=== PATIENT | female | born 1960 | race Caucasian/White ===

== ENCOUNTER → 2017-12-04 07:47 | Outpatient (CLI) | payer BC, SELFPAY ==
[2017-12-04 14:15] LABS: Basophils % 0.3 % (0.1-2.0); Eosinophils # 0.2 K/mm3 (0.0-0.4); Eosinophils % 3.2 % (0.1-12.0); Hematocrit 37.4 % (37.0-47.0); Hemoglobin 12.3 g/dL (12.2-16.2); Lymphocytes % 30.1 K/mm3 (10-50); Mean Corpuscular HGB Conc 32.9 g/dL (31.8-35.4); Mean Corpuscular Hemoglobin 28.5 pg (27.0-31.2); Mean Corpuscular Volume 86.8 fl (81-99); Mean Platelet Volume 8.6 fl (7.4-10.4); Monocytes # 0.4 K/mm3 (0.1-1.0); Monocytes % 5.7 % (1.7-9.3); Neutrophils # 4.1 K/mm3 (1.8-7.8); Neutrophils % 60.7 % (37.0-80.0); Platelet Count 177 K/mm3 (142-424); Red Blood Count 4.31 M/mm3 (4.20-5.40); Red Cell Distribution Width 15.4 % (11.5-17.5); White Blood Count 6.7 K/mm3 (4.8-10.8)
[2017-12-04 14:37] LABS: Alanine Aminotransferase 27 U/L (12-78); Albumin Level 3.8 gm/dL (3.4-5.0); Alkaline Phosphatase 89 U/L (46-116); Anion Gap 11.5 mEq/L (5-15); Aspartate Amino Transferase 24 U/L (15-37); Bilirubin,Direct 0.2 mg/dL (0.0-0.2); Bilirubin,Total 0.8 mg/dL (0.2-1.0); Blood Urea Nitrogen 14 mg/dL (7-18); Carbon Dioxide 30 mmol/L (21.0-32.0); Chloride 103 mmol/L (98-107); Chol/HDL Ratio 3.5 (1-3.5); Cholesterol 112 mg/dL (140-200); Creatinine,Serum 0.76 mg/dL (0.55-1.02); Estimated Glomerular Filt Rate > 60 ml/min (>60); Free T4 (Free Thyroxine) 1.64 ng/dl (0.76-1.46); GFR (African American) > 60 ML/MIN (>60); Glucose 132 mg/dL (74-106); HDL Cholesterol 32 mg/dL (29-89); LDL Cholesterol 54 mg/dL (0-130); Potassium 3.5 mmoL/L (3.5-5.1); Sodium 141 mmol/L (136-145); Thyroid Stimulating Hormone 1.58 uIU/ml (0.358-3.740); Total Protein,Serum 6.5 gm/dL (6.4-8.2); Triglycerides 131 mg/dL (30-200); VLDL Cholesterol 26 mg/dL (0-40)
== END ==
PROVIDERS: PCP Internal Medicine; Visit Provider Internal Medicine
DX: E78.5 Hyperlipidemia, unspecified (principal)
CPT/HCPCS: 36415; 80048; 80061; 80076; 84439; 84443; 85025

== ENCOUNTER → 2017-12-28 09:08 | Outpatient (CLI) | payer BC, SELFPAY ==
[2017-12-28 13:25] LABS: Basophils % 0.5 % (0.1-2.0); Eosinophils # 0.1 K/mm3 (0.0-0.4); Eosinophils % 1.4 % (0.1-12.0); Hematocrit 38.1 % (37.0-47.0); Hemoglobin 12.5 g/dL (12.2-16.2); Lymphocytes # 1.7 K/mm3 (0.7-4.5); Lymphocytes % 20.7 K/mm3 (10-50); Mean Corpuscular HGB Conc 32.8 g/dL (31.8-35.4); Mean Corpuscular Hemoglobin 27.9 pg (27.0-31.2); Mean Corpuscular Volume 85.1 fl (81-99); Mean Platelet Volume 8.3 fl (7.4-10.4); Monocytes # 0.3 K/mm3 (0.1-1.0); Monocytes % 3.9 % (1.7-9.3); Neutrophils # 6.2 K/mm3 (1.8-7.8); Neutrophils % 73.5 % (37.0-80.0); Platelet Count 185 K/mm3 (142-424); Red Blood Count 4.48 M/mm3 (4.20-5.40); Red Cell Distribution Width 15.1 % (11.5-17.5); White Blood Count 8.4 K/mm3 (4.8-10.8)
[2017-12-28 14:05] LABS: Hemoglobin A1C 6.7 % (0.0-7.0)
[2017-12-28 14:06] LABS: Alanine Aminotransferase 29 U/L (12-78); Albumin Level 3.8 gm/dL (3.4-5.0); Albumin/Globulin Ratio 1.3 (1.1-1.8); Alkaline Phosphatase 101 U/L (46-116); Anion Gap 16.4 mEq/L (5-15); Aspartate Amino Transferase 16 U/L (15-37); Bilirubin,Total 1.6 mg/dL (0.2-1.0); Blood Urea Nitrogen 15 mg/dL (7-18); Calcium 8.9 mg/dL (8.5-10.1); Carbon Dioxide 28 mmol/L (21.0-32.0); Chloride 104 mmol/L (98-107); Creatinine,Serum 0.62 mg/dL (0.55-1.02); Estimated Glomerular Filt Rate 99 ml/min (>60); GFR (African American) 120 ML/MIN (>60); Globulin 2.9 gm/dl (1.3-3.2); Glucose 140 mg/dL (74-106); Potassium 3.4 mmoL/L (3.5-5.1); Sodium 145 mmol/L (136-145); Total Protein,Serum 6.7 gm/dL (6.4-8.2); Uric Acid 5.3 mg/dL (2.6-7.2)
[2017-12-29 10:17] LABS: Creatinine, Urine 96.1 mg/dL (Not Estab.)
== END ==
PROVIDERS: PCP Nurse Practitioner Family; Visit Provider Nurse Practitioner Family
DX: E11.9 Type 2 diabetes mellitus without complications (principal); B99.9 Unspecified infectious disease; M10.9 Gout, unspecified
CPT/HCPCS: 36415; 80053; 82043; 83036; 84550; 85025

== ENCOUNTER → 2018-03-31 11:40 | Outpatient (CLI) | payer BC, SELFPAY ==
--- NOTE | 2018-03-31 11:45 | XR_ITS ---
XR sinus min 3V CLINICAL INDICATION: Right-sided facial pain and swelling, infected 2 ITS.REASON: INFECTION ORDERING PHYSICIAN: Dayana Orr PATIENT AGE: 58 years FINDINGS: There is irregular contour of the right mandibular molars consistent with caries involvement. There is mild mucosal thickening of the right maxillary sinus. No air-fluid level. No other significant anomalies evident. IMPRESSION: 1. Caries of the right mandibular molars. 2. Mild mucosal thickening right maxillary sinus
== END ==
PROVIDERS: PCP Nurse Practitioner Family; Visit Provider Nurse Practitioner Family
DX: J32.9 Chronic sinusitis, unspecified (principal)
CPT/HCPCS: 70220

== ENCOUNTER → 2019-06-15 13:39 | Outpatient (CLI) | payer BC, SELFPAY ==
[2019-06-15 14:13] LABS: Basophils % 0.6 % (0.1-2.0); Eosinophils # 0.2 K/mm3 (0.0-0.4); Hematocrit 38.8 % (37.0-47.0); Hemoglobin 12.4 g/dL (12.2-16.2); Lymphocytes % 28.8 % (10-50); Mean Corpuscular HGB Conc 32.1 g/dL (31.8-35.4); Mean Corpuscular Hemoglobin 26.4 pg (27.0-31.2); Mean Corpuscular Volume 82.4 fl (81-99); Mean Platelet Volume 8.7 fl (7.4-10.4); Monocytes # 0.4 K/mm3 (0.1-1.0); Monocytes % 5.9 % (1.7-9.3); Neutrophils # 4.3 K/mm3 (1.8-7.8); Neutrophils % 61.7 % (37.0-80.0); Platelet Count 206 K/mm3 (142-424); Red Blood Count 4.71 M/mm3 (4.20-5.40); Red Cell Distribution Width 15.3 % (11.5-17.5)
[2019-06-15 14:31] LABS: Alanine Aminotransferase 66 U/L (12-78); Albumin/Globulin Ratio 1.3 (1.1-1.8); Alkaline Phosphatase 87 U/L (46-116); Anion Gap 18.1 mEq/L (5-15); Aspartate Amino Transferase 56 U/L (15-37); Bilirubin,Total 1.1 mg/dL (0.2-1.0); Blood Urea Nitrogen 25 mg/dL (7-18); Calcium 9.4 mg/dL (8.5-10.1); Carbon Dioxide 24 mmol/L (21.0-32.0); Chloride 103 mmol/L (98-107); Chol/HDL Ratio 4.3 (1-3.5); Cholesterol 126 mg/dL (140-200); Creatinine,Serum 0.89 mg/dL (0.55-1.02); Estimated Glomerular Filt Rate 65 ml/min (>60); GFR (African American) 78 ML/MIN (>60); Globulin 3.1 gm/dl (1.3-3.2); Glucose 163 mg/dL (74-106); HDL Cholesterol 29 mg/dL (29-89); LDL Cholesterol 44 mg/dL (0-130); Potassium 4.1 mmoL/L (3.5-5.1); Sodium 141 mmol/L (136-145); T4 (Thyroxine) 13.1 ug/dl (4.7-13.3); Thyroid Stimulating Hormone 0.79 uIU/ml (0.358-3.740); Total Protein,Serum 7.1 gm/dL (6.4-8.2); Triglycerides 267 mg/dL (30-200); Uric Acid 6.7 mg/dL (2.6-7.2); VLDL Cholesterol 53 mg/dL (0-40)
[2019-06-15 16:59] LABS: Hemoglobin A1C 7.3 % (0.0-7.0)
[2019-06-16 22:06] LABS: Vitamin D 25 Hydroxy 31.9 ng/mL (30.0-100.0)
== END ==
PROVIDERS: Visit Provider Physician Assistant
DX: E03.9 Hypothyroidism, unspecified (principal); I10 Essential (primary) hypertension; M10.9 Gout, unspecified; E78.5 Hyperlipidemia, unspecified
CPT/HCPCS: 80053; 80061; 82652; 83036; 84436; 84443; 84550; 85025

== ENCOUNTER → 2019-07-14 07:42 | Outpatient (CLI) | payer BC, SELFPAY ==
--- NOTE | 2019-07-14 07:46 | CA_ITS ---
APPROVED REPORT Senior Business Consultant: TRINITY Laterality: Bilateral Study Quality: Good Indications: bilateral carotid artery stenosis Risk Factors Hypertension: TIA/CVA History Hyperlipidemia Diabetes, Doppler Spectral Velocity Analysis ECA (R) 178.00/22.60 cm/s ECA (L) 285.00/48.50 cm/s dICA (R) 88.60/36.70 cm/s dICA (L) 80.80/30.10 cm/s Del (R) 72.80/27.90 cm/s Del (L) 84.40/31.70 cm/s pICA (R) 114.00/29.40 cm/s pICA (L) 65.80/24.60 cm/s dCCA (R) 64.40/20.40 cm/s dCCA (L) 64.90/20.60 cm/s pCCA (R) 62.90/14.10 cm/s pCCA (L) 64.30/9.37 cm/s Vert (R) 26.60/13.70 cm/s Vert (L) 50.90/19.60 cm/s ICA/CCA 1.77 ICA/CCA 1.30 Findings Duplex evaluation demonstrates stenosis of the right proximal internal carotid artery in the range of 20-49% with PSV <140 cm/sec, EDV <100 cm/sec, and IC/CC Ratio <4.0.Duplex evaluation demonstrates stenosis of the left proximal internal carotid artery in the range of 20-49% with PSV <140 cm/sec, EDV <100 cm/sec, and IC/CC Ratio <4.0.Antegrade flow seen bilateral vertebral arteries. Conclusion Duplex evaluation demonstrates stenosis of the right proximal internal carotid artery in the range of 20-49% with PSV <140 cm/sec, EDV <100 cm/sec, and IC/CC Ratio <4.0.Duplex evaluation demonstrates stenosis of the left proximal internal carotid artery in the range of 20-49% with PSV <140 cm/sec, EDV <100 cm/sec, and IC/CC Ratio <4.0.Antegrade flow seen bilateral vertebral arteries. Electronically signed by : Larry Stewart MD 07/14/2019 19:34:47
--- NOTE | 2019-07-14 07:46 | CA_ITS ---
APPROVED REPORT EXAM: Comprehensive 2D, Doppler, and color-flow Echocardiogram Header Boss: Jeri Freeman RT(R) Ht: 5 ft 5 in Wt: 258lbs BSA: 2.20 BP: 126/84 mmHg Indications: Shortness of Breath, Diabetes, Obesity, Hyperlipidemia, Hypertension/HDD Left Ventricle Left atrium is mildly enlarged, left ventricle is normal size, there is mild concentric left ventricular hypertrophy, visually estimated ejection fraction 55% with no regional wall motion abnormality, grade 1 diastolic dysfunction seen with tissue Doppler evidence of raise left atrial pressure. Right Ventricle Right atrium and right ventricular normal size and contractility. Aortic Valve Aortic valve is thickened and calcified, leaflet continue to display mobility, there is no aortic stenosis, there is trace aortic insufficiency. Mitral Valve Mitral valve leaflets are minimally thickened, there is no mitral stenosis, there is mild mitral regurgitation. Tricuspid Valve Tricuspid valve is grossly normal, there is mild tricuspid regurgitation, tricuspid regurgitation jet velocity is inadequate for occlusion of the right ventricular systolic pressure. Pulmonic Valve Pulmonic valve is poorly visualized. Great Vessels Aortic root is normal size. Pericardium No significant pericardial effusion noted. 2D Dimensions LVOT 2.20 cm (M/F) 1.5-2.5 M-Mode Dimensions RVDd 2.20 cm (0.9-2.6) LA Diam 3.30 cm (1.9-4.0) LVDd 5.40 cm (3.5-5.7) Ao Diam 2.50 cm (2.0-3.7) LVDs 3.10 cm (3.5-5.7) AV Cusp 1.80 cm (1.5-2.6) IVSd 0.90 cm (0.6-1.1) PWd 0.80 cm (0.6-1.1) EF (Teich) 73.10% FS 42.60% EDV (Teich) 141.00 mL ESV (Teich) 37.90 mL LV Diastology E/A Ratio 1.0 MED E' 6.43 (< 7 cm/sec) E'/MED E' Ratio 14.30 (>14) LAT E' 6.34 (<10 cm/sec) E/LAT E' Ratio 14.50 (>14) Mitral Valve MV E Max Arnol. 91.80 (40-130 cm/s) MV A Velocity 94.30 (40-130 cm/s) E/A Ratio 1.00 Conclusion 1. Mildly enlarged left atrium, normal left ventricular size, mild concentric left ventricular hypertrophy, visually estimated ejection fraction 55% with no regional wall motion abnormality, grade 1 diastolic dysfunction seen with tissue Doppler evidence of raise left atrial pressure. 2. Thickened and calcified aortic valve without aortic stenosis, there is trace aortic insufficiency. 3. Mild mitral and tricuspid regurgitation. 4. No significant pericardial effusion noted. Electronically signed by : Cody Montesinos, 07/15/2019 10:11:34
== END ==
PROVIDERS: PCP Emergency Medicine; Visit Provider Internal Medicine Cardiovascular Disease
DX: E11.9 Type 2 diabetes mellitus without complications (principal); I65.23 Occlusion and stenosis of bilateral carotid arteries; R06.00 Dyspnea, unspecified; E78.5 Hyperlipidemia, unspecified; I10 Essential (primary) hypertension; Z79.84 Long term (current) use of oral hypoglycemic drugs
CPT/HCPCS: 93306; 93880

== ENCOUNTER → 2019-12-13 07:34 | Outpatient (CLI) | payer BC, SELFPAY ==
[2019-12-13 14:10] LABS: Alanine Aminotransferase 40 U/L (12-78); Albumin Level 3.9 gm/dL (3.4-5.0); Albumin/Globulin Ratio 1.3 (1.1-1.8); Alkaline Phosphatase 94 U/L (46-116); Anion Gap 16.6 mEq/L (5-15); Aspartate Amino Transferase 41 U/L (15-37); Bilirubin,Total 1.1 mg/dL (0.2-1.0); Blood Urea Nitrogen 13 mg/dL (7-18); Calcium 9.4 mg/dL (8.5-10.1); Carbon Dioxide 26 mmol/L (21.0-32.0); Chloride 102 mmol/L (98-107); Chol/HDL Ratio 4.5 (1-3.5); Cholesterol 143 mg/dL (140-200); Creatinine,Serum 0.64 mg/dL (0.55-1.02); Estimated Glomerular Filt Rate 95 ml/min (>60); GFR (African American) 115 ML/MIN (>60); Globulin 2.9 gm/dl (1.3-3.2); Glucose 197 mg/dL (74-106); HDL Cholesterol 32 mg/dL (29-89); LDL Cholesterol 71 mg/dL (0-130); Potassium 3.6 mmoL/L (3.5-5.1); Sodium 141 mmol/L (136-145); T4 (Thyroxine) 15.1 ug/dl (4.7-13.3); Thyroid Stimulating Hormone 1.66 uIU/ml (0.358-3.740); Total Protein,Serum 6.8 gm/dL (6.4-8.2); Triglycerides 198 mg/dL (30-200); VLDL Cholesterol 40 mg/dL (0-40)
[2019-12-13 14:11] LABS: Basophils % 0.4 % (0.1-2.0); Eosinophils # 0.3 K/mm3 (0.0-0.4); Hematocrit 39.1 % (37.0-47.0); Lymphocytes # 2.2 K/mm3 (0.7-4.5); Lymphocytes % 30.3 % (10-50); Mean Corpuscular HGB Conc 33.2 g/dL (31.8-35.4); Mean Corpuscular Hemoglobin 27.8 pg (27.0-31.2); Mean Corpuscular Volume 83.8 fl (81-99); Mean Platelet Volume 9.8 fl (7.4-10.4); Monocytes # 0.4 K/mm3 (0.1-1.0); Monocytes % 5.9 % (1.7-9.3); Neutrophils # 4.3 K/mm3 (1.8-7.8); Neutrophils % 59.5 % (37.0-80.0); Platelet Count 221 K/mm3 (142-424); Red Blood Count 4.66 M/mm3 (4.20-5.40); Red Cell Distribution Width 14.9 % (11.5-17.5); White Blood Count 7.2 K/mm3 (4.8-10.8)
[2019-12-13 15:41] LABS: Hemoglobin A1C 7.6 % (0.0-7.0)
[2019-12-15 12:59] LABS: Vitamin D 25 Hydroxy 38.5
[2019-12-16 10:51] LABS: Microalbumin, Urine 56.9 ug/mL (Not Estab.)
== END ==
PROVIDERS: Visit Provider Physician Assistant
DX: E03.9 Hypothyroidism, unspecified (principal); E11.9 Type 2 diabetes mellitus without complications; E78.5 Hyperlipidemia, unspecified; I10 Essential (primary) hypertension; Z79.84 Long term (current) use of oral hypoglycemic drugs
CPT/HCPCS: 36415; 80053; 80061; 82043; 82652; 83036; 84436; 84443; 85025

== ENCOUNTER → 2021-03-12 07:33 | Outpatient (CLI) | payer BC, SELFPAY ==
[2021-03-12 14:05] LABS: Chloride 100 mmol/L (98-107)
[2021-03-12 14:06] LABS: Potassium 4.3 mmoL/L (3.5-5.1); Sodium 138 mmol/L (136-145)
[2021-03-12 14:08] LABS: Alanine Aminotransferase 35 U/L (12-78); Anion Gap 16.3 mEq/L (5-15); Aspartate Amino Transferase 49 U/L (14-36); Blood Urea Nitrogen 18 mg/dl (7-17); Carbon Dioxide 26 mmol/L (22.0-30.0); Estimated Glomerular Filt Rate 102 ml/min (>60); GFR (African American) 123 ML/MIN (>60)
[2021-03-12 14:09] LABS: Albumin Level 4.5 g/dl (3.5-5.0); Albumin/Globulin Ratio 1.7 (1.1-1.8); Alkaline Phosphatase 80 U/L (38-126); Bilirubin,Total 1.5 mg/dl (0.2-1.3); Calcium 9.8 mg/dl (8.4-10.2); Chol/HDL Ratio 4.9 (1-3.5); Cholesterol 137 mg/dl (140-200); Globulin 2.7 g/dL (1.3-3.2); Glucose 196 mg/dl (74-100); HDL Cholesterol 28 mg/dl (40-60); Total Protein,Serum 7.2 g/dl (6.3-8.2); Triglycerides 287 mg/dl (30-150); VLDL Cholesterol 57 mg/dL (0-40)
[2021-03-12 14:14] LABS: Basophils % 0.4 % (0.1-2.0); Eosinophils # 0.2 K/mm3 (0.0-0.4); Eosinophils % 2.9 % (0.1-12.0); Hematocrit 38.5 % (37.0-47.0); Hemoglobin 12.8 g/dL (12.2-16.2); Lymphocytes # 2.3 K/mm3 (0.7-4.5); Lymphocytes % 29.8 % (10-50); Mean Corpuscular HGB Conc 33.3 g/dL (31.8-35.4); Mean Corpuscular Volume 84.1 fl (81-99); Mean Platelet Volume 8.6 fl (7.4-10.4); Monocytes # 0.3 K/mm3 (0.1-1.0); Monocytes % 3.8 % (1.7-9.3); Neutrophils # 4.9 K/mm3 (1.8-7.8); Neutrophils % 63.2 % (37.0-80.0); Platelet Count 188 K/mm3 (142-424); Red Blood Count 4.58 M/mm3 (4.20-5.40); Red Cell Distribution Width 14.7 % (11.5-17.5); White Blood Count 7.7 K/mm3 (4.8-10.8)
[2021-03-12 14:20] LABS: Direct LDL Cholesterol 65.31 mg/dL (100-129)
[2021-03-12 14:21] LABS: Creatinine,Urine Random 120 mg/dL (Not Estab.)
[2021-03-12 14:23] LABS: 25-OH Vitamin D, Total 46.6 ng/mL (30-100)
[2021-03-12 14:24] LABS: Microalbumin/Creatinine Ratio 60.4; T4 (Thyroxine) 11.7 ug/dl (5.53-11.0)
[2021-03-12 14:38] LABS: Thyroid Stimulating Hormone 3.78 uIU/mL (0.465-4.68)
== END ==
PROVIDERS: Visit Provider Nurse Practitioner Family
DX: E03.9 Hypothyroidism, unspecified (principal); E11.9 Type 2 diabetes mellitus without complications; E78.5 Hyperlipidemia, unspecified; I10 Essential (primary) hypertension; I25.10 Atherosclerotic heart disease of native coronary artery without angina pectoris; Z79.84 Long term (current) use of oral hypoglycemic drugs; Z68.41 Body mass index [BMI] 40.0-44.9, adult
CPT/HCPCS: 36415; 80053; 80061; 82043; 82306; 82570; 83036; 84436; 84443; 85025

== ENCOUNTER 2021-10-21 10:49 | Emergency (ER) | payer BC, SELFPAY ==
[2021-10-21 10:50] VITALS: BP 169/98; PULSE 95; RESP 19; TEMP 36.9; O2SAT 96; BMI 38.7
[2021-10-21 11:18] LABS: UTC Strep Screen (Rapid) Negative (Negative)
--- NOTE | 2021-10-21 11:21 | HMH.EDUTC ---
[facility] [place] Clinical Impression: URI (upper respiratory infection) Qualifiers: URI type: unspecified URI Qualified Code(s): J06.9 - Acute upper respiratory infection, unspecified Disposition: Home, Self-Care Condition on Discharge: Good Instructions: DI for Sinusitis, Sinusitis, Cough, Sore Throat Additional Instructions: *Monitor Temp, Over the counter Motrin or Tylenol as directed/as needed Tylenol every 4 hours and Motrin every 6 hours (as long as your family doctor has told you that you can take it) for fever or pain. and straight to ER if unable to lower temp less than 101.0 after medication given *Warm salt water gargles may help to soothe the throat *Throat Lozenges *Warm fluids like tea with honey may help to soothe the throat *Sleep elevated *Humidifier/Vaporizer *Flonase 2 sprays in each nostril daily but be aware that it may take 2-3 days before you notice improvement Your throat swab was sent for culture. Those results are typically sent to your primary care. Be sure to follow up in 2-3 days with your family doctor/primary care physician if no improvement so they can review those result and treat if necessary. If you don?t have a primary care doctor, I recommend you get one but in the mean time, you will have to return to a walk in clinic Follow up IMMEDIATELY for new or worsening symptoms or no Noticeable improvement over the next 48-72 hours. 911 for difficulty breathing or swallowing You were tested for today for COVID19 your test result should be back in the next 24-48 hours, you check your results on the [facility] My Health Portal if you have trouble logging on you may call You was given a handout with instructions for Self Quarantine and Self isolation for while you wait on test results and what to do if they are positive If you are positive the Health Dept will be contacting you also Make sure to take your Vitamins Vit. C Vit D and Zinc if you can take them Prescriptions: Benzonatate [Benzonatate 100mg cap] 100 mg PO TID PRN #30 cap PRN Reason: Cough Transmission Status: Pending to [id number] Fluticasone Propionate [Flonase 50mcg nasal spray 16gm] 1 spr NS DAILY #1 each Transmission Status: Pending to [id number] Azithromycin [Z-Tacso 250mg Tab] 250 mg PO DIRECTED #6 tab Transmission Status: Pending to [id number] Referrals: Rhonda Hopper PA [Primary Care Provider] - As needed Time of Disposition: 11:35 Medical Decision Making - Ned Inquiry Pt receiving controlled substance: No Ned was queried for this patient: No Vital Signs: 10/21/21 10:50 Temperature 98.4 F Temperature Source Oral Pulse Rate [Right Brachial] 95 H Respiratory Rate 19 Blood Pressure [Right Arm] 169/98 H Blood Pressure Mean [Right Arm] 121 Blood Pressure Source [Right Arm] Automatic Cuff Blood Pressure Position [Right Arm] Sitting 02 Sat by Pulse Oximetry 96 Oxygen Delivery Method Room Air - Lab Data Lab results reviewed: Yes: I reviewed the patient's lab results. Lab Results 10/21/21 11:16: Strep Scn Rapid Clinic Negative Orders (Tests/Meds): ORDERS Category Date Time Status Strep Screen Confirmation Stat Micro 10/21/21 11:16 Received Medical Decision Narrative: Patient state that she has taken azithromycin in the past without reactions or complications [facility] [place] HPI - General Stated complaint: sore throat, cough, runny nose, congestion Time Seen by Provider: 10/21/21 11:21 Mode of Arrival: Ambulatory Source of Information: Patient Limitations: No Limitations Description of Symptoms (Recalled from Triage Doc. by RN): PATIENT C/O SORE THROAT, COUGH, AND EAR PAIN SINCE THURSDAY HEENT Symptoms (Recalled from RN notes): Yes Resp Symptoms (Recalled from RN notes): Yes Skin Symptoms (Recalled from RN notes): No MS Symptoms (Recalled from RN notes): No Functional Status (Recalled from RN notes): WNL - History of Present Illness Provider Complaint: Dane
[2021-10-21 11:43] VITALS: BP 169/98; PULSE 95; RESP 19; TEMP 36.9; O2SAT 96
== END 2021-10-21 11:50 | disposition home or self-care (01) ==
PROVIDERS: Emergency Provider Nurse Practitioner; PCP Physician Assistant
DX: J06.9 Acute upper respiratory infection, unspecified (principal); I25.10 Atherosclerotic heart disease of native coronary artery without angina pectoris; I10 Essential (primary) hypertension; E78.5 Hyperlipidemia, unspecified; E11.9 Type 2 diabetes mellitus without complications; Z79.899 Other long term (current) drug therapy
CPT/HCPCS: 87880; 99203; C9803; G0463; U0003; U0005

== ENCOUNTER → 2022-03-12 12:34 | Outpatient (CLI) | payer BC, SELFPAY ==
--- NOTE | 2022-03-12 12:35 | CA_ITS ---
FINAL REPORT TECHNIQUE: Color Doppler, duplex Doppler and caban scale sonography of the bilateral neck arterial vasculature was performed. Velocities were measured in the carotid arteries. Stenosis evaluation based on the validated velocity criteria. CLINICAL HISTORY: ORESTES, cad, dm, HTN,HLD, EX-SMOKER FINDINGS: The peak systolic velocity of the right common carotid artery is 79 cm/s. The peak systolic velocity of the right internal carotid artery is 140 cm/s and end diastolic velocity 38 cm/s. The ICA/CCA ratio is 2.3. A moderate amount of plaque is present. The right external carotid artery is patent. The right vertebral artery is patent with antegrade flow. The peak systolic velocity of the left common carotid artery is 63 cm/s. The peak systolic velocity of the left internal carotid artery is 190 cm/s and end diastolic velocity 49 cm/s. The ICA/CCA ratio is 3.2. A moderate amount of plaque is present. The left external carotid artery is patent.The left vertebral artery is patent with antegrade flow. IMPRESSION: The peak systolic velocity is less than 180 cm/s bilaterally however the ICA to CCA ratios are abnormally elevated measuring 2.3 on the right and 3.2 on the left. These findings are concerning for greater than 50% stenosis bilaterally, left greater than right. Recommend correlation with CTA. Bilateral patent vertebral arteries with antegrade flow. Reviewed, Interpreted and Dictated by Malik Mosquera MD Transcribed by Eleanor Sykes Authenticated by Malik Mosquera MD on 03/12/2022 02:46:[address] [facility]
--- NOTE | 2022-03-12 12:55 | CA_ITS ---
APPROVED REPORT EXAM: Comprehensive 2D, Doppler, and color-flow Echocardiogram Car Supplier: Jeri Freeman RT(R) Ht: 5 ft 5 in Wt: 240lbs BSA: 2.14 BP: 138/62 mmHg Indications: SOA, CAD, Obesity,DM, HTN, HLD, ex-smoker 2D Dimensions Aortic Root 2.06 cm LA Volume 26.60 mL LA Volume Index 12.40 mL/m2 (M/F) 16-34 M-Mode Dimensions RVDd 2.17 cm (0.9-2.6) LA Diam 2.86 cm (1.9-4.0) LVDd 4.37 cm (3.5-5.7) Ao Diam 2.63 cm (2.0-3.7) LVDs 3.23 cm (3.5-5.7) IVSd 1.22 cm (0.6-1.1) PWd 0.80 cm (0.6-1.1) EF (Teich) 51.40% FS 26.10% EDV (Teich) 86.30 mL ESV (Teich) 41.90 mL LV Diastology E Decel Time 210.00 (160-240 msec) E/A Ratio 0.72 MED E' 7.00 (< 7 cm/sec) E'/MED E' Ratio 10.54 (>14) LAT E' 5.30 (<10 cm/sec) E/LAT E' Ratio 13.92 (>14) Mitral Valve MV E Max Arnol. 74.00 (40-130 cm/s) MV A Velocity 102.00 (40-130 cm/s) E/A Ratio 0.72 MV Decel. Time 210.00 (160-240 ms) MV PHT 62.00 ms Left Ventricle Left atrium is mildly enlarged, left ventricle is normal size, mild concentric left ventricular hypertrophy, estimated ejection fraction 55% with no regional wall motion abnormality, grade 1 diastolic dysfunction. Left atrium with evidence of raise left atrial pressure. Right Ventricle Right atrium and right ventricle are normal size and contractility. Aortic Valve Aortic valve is thickened and calcified without Doppler evidence of aortic stenosis or aortic insufficiency. Mitral Valve Mitral valve is grossly normal, there is trace mitral regurgitation. Tricuspid Valve Tricuspid valve grossly normal, there is trace tricuspid regurgitation. Tricuspid regurgitation but this is inadequate for calculation of the right ventricular systolic pressure. Pulmonic Valve Pulmonic valve is poorly visualized. Great Vessels Aortic root is normal size. Inferior vena cava is poorly visualized. Pericardium No significant pericardial effusion noted. Conclusion 1. Left atrium is mildly enlarged, left ventricle is normal size, mild concentric left ventricular hypertrophy, estimated ejection fraction 55% with no regional wall motion abnormality, grade 1 diastolic dysfunction seen without tissue Doppler evidence of raise left atrial pressure. 2. Thickened and calcified aortic valve without aortic stenosis or aortic insufficiency. 3. Trace mitral and tricuspid regurgitation. 4. No significant pericardial effusion noted. Electronically signed by : oCdy Montesinos MD 03/12/2022 20:15:59
== END ==
PROVIDERS: PCP Physician Assistant; Visit Provider Nurse Practitioner Family
DX: R06.00 Dyspnea, unspecified (principal); E78.2 Mixed hyperlipidemia; R09.89 Other specified symptoms and signs involving the circulatory and respiratory systems; I65.23 Occlusion and stenosis of bilateral carotid arteries; I25.10 Atherosclerotic heart disease of native coronary artery without angina pectoris; I10 Essential (primary) hypertension; I73.9 Peripheral vascular disease, unspecified
CPT/HCPCS: 82330; 83970; 93306; 93880

== ENCOUNTER → 2022-03-12 17:01 | Outpatient (CLI) | payer BC, SELFPAY ==
[2022-03-12 14:01] LABS: Basophils # 0.1 K/mm3 (0-0.2); Basophils % 0.9 % (0.1-2.0); Eosinophils # 0.2 K/mm3 (0.0-0.4); Eosinophils % 2.6 % (0.1-12.0); Hematocrit 39.6 % (37.0-47.0); Hemoglobin 13.3 g/dL (12.2-16.2); Lymphocytes # 1.8 K/mm3 (0.7-4.5); Mean Corpuscular HGB Conc 33.4 g/dL (31.8-35.4); Mean Corpuscular Hemoglobin 29.4 pg (27.0-31.2); Mean Corpuscular Volume 87.9 fl (81-99); Mean Platelet Volume 9.4 fl (7.4-10.4); Monocytes # 0.3 K/mm3 (0.1-1.0); Monocytes % 4.4 % (1.7-9.3); Neutrophils # 3.5 K/mm3 (1.8-7.8); Neutrophils % 60.1 % (37.0-80.0); Platelet Count 196 K/mm3 (142-424); Red Blood Count 4.51 M/mm3 (4.20-5.40); White Blood Count 5.8 K/mm3 (4.8-10.8)
[2022-03-12 14:39] LABS: 25-OH Vitamin D, Total 35.8 ng/mL (30-100)
[2022-03-12 14:50] LABS: Microalbumin/Creatinine Ratio 163.2
[2022-03-12 14:54] LABS: Creatinine,Urine Random 86 mg/dL (Not Estab.)
[2022-03-12 15:06] LABS: Hemoglobin A1C 9.5 % (4.0-6.0)
[2022-03-12 15:56] LABS: Alanine Aminotransferase 51 U/L (12-78); Albumin Level 4.5 g/dl (3.5-5.0); Albumin/Globulin Ratio 1.6 (1.1-1.8); Alkaline Phosphatase 84 U/L (38-126); Anion Gap 18.3 mEq/L (5-15); Aspartate Amino Transferase 82 U/L (14-36); Bilirubin,Total 2.1 mg/dl (0.2-1.3); Blood Urea Nitrogen 21 mg/dl (7-17); Carbon Dioxide 26 mmol/L (22.0-30.0); Chloride 101 mmol/L (98-107); Chol/HDL Ratio 5.3 (1-3.5); Cholesterol 122 mg/dl (140-200); Estimated Glomerular Filt Rate 101 ml/min (>60); GFR (African American) 123 ML/MIN (>60); Globulin 2.9 g/dL (1.3-3.2); Glucose 230 mg/dl (74-100); HDL Cholesterol 23 mg/dl (40-60); Potassium 4.3 mmoL/L (3.5-5.1); Sodium 141 mmol/L (136-145); Total Protein,Serum 7.4 g/dl (6.3-8.2); Triglycerides 335 mg/dl (30-150); VLDL Cholesterol 67 mg/dL (0-40)
[2022-03-12 16:07] LABS: Direct LDL Cholesterol 47.75 mg/dL (100-129)
[2022-03-12 16:27] LABS: Thyroid Stimulating Hormone 0.08 uIU/mL (0.465-4.68)
== END ==
PROVIDERS: Visit Provider Physician Assistant
DX: E03.9 Hypothyroidism, unspecified (principal); E11.9 Type 2 diabetes mellitus without complications; I10 Essential (primary) hypertension; E66.9 Obesity, unspecified; Z68.41 Body mass index [BMI] 40.0-44.9, adult
CPT/HCPCS: 80053; 80061; 82043; 82306; 82570; 83036; 84443; 85025

== ENCOUNTER → 2022-03-19 10:13 | Outpatient (CLI) | payer BC, SELFPAY | PROVIDERS: PCP Physician Assistant; Visit Provider Internal Medicine | DX: I65.29 Occlusion and stenosis of unspecified carotid artery (principal) ==

== ENCOUNTER → 2022-04-02 07:53 | Outpatient (CLI) | payer BC, SELFPAY ==
--- NOTE | 2022-04-02 07:54 | CT_ITS ---
FINAL REPORT CLINICAL HISTORY: molina FINDINGS: CTA HEAD With regards the intracranial vessels, the bilateral anterior cerebral, middle cerebral and posterior cerebral arteries are patent. There is 30-40% stenosis of the pre cavernous right ICA. The basilar artery is patent. There is no evidence of aneurysm formation. IMPRESSION: 30-40% stenosis of the pre cavernous right ICA. CTA NECK Thin section axial CT with contrast with multiplanar reconstruction NASCET criteria and technique was utilized during interpretation. Aortic arch: Arch shows no significant narrowing. Great vessel origins are widely patent . Right carotid: There is less than 30% stenosis in the distal right CCA.. There is approximately 30% stenosis at the level of the right carotid bulb. More distal ICA is patent. The right vertebral artery is smaller than the left. Left carotid: No significant stenosis is seen of the cervical common or internal carotid artery . There is calcified plaque at the left carotid bifurcation. Vertebrals: Left vertebral artery is dominant and patent. No significant stenosis is present . IMPRESSION: Approximately 30% stenosis at the level of the right carotid bulb. Less than 30% stenosis of the distal right CCA. Reviewed, Interpreted and Dictated by Sammy Mishra III, MD Transcribed by Juarez Amin Authenticated by Sammy Mishra III, MD on 04/02/2022 11:17:27 AM [facility]
--- NOTE | 2022-04-02 07:54 | CT_ITS ---
FINAL REPORT TECHNIQUE: Axial CT images of the abdomen were obtained with IV contrast only. Coronal reformatted images were also obtained. This study was performed with techniques to keep radiation doses as low as reasonably achievable (ALARA). Individualized dose reduction techniques using automated exposure control or adjustment of mA and/or kV according to the patient''s size were employed. CLINICAL HISTORY: r/o malignancy, elevated calcium levels FINDINGS: The lung bases are clear. The liver has an unremarkable appearance, without evidence of mass. There is a large gallstone in the gallbladder. There is no evidence of biliary ductal dilatation. The pancreas appears normal. The spleen size is within normal limits. There are bilateral renal cysts, largest on the right at 27 mm. There is a right renal artery stent. There is a duplicated right renal collecting system. There is mild bilateral renal scarring. There is no evidence of adenopathy. No abnormal fluid collection is seen. No localized inflammatory processes identified. There are moderate vascular calcifications. IMPRESSION: Cholelithiasis. Moderate vascular calcifications. Bilateral renal cysts. Reviewed, Interpreted and Dictated by Sammy Mishra III, MD Transcribed by Juarez Amin Authenticated by Sammy Mishra III, MD on 04/02/2022 11:03:49 AM [facility]
--- NOTE | 2022-04-02 08:48 | CT_ITS ---
FINAL REPORT CLINICAL HISTORY: ORESTES FINDINGS: Axial images of the head were obtained without and with contrast. Coronal reformatted images were also obtained. This study was performed with techniques to keep radiation doses as low as reasonably achievable (ALARA). Individualized dose reduction techniques using automated exposure control or adjustment of mA and/or kV according to the patient's size were employed. There is no evidence of intracranial hemorrhage or mass. There is no evidence of acute infarct. There is no evidence of shift of the midline structures. No skull abnormality is seen on the bone window images. No abnormal contrast enhancement is seen. IMPRESSION: No acute intracranial abnormality identified. Reviewed, Interpreted and Dictated by Sammy Mishra III, MD Transcribed by Juarez Amin Authenticated by Sammy Mishra III, MD on 04/02/2022 11:03:49 AM [facility]
== END ==
PROVIDERS: PCP Physician Assistant; Visit Provider Internal Medicine
DX: I65.23 Occlusion and stenosis of bilateral carotid arteries (principal); E11.9 Type 2 diabetes mellitus without complications; E83.52 Hypercalcemia; E78.5 Hyperlipidemia, unspecified; I25.10 Atherosclerotic heart disease of native coronary artery without angina pectoris; I73.9 Peripheral vascular disease, unspecified; Z79.84 Long term (current) use of oral hypoglycemic drugs
CPT/HCPCS: 70470; 70498; 74160; Q9967

== ENCOUNTER → 2022-04-15 07:06 | Outpatient (CLI) | payer BC, SELFPAY ==
[2022-04-15 14:29] LABS: Chloride 105 mmol/L (98-107); Potassium 4.2 mmoL/L (3.5-5.1); Sodium 138 mmol/L (136-145)
[2022-04-15 14:32] LABS: Anion Gap 16.2 mEq/L (5-15); Blood Urea Nitrogen 35 mg/dl (7-17); Calcium 10.4 mg/dl (8.4-10.2); Carbon Dioxide 21 mmol/L (22.0-30.0); Estimated Glomerular Filt Rate 85 ml/min (>60); GFR (African American) 102 ML/MIN (>60); Glucose 235 mg/dl (74-100)
[2022-04-15 14:39] LABS: Hemoglobin A1C 8.9 % (4.0-6.0)
[2022-04-16 17:10] LABS: Calcium, Ionized 5.5 mg/dL (4.5-5.6)
== END ==
PROVIDERS: Visit Provider Physician Assistant
DX: E78.5 Hyperlipidemia, unspecified (principal); E83.52 Hypercalcemia
CPT/HCPCS: 36415; 80048; 82330; 83036

== ENCOUNTER → 2022-11-05 13:59 | Outpatient (CLI) | payer BC, SELFPAY ==
[2022-11-05 15:06] LABS: Alanine Aminotransferase 40 U/L (12-78); Albumin Level 4.6 g/dl (3.5-5.0); Alkaline Phosphatase 101 U/L (38-126); Anion Gap 15.7 mEq/L (5-15); Aspartate Amino Transferase 54 U/L (14-36); Bilirubin,Total 1.9 mg/dl (0.2-1.3); Blood Urea Nitrogen 28 mg/dl (7-17); Calcium 9.7 mg/dl (8.4-10.2); Carbon Dioxide 28 mmol/L (22.0-30.0); Chloride 101 mmol/L (98-107); Chol/HDL Ratio 5.4 (1-3.5); Cholesterol 129 mg/dl (140-200); Estimated Glomerular Filt Rate 72 ml/min (>60); GFR (African American) 88 ML/MIN (>60); Globulin 2.3 g/dL (1.3-3.2); Glucose 310 mg/dl (74-100); HDL Cholesterol 24 mg/dl (40-60); Potassium 4.7 mmoL/L (3.5-5.1); Sodium 140 mmol/L (136-145); Total Protein,Serum 6.9 g/dl (6.3-8.2); Triglycerides 302 mg/dl (30-150); VLDL Cholesterol 60 mg/dL (0-40)
[2022-11-05 15:16] LABS: Basophils # 0.1 K/mm3 (0-0.2); Eosinophils # 0.2 K/mm3 (0.0-0.4); Eosinophils % 3.1 % (0.1-12.0); Hematocrit 40.8 % (37.0-47.0); Hemoglobin 13.4 g/dL (12.2-16.2); Lymphocytes # 2.1 K/mm3 (0.7-4.5); Lymphocytes % 29.4 % (10-50); Mean Corpuscular HGB Conc 32.7 g/dL (31.8-35.4); Mean Corpuscular Hemoglobin 29.3 pg (27.0-31.2); Mean Corpuscular Volume 89.6 fl (81-99); Mean Platelet Volume 9.7 fl (7.4-10.4); Monocytes # 0.4 K/mm3 (0.1-1.0); Monocytes % 5.6 % (1.7-9.3); Neutrophils # 4.3 K/mm3 (1.8-7.8); Neutrophils % 60.9 % (37.0-80.0); Platelet Count 181 K/mm3 (142-424); Red Blood Count 4.56 M/mm3 (4.20-5.40); White Blood Count 7.1 K/mm3 (4.8-10.8)
[2022-11-05 15:24] LABS: 25-OH Vitamin D, Total 42.8 ng/mL (30-100)
[2022-11-05 15:37] LABS: Thyroid Stimulating Hormone 1.33 uIU/mL (0.465-4.68)
== END ==
PROVIDERS: PCP Physician Assistant; Visit Provider Physician Assistant
DX: E11.9 Type 2 diabetes mellitus without complications (principal); R53.83 Other fatigue; E66.9 Obesity, unspecified; Z68.39 Body mass index [BMI] 39.0-39.9, adult; Z79.84 Long term (current) use of oral hypoglycemic drugs
CPT/HCPCS: 80053; 80061; 82306; 83036; 84443; 85025

== ENCOUNTER → 2022-11-10 08:49 | Outpatient (CLI) | payer BC, SELFPAY ==
--- NOTE | 2022-11-10 09:10 | US_ITS ---
FINAL REPORT CLINICAL HISTORY: Elevated Liver Enzymes FINDINGS: Sonographic images of the right upper quadrant were obtained. The pancreas is partially obscured. There is fatty infiltration of the liver. A large stone is seen in the gallbladder. There is no evidence of biliary ductal dilatation.The common duct measures 4mm. Limited images of the right kidney are unremarkable. IMPRESSION: Cholelithiasis. Fatty infiltration of the liver. Reviewed, Interpreted and Dictated by Sammy Mishra III, MD Transcribed by Georgia Baugh Authenticated and . [facility]
[2022-11-10 09:19] LABS: Basophils # 0.1 K/mm3 (0-0.2); Basophils % 0.8 % (0.1-2.0); Eosinophils % 0.4 % (0.1-12.0); Hematocrit 42.5 % (37.0-47.0); Hemoglobin 14.3 g/dL (12.2-16.2); Lymphocytes # 2.2 K/mm3 (0.7-4.5); Lymphocytes % 22.3 % (10-50); Mean Corpuscular HGB Conc 33.6 g/dL (31.8-35.4); Mean Corpuscular Hemoglobin 28.6 pg (27.0-31.2); Mean Corpuscular Volume 85.1 fl (81-99); Mean Platelet Volume 8.5 fl (7.4-10.4); Monocytes # 0.4 K/mm3 (0.1-1.0); Monocytes % 4.4 % (1.7-9.3); Neutrophils # 6.9 K/mm3 (1.8-7.8); Neutrophils % 72.1 % (37.0-80.0); Platelet Count 263 K/mm3 (142-424); Red Blood Count 4.99 M/mm3 (4.20-5.40); Red Cell Distribution Width 14.8 % (11.5-17.5); White Blood Count 9.6 K/mm3 (4.8-10.8)
[2022-11-10 09:58] LABS: Chloride 99 mmol/L (98-107); Potassium 4.4 mmoL/L (3.5-5.1); Sodium 134 mmol/L (136-145)
[2022-11-10 10:01] LABS: Alanine Aminotransferase 40 U/L (12-78); Albumin Level 4.6 g/dl (3.5-5.0); Albumin/Globulin Ratio 1.9 (1.1-1.8); Alkaline Phosphatase 82 U/L (38-126); Anion Gap 20.4 mEq/L (5-15); Aspartate Amino Transferase 49 U/L (14-36); Bilirubin,Total 1.3 mg/dl (0.2-1.3); Blood Urea Nitrogen 38 mg/dl (7-17); Calcium 10.2 mg/dl (8.4-10.2); Carbon Dioxide 19 mmol/L (22.0-30.0); Estimated Glomerular Filt Rate 72 ml/min (>60); GFR (African American) 88 ML/MIN (>60); Globulin 2.4 g/dL (1.3-3.2); Glucose 369 mg/dl (74-100)
[2022-11-15 22:59] LABS: Hep A Ab, IgM NEGATIVE; Hepatitis B Core Antibody IgM NEGATIVE; Hepatitis B Surface Antigen NEGATIVE; Hepatitis C Antibody <0.1
== END ==
PROVIDERS: PCP Physician Assistant; Visit Provider Physician Assistant
DX: R74.8 Abnormal levels of other serum enzymes (principal)
CPT/HCPCS: 36415; 76705; 80053; 80074; 85025

== ENCOUNTER → 2022-11-12 07:32 | Outpatient (CLI) | payer BC, SELFPAY ==
--- NOTE | 2022-11-12 | CA_ITS ---
APPROVED REPORT Exam: Pharmacologic Technologist: Lalitha Salcido Ht: 5 ft 6 in Wt: 245 lbs BSA: 2.18 m2 HR: 59 bpm BP: 127/68 mmHg Indications: Chest pain Medical History Medications: Lisinopril,,,,, Levothyroxine,,,,, Aspirin,,,,, Atenolol,,,,, Metformin,,,,, Vitamin C,,,,, Vitamin D3,,,,, Atorvastatin,,,,, HCTZ,,,,, Ropinirole,,,,, CloPIdogrel,,,,, Nitroglycerin,,,,, Stress Test Details Test: LEXISCAN HR Resting HR: 60 bpm Max Heart Rate (APMHR): 157.535979 bpm Max HR Achieved: 80 bpm Target HR (85% APMHR): 133.649979 bpm % of APMHR: 50.96 Recovery HR: 76 bpm BP Resting BP: 127.0/68.0 mmHg Max BP: 149.0/63.0 mmHg Recovery BP: 130.0/61.0 mmHg ECG Resting ECG: Sinus bradycardia, right axis deviation, low voltage QRS, cannot rule out old septal AL. Clinical Exercise duration: 04:03 min Highest Stage Achieved: Exercise capacity: 1.0 METs Stress ECG Conclusion Symptoms: Brief shortness of air, head discomfort. No chest pain. Arrhythmias/Ectopy: Moderately frequent isolated PVCs. ST-T Changes: No significant changes. Conclusion: Unremarkable Lexiscan stress. Myoview images reported separately. Electronically signed by : Cody Montesinos MD 11/12/2022 20:29:48
--- NOTE | 2022-11-12 07:32 | NM_ITS ---
APPROVED REPORT Exam: Nuclear Stress Test Indication: CAD, HTN, DM, HYPERLIPIDEMIA, FM HX, SOB ,SYNCOPE Patient Location: Outpatient Stress Tech: Lalitha Salcido [place] Tech:Kallie Saleh JAMESGreg RT (R)(N)(M) Ht: 5 ft 6 in Wt: 245 lbs Bra Size: 42DD HR: 59 bpm BP: 127/68 mmHg BSA: 2.18 m2 TID: 1.11 BMI: 39.5 History: CAD, HTN, DM, HYPERLIPIDEMIA, FM HX, SOB ,SYNCOPE Procedure: Patient received a 0.4 mg of intravenous Lexiscan, resting heart rate 59 bpm, resting blood pressure 127/68 mmHg, with Lexiscan maximum heart rate achived was 77 bpm which is Less than 85 % of the maximum predicted heart rate and blood pressure was 146/68 mmHg. With Lexiscan, patient denied any complaint of chest pain. Electrocardiogram Resting electrocardiogram shows sinus rhythm, with Lexiscan there is a 1.[address] segment depression noted from the baseline EKG. The EKG portion of the Lexiscan is nondiagnostic. Cardiac Stress and Resting SPECT Images: Cardiac Stress and Resting SPECT images were obtained using technetium 99m Myoview 31.8 mCi stress and 10.02 mCi at rest. Gated SPECT for analysis of segmental wall motion and calculation of the ejection fraction also done. Prone images were also obtained. Cardiac stress and this is speculation uniform myocardial activity without segmental perfusion abnormality, computer derived ejection fraction is 58% with no regional wall motion abnormality, right ventricle is normal size and contractility. Conclusion: 1. The EKG portion of the Lexiscan is nondiagnostic. 2. No scintigraphic evidence of reversible ischemia seen, computer derived ejection fraction is 58% with no regional wall motion abnormality, right ventricle is normal size and contractility. 3. Normal Lexiscan Myoview study. Electronically signed by : Cody Montesinos MD 11/12/2022 20:33:30
== END ==
PROVIDERS: PCP Physician Assistant; Visit Provider Nurse Practitioner Family
DX: R06.09 Other forms of dyspnea (principal); R07.89 Other chest pain; I25.10 Atherosclerotic heart disease of native coronary artery without angina pectoris; I10 Essential (primary) hypertension; K21.9 Gastro-esophageal reflux disease without esophagitis; E11.9 Type 2 diabetes mellitus without complications; E78.2 Mixed hyperlipidemia; I65.23 Occlusion and stenosis of bilateral carotid arteries; Z79.84 Long term (current) use of oral hypoglycemic drugs
CPT/HCPCS: 78452; 93017; A9502; J2785

== ENCOUNTER → 2023-05-04 14:42 | Outpatient (CLI) | payer BC, SELFPAY ==
[2023-05-04 13:18] LABS: Alanine Aminotransferase 53 U/L (12-78); Albumin Level 4.6 g/dl (3.5-5.0); Albumin/Globulin Ratio 1.8 (1.1-1.8); Alkaline Phosphatase 88 U/L (38-126); Aspartate Amino Transferase 63 U/L (14-36); Bilirubin,Total 1.4 mg/dl (0.2-1.3); Blood Urea Nitrogen 21 mg/dl (7-17); Calcium 9.5 mg/dl (8.4-10.2); Carbon Dioxide 26 mmol/L (22.0-30.0); Chloride 100 mmol/L (98-107); Chol/HDL Ratio 4.9 (1-3.5); Cholesterol 137 mg/dl (140-200); Estimated Glomerular Filt Rate 101 ml/min (>60); GFR (African American) 122 ML/MIN (>60); Globulin 2.6 g/dL (1.3-3.2); Glucose 218 mg/dl (74-100); HDL Cholesterol 28 mg/dl (40-60); Sodium 141 mmol/L (136-145); Total Protein,Serum 7.2 g/dl (6.3-8.2); Triglycerides 292 mg/dl (30-150); VLDL Cholesterol 58 mg/dL (0-40)
[2023-05-04 13:29] LABS: Direct LDL Cholesterol 67.59 mg/dL (100-129)
[2023-05-04 13:34] LABS: Basophils % 0.5 % (0.1-2.0)
[2023-05-04 13:49] LABS: Hemoglobin A1C 8.2 % (4.0-6.0); Thyroid Stimulating Hormone 0.99 uIU/mL (0.465-4.68)
[2023-05-04 14:10] LABS: Hematocrit 38.9 % (37.0-47.0); Mean Corpuscular HGB Conc 33.5 g/dL (31.8-35.4); Mean Corpuscular Volume 83.8 fl (81-99); Red Blood Count 4.64 M/mm3 (4.20-5.40); Red Cell Distribution Width 15.5 % (11.5-17.5); White Blood Count 7.3 K/mm3 (4.8-10.8)
[2023-05-04 14:11] LABS: Lymphocytes % 27.9 % (10-50); Mean Platelet Volume 8.1 fl (7.4-10.4); Neutrophils % 61.9 % (37.0-80.0); Platelet Count 177 K/mm3 (142-424)
[2023-05-04 14:12] LABS: Eosinophils # 0.2 K/mm3 (0.0-0.4); Eosinophils % 2.6 % (0.1-12.0); Lymphocytes # 2.1 K/mm3 (0.7-4.5); Monocytes # 0.5 K/mm3 (0.1-1.0); Monocytes % 7.1 % (1.7-9.3); Neutrophils # 4.5 K/mm3 (1.8-7.8)
[2023-05-04 14:22] LABS: Microalbumin/Creatinine Ratio 14.7
[2023-05-04 14:33] LABS: Creatinine,Urine Random 91 mg/dL (Not Estab.)
== END ==
PROVIDERS: PCP Physician Assistant; Visit Provider Physician Assistant
DX: E03.9 Hypothyroidism, unspecified (principal); I10 Essential (primary) hypertension; E11.9 Type 2 diabetes mellitus without complications; Z79.84 Long term (current) use of oral hypoglycemic drugs
CPT/HCPCS: 80053; 80061; 82043; 82570; 83036; 84443; 85025

== ENCOUNTER 2024-03-15 16:50 | Outpatient (CLI) | payer MEDICARE, SELFPAY ==
[2024-03-15 18:23] LABS: Basophils # 0.1 K/mm3 (0-0.2); Basophils % 0.8 % (0.1-2.0); Eosinophils # 0.2 K/mm3 (0.0-0.4); Eosinophils % 3.4 % (0.1-12.0); Hematocrit 38.4 % (37.0-47.0); Hemoglobin 12.6 g/dL (12.2-16.2); Lymphocytes # 1.9 K/mm3 (0.7-4.5); Lymphocytes % 29.1 % (10-50); Mean Corpuscular HGB Conc 32.8 g/dL (31.8-35.4); Mean Corpuscular Hemoglobin 29.5 pg (27.0-31.2); Mean Corpuscular Volume 89.9 fl (81-99); Mean Platelet Volume 10.2 fl (7.4-10.4); Monocytes # 0.4 K/mm3 (0.1-1.0); Monocytes % 6.3 % (1.7-9.3); Neutrophils % 60.4 % (37.0-80.0); Platelet Count 171 K/mm3 (142-424); Red Blood Count 4.27 M/mm3 (4.20-5.40); Red Cell Distribution Width 15.5 % (11.5-17.5); White Blood Count 6.7 K/mm3 (4.8-10.8)
[2024-03-15 19:18] LABS: Alanine Aminotransferase 59 U/L (12-78); Albumin Level 4.4 g/dl (3.5-5.0); Albumin/Globulin Ratio 1.8 (1.1-1.8); Alkaline Phosphatase 89 U/L (38-126); Anion Gap 17.1 mEq/L (5-15); Aspartate Amino Transferase 80 U/L (14-36); Bilirubin,Total 1.3 mg/dl (0.2-1.3); Blood Urea Nitrogen 29 mg/dl (7-17); Calcium 9.6 mg/dl (8.4-10.2); Carbon Dioxide 23 mmol/L (22.0-30.0); Chloride 107 mmol/L (98-107); Chol/HDL Ratio 6.6 (1-3.5); Cholesterol 151 mg/dl (140-200); Estimated Glomerular Filt Rate 63 ml/min (>60); GFR (African American) 76 ML/MIN (>60); Globulin 2.5 g/dL (1.3-3.2); Glucose 198 mg/dl (74-100); HDL Cholesterol 23 mg/dl (40-60); Potassium 4.1 mmoL/L (3.5-5.1); Sodium 143 mmol/L (136-145); Total Protein,Serum 6.9 g/dl (6.3-8.2); Triglycerides 315 mg/dl (30-150); VLDL Cholesterol 63 mg/dL (0-40)
[2024-03-15 19:32] LABS: Hemoglobin A1C 8.8 % (4.0-6.0)
[2024-03-15 19:36] LABS: 25-OH Vitamin D, Total 41.9 ng/mL (30-100)
[2024-03-15 19:49] LABS: Thyroid Stimulating Hormone 1.04 uIU/mL (0.465-4.68)
== END 2024-03-15 23:59 | disposition home or self-care (01) ==
LOC: LAB.DROPOF 03-16 16:51
PROVIDERS: PCP Physician Assistant; Visit Provider Physician Assistant
DX: I11.9 Hypertensive heart disease without heart failure (principal); I25.118 Atherosclerotic heart disease of native coronary artery with other forms of angina pectoris; E55.9 Vitamin D deficiency, unspecified; E11.9 Type 2 diabetes mellitus without complications; E03.9 Hypothyroidism, unspecified; Z68.38 Body mass index [BMI] 38.0-38.9, adult; Z79.84 Long term (current) use of oral hypoglycemic drugs; Z87.891 Personal history of nicotine dependence
CPT/HCPCS: 80053; 80061; 82306; 83036; 84443; 85025

== ENCOUNTER 2025-01-31 09:11 | Outpatient (CLI) | payer MEDICARE, SELFPAY ==
--- NOTE | 2025-01-31 09:16 | XR_ITS ---
FINAL REPORT TECHNIQUE: Bone densitometry calculations of the lumbar spine and left hip were obtained. CLINICAL HISTORY: SCREENING FINDINGS: Using L1-4, the bone mineral density of the spine is 1.445 g/cm2, corresponding to T-score of 3.6. Using the left hip, the bone mineral density of the femoral neck is 0.869 g/cm2, corresponding to a T-score of 0.2. Using the right hip, the bone mineral density of the femoral neck is 0.895 g/cm2, corresponding to a T-score of 0.4. NOTE: T-score: Standard deviation compared with peak bone mass of young adult mean. *Following the recommendations of the International Society of Bone densitometry, classification of hip BMD is based on the lower of two T-scores; total hip or femoral neck. IMPRESSION: Normal bone mineral density of the lumbar spine and both hips. FRAX was not reported because all of the T-scores are at or above -1.0. Reviewed, Interpreted and Dictated by Celine Lugo MD Transcribed by Ene Melchor Authenticated and [facility]
== END 2025-01-31 23:59 | disposition home or self-care (01) ==
LOC: RAD 09:11
PROVIDERS: PCP Physician Assistant; Visit Provider Physician Assistant
DX: Z78.0 Asymptomatic menopausal state (principal)
CPT/HCPCS: 77080

== ENCOUNTER 2025-02-21 08:49 | Outpatient (CLI) | payer MEDICARE, SELFPAY ==
--- NOTE | 2025-02-21 08:52 | XR_ITS ---
FINAL REPORT CLINICAL HISTORY: right knee pain..fall last year COMPARISON: None FINDINGS: AP, lateral and oblique views of the right knee were obtained. There is no prior exam for comparison. There is no acute osseous abnormality of the right knee. There is degenerative joint disease present, particularly involving the medial compartment. Vascular calcifications are noted. There are several rounded calcifications that may be either in a popliteal cyst or may be loose bodies. There is no joint effusion. IMPRESSION: Degenerative change, particularly involving the medial compartment. Several rounded posterior calcifications are identified that may either be in a popliteal cyst or may represent loose bodies. Reviewed, Interpreted and Dictated by Aliza Vasquez MD Transcribed by Kina Perkins Authenticated and [facility]
--- NOTE | 2025-02-21 08:52 | XR_ITS ---
FINAL REPORT CLINICAL HISTORY: left knee pain..fall last year on knee COMPARISON: None FINDINGS: AP, lateral and oblique views of the left knee were obtained. There is no prior exam for comparison. There is no acute osseous abnormality of the left knee. Degenerative joint disease is noted, most prominent in the medial compartment. A small joint effusion is present. IMPRESSION: No acute osseous abnormality of the left knee. Degenerative change, particularly in the medial compartment, with a small joint effusion. Reviewed, Interpreted and Dictated by Aliza Vasquez MD Transcribed by Kina Perkins Authenticated and [facility]
== END 2025-02-21 23:59 | disposition home or self-care (01) ==
LOC: RAD 08:50
PROVIDERS: PCP Physician Assistant; Visit Provider Physician Assistant
DX: M25.561 Pain in right knee (principal); M25.562 Pain in left knee
CPT/HCPCS: 73562

== ENCOUNTER 2025-04-04 07:27 | Outpatient (CLI) | payer MEDICARE, SELFPAY ==
--- OUTSIDE RECORDS SUMMARY | 2025-04-04 07:30 | XMS_ITS ---
Author Organization Unknown Medications Medication Instructions Effective Dates (start - stop) Status levothyroxine sodium 0.125 M G Oral Tablet 2477-19-91H24:00:00.000+00 :00 - Completed levothyroxine sodium 0.125 M G Oral Tablet 4938-43-64R40:00:00.000+00 :00 - Completed levothyroxine sodium 0.125 M G Oral Tablet 4734-76-96L81:00:00.000+00 :00 - Completed levothyroxine sodium 0.125 M G Oral Tablet 3921-97-29G12:00:00.000+00 :00 - Completed pantoprazole 40 MG Delayed R elease Oral Tablet 6733-83-45C80:00:00.000+00 :00 - Completed pantoprazole 40 MG Delayed R elease Oral Tablet 5878-16-69V19:00:00.000+00 :00 - Completed prednisone 20 MG Oral Tablet 01-11-07:00:00.000+00 :00 - Completed atorvastatin 80 MG Oral Tablet 699-11-66F77:00:00.000+00 :00 - Completed fluticasone propionate 0.05 MG/ACTUAT Metered Dose Nasal [place] 5566-97-86P18:00:00 .000+00 :00 - Completed semaglutide 7 MG Oral Tablet [Rybelsus] 1409-57-97V10:00:00.000+00 :00 - Completed fluticasone propionate 0.05 MG/ACTUAT Metered Dose Nasal [place] 6342-74-89Z28:00:00 .000+00 :00 - Completed tizanidine 4 MG Oral Tablet 2022:00:00.000+00 :00 - Completed semaglutide 7 MG Oral Tablet [Rybelsus] 8425-82-70B85:00:00.000+00 :00 - Completed semaglutide 3 MG Oral Tablet [Rybelsus] 8954-05-13A33:00:00.000+00 :00 - Completed tizanidine 4 MG Oral Tablet 2022:00:00.000+00 :00 - Completed semaglutide 7 MG Oral Tablet [Rybelsus] 6125-74-84K58:00:00.000+00 :00 - Completed tizanidine 4 MG Oral Tablet 2022:00:00.000+00 :00 - Completed atenolol 25 MG Oral Tablet :00:00.000+00 :00 - Completed lisinopril 40 MG Oral Tablet 01-11-21:00:00.000+00 :00 - Completed clopidogrel 75 MG Oral Tablet 20-09-07:00:00.000+00 :00 - Completed lisinopril 40 MG Oral Tablet 01-09-07:00:00.000+00 :00 - Completed 24 HR metformin hydrochlorid e 500 MG Extended Release Oral Tablet 8973-78-46I20:00:00.000+0 0 :00 - Completed atenolol 25 MG Oral Tablet :00:00.000+00 :00 - Completed atorvastatin 80 MG Oral Tablet 833-75-63X17:00:00.000+00 :00 - Completed clopidogrel 75 MG Oral Tablet 22-05-22:00:00.000+00 :00 - Completed clopidogrel 75 MG Oral Tablet 20-11-21:00:00.000+00 :00 - Completed 24 HR metformin hydrochlorid e 500 MG Extended Release Oral Tablet 5546-02-13B84:00:00.000+0 0 :00 - Completed lisinopril 40 MG Oral Tablet 02-02-21:00:00.000+00 :00 - Completed 24 HR glipizide 10 MG Extend ed Release Oral Tablet 5931-89-26P57:00:00.000+00 :00 - Completed clopidogrel 75 MG Oral Tablet 19-02-09:00:00.000+00 :00 - Completed atenolol 25 MG Oral Tablet :00:00.000+00 :00 - Completed 24 HR metformin hydrochlorid e 500 MG Extended Release Oral Tablet 3717-55-61F65:00:00.000+0 0 :00 - Completed {6 (azithromycin 250 MG Oral Tablet) } Pack [id number]:00:00.000+00 :00 - Completed atorvastatin 80 MG Oral Tablet 879-29-11D16:00:00.000+00 :00 - Completed atenolol 25 MG Oral Tablet :00:00.000+00 :00 - Completed lisinopril 40 MG Oral Tablet 01-31-08:00:00.000+00 :00 - Completed 24 HR glipizide 10 MG Extend ed Release Oral Tablet 0512-99-34E70:00:00.000+00 :00 - Completed 24 HR metformin hydrochlorid e 500 MG Extended Release Oral Tablet 2461-54-46Y70:00:00.000+0 0 :00 - Completed 24 HR glipizide 10 MG Extend ed Release Oral Tablet 0075-27-38B98:00:00.000+00 :00 - Completed hydrochlorothiazide 12.5 MG Oral Capsule 9061-17-04Y34:00:00.000+00 :00 - Completed latanoprost 0.05 MG/ML Ophth almic Solution 3786-45-46T79:00:00.000+00 :00 - Completed hydrochlorothiazide 12.5 MG Oral Capsule 1869-45-23M64:00:00.000+00 :00 - Completed latanoprost 0.05 MG/ML Ophth almic Solution 0165-50-79G18:00:00.000+00 :00 - Completed - 0530-07-88F53:00 :00.000+00 :00 - Completed latanoprost 0.05 MG/ML Ophth almic Solution 2163-06-59O32:00:00.000+00 :00 - Completed latanoprost 0.05 MG/ML Ophth almic Solution 5521-76-25H20:00:00.000+00 :00 - Completed hydrochlorothiazide 25 MG Or al Tablet 4640-82-25G19:00:00.000+00 :00 - Completed latanoprost 0.05 MG/ML Ophth almic Solution 3808-57-06R23:00:00.000+00 :00 - Completed ropinirole 0.25 MG Oral Tablet 758-48-40K75:00:00.000+00 :00 - Completed hydrochlorothiazide 25 MG Or al Tablet 6868-17-95P80:00:00.000+00 :00 - Completed - 6981-84-20W51:00 :00.000+00 :00 - Completed fluorouracil 50 MG/ML Topical Cream 2294-87-60B09:00:00.000+00 :00 - Completed celecoxib 200 MG Oral Capsule 22-05-05:00:00.000+00 :00 - Completed latanoprost 0.05 MG/ML Ophth almic Solution 6823-96-66U57:00:00.000+00 :00 - Completed - 2998-07-20U07:00 :00.000+00 :00 - Completed Patient Care team information Name Category Status Period Participants - - Proposed period not known -
--- NOTE | 2025-04-04 08:00 | CA_ITS ---
FINAL REPORT TECHNIQUE: Castro scale, color and spectral doppler images of the bilateral carotid arteries were obtained. CLINICAL HISTORY: ORESTES, Dizziness FINDINGS: Peak systolic velocity in the right internal carotid artery is 125 cm/sec. The internal carotid to common carotid artery ratio is 2.69. There is 50 to 69% carotid artery stenosis and calcified plaque formation at the bulb. The right vertebral artery is normal in direction. Peak systolic velocity in the left internal carotid artery is 128 cm/sec. The internal carotid to common carotid artery ratio is 2.59. There is 50 to 69% carotid artery stenosis and mild plaque formation at the bulb. The left vertebral artery is normal in direction. IMPRESSION: There is 50 to 69% carotid artery stenosis. Relatively low velocities with abnormal ratios bilaterally. Recommend CTA for further evaluation. Reviewed, Interpreted and Dictated by Aliza Vasquez MD Transcribed by Angela Shaw Authenticated and [facility]
== END 2025-04-04 23:59 | disposition home or self-care (01) ==
LOC: RT 07:28
PROVIDERS: PCP Physician Assistant; Visit Provider Nurse Practitioner Family
DX: I65.23 Occlusion and stenosis of bilateral carotid arteries (principal)
CPT/HCPCS: 93880

== ENCOUNTER 2025-05-03 08:01 | Outpatient (CLI) | payer MEDICARE, SELFPAY ==
--- OUTSIDE RECORDS SUMMARY | 2025-05-03 08:04 | XMS_ITS ---
Author Organization Unknown Medications Medication Instructions Effective Dates (start - stop) Status levothyroxine sodium 0.125 M G Oral Tablet 1266-12-88N15:00:00.000+00 :00 - Completed levothyroxine sodium 0.125 M G Oral Tablet 5010-65-73Z60:00:00.000+00 :00 - Completed levothyroxine sodium 0.125 M G Oral Tablet 7000-85-35Z27:00:00.000+00 :00 - Completed levothyroxine sodium 0.125 M G Oral Tablet 0325-08-46W93:00:00.000+00 :00 - Completed pantoprazole 40 MG Delayed R elease Oral Tablet 4308-86-91E27:00:00.000+00 :00 - Completed pantoprazole 40 MG Delayed R elease Oral Tablet 3214-26-02J94:00:00.000+00 :00 - Completed prednisone 20 MG Oral Tablet 01-11-07:00:00.000+00 :00 - Completed atorvastatin 80 MG Oral Tablet 223-22-72H55:00:00.000+00 :00 - Completed fluticasone propionate 0.05 MG/ACTUAT Metered Dose Nasal [place] 9630-48-76N49:00:00 .000+00 :00 - Completed semaglutide 7 MG Oral Tablet [Rybelsus] 9916-06-66E64:00:00.000+00 :00 - Completed fluticasone propionate 0.05 MG/ACTUAT Metered Dose Nasal [place] 4694-63-65Z80:00:00 .000+00 :00 - Completed tizanidine 4 MG Oral Tablet 2022:00:00.000+00 :00 - Completed semaglutide 7 MG Oral Tablet [Rybelsus] 5785-49-57L95:00:00.000+00 :00 - Completed semaglutide 3 MG Oral Tablet [Rybelsus] 1496-41-35G69:00:00.000+00 :00 - Completed tizanidine 4 MG Oral Tablet 2022:00:00.000+00 :00 - Completed semaglutide 7 MG Oral Tablet [Rybelsus] 0049-33-21H79:00:00.000+00 :00 - Completed tizanidine 4 MG Oral Tablet 2022:00:00.000+00 :00 - Completed atenolol 25 MG Oral Tablet :00:00.000+00 :00 - Completed lisinopril 40 MG Oral Tablet 01-11-21:00:00.000+00 :00 - Completed clopidogrel 75 MG Oral Tablet 20-09-07:00:00.000+00 :00 - Completed lisinopril 40 MG Oral Tablet 01-09-07:00:00.000+00 :00 - Completed 24 HR metformin hydrochlorid e 500 MG Extended Release Oral Tablet 9146-70-66D99:00:00.000+0 0 :00 - Completed atenolol 25 MG Oral Tablet :00:00.000+00 :00 - Completed atorvastatin 80 MG Oral Tablet [id number]:00:00.000+00 :00 - Completed clopidogrel 75 MG Oral Tablet 22-05-22:00:00.000+00 :00 - Completed clopidogrel 75 MG Oral Tablet 20-11-21:00:00.000+00 :00 - Completed 24 HR metformin hydrochlorid e 500 MG Extended Release Oral Tablet 7609-00-13K18:00:00.000+0 0 :00 - Completed lisinopril 40 MG Oral Tablet 02-02-21:00:00.000+00 :00 - Completed 24 HR glipizide 10 MG Extend ed Release Oral Tablet 1488-52-72R76:00:00.000+00 :00 - Completed clopidogrel 75 MG Oral Tablet 19-02-09:00:00.000+00 :00 - Completed atenolol 25 MG Oral Tablet :00:00.000+00 :00 - Completed 24 HR metformin hydrochlorid e 500 MG Extended Release Oral Tablet 5053-68-47Z94:00:00.000+0 0 :00 - Completed {6 (azithromycin 250 MG Oral Tablet) } Pack 2688-26-50E36:00:00.000+00 :00 - Completed atorvastatin 80 MG Oral Tablet 660-50-48G79:00:00.000+00 :00 - Completed atenolol 25 MG Oral Tablet :00:00.000+00 :00 - Completed lisinopril 40 MG Oral Tablet 01-31-08:00:00.000+00 :00 - Completed 24 HR glipizide 10 MG Extend ed Release Oral Tablet 3550-19-50B02:00:00.000+00 :00 - Completed 24 HR metformin hydrochlorid e 500 MG Extended Release Oral Tablet 8061-30-89A41:00:00.000+0 0 :00 - Completed 24 HR glipizide 10 MG Extend ed Release Oral Tablet 4937-61-75D30:00:00.000+00 :00 - Completed hydrochlorothiazide 12.5 MG Oral Capsule 0133-91-95G46:00:00.000+00 :00 - Completed latanoprost 0.05 MG/ML Ophth almic Solution 7529-48-95X79:00:00.000+00 :00 - Completed hydrochlorothiazide 12.5 MG Oral Capsule 9647-19-72F83:00:00.000+00 :00 - Completed latanoprost 0.05 MG/ML Ophth almic Solution 2722-40-59E90:00:00.000+00 :00 - Completed - 4644-74-44I52:00 :00.000+00 :00 - Completed latanoprost 0.05 MG/ML Ophth almic Solution 9791-45-32R95:00:00.000+00 :00 - Completed latanoprost 0.05 MG/ML Ophth almic Solution 5558-90-81I85:00:00.000+00 :00 - Completed hydrochlorothiazide 25 MG Or al Tablet 8034-80-69D49:00:00.000+00 :00 - Completed latanoprost 0.05 MG/ML Ophth almic Solution 7585-55-81T16:00:00.000+00 :00 - Completed ropinirole 0.25 MG Oral Tablet 612-92-06M59:00:00.000+00 :00 - Completed hydrochlorothiazide 25 MG Or al Tablet 9867-62-80J00:00:00.000+00 :00 - Completed - 6986-31-80U37:00 :00.000+00 :00 - Completed fluorouracil 50 MG/ML Topical Cream 0199-04-34A53:00:00.000+00 :00 - Completed celecoxib 200 MG Oral Capsule 22-05-05:00:00.000+00 :00 - Completed latanoprost 0.05 MG/ML Ophth almic Solution [id number]:00:00.000+00 :00 - Completed - 2407-29-88D03:00 :00.000+00 :00 - Completed Patient Care team information Name Category Status Period Participants - - Proposed period not known -
--- NOTE | 2025-05-03 08:45 | CT_ITS ---
FINAL REPORT TECHNIQUE: Thin-section axial CT with IV contrast supplemented with multi planar reconstruction under CT angiogram protocol was performed of the neck. This study was performed technique to keep radiation doses as low as reasonably achievable, (ALARA). NASCET criteria was utilized during interpretation. CLINICAL HISTORY: abn carotid u/s AXIALS SENT COMPARISON: Carotid Doppler, 04/04/2025, CTA of the neck, 04/02/2022 FINDINGS: Aortic arch: Arch shows no significant narrowing. Great vessel origins are widely patent. Right carotid: There is calcified plaque present in the right carotid bulb extending into the internal carotid artery, producing 50 to 60% diameter stenosis. The proximal right internal carotid artery is patent to the level of the skull base. Left carotid: There is calcified plaque present in the left carotid bulb producing approximately 50% diameter stenosis. The proximal left internal carotid artery is patent to the skull base. Vertebrals: No significant stenosis is present. There are bilateral hypodense thyroid nodules, subcentimeter, identified. IMPRESSION: 50 to 60% stenosis of the right carotid bulb and internal carotid artery. 50% stenosis of the left carotid bulb. Antegrade flow present in the vertebral arteries bilaterally. Reviewed, Interpreted and Dictated by Aliza Vasquez MD Transcribed by Kina Perkins Authenticated and [facility]
[2025-05-03 09:32] LABS: Blood Urea Nitrogen 23 mg/dl (7-17); Estimated Glomerular Filt Rate 55 ml/min (>60); GFR (African American) 67 ML/MIN (>60)
[2025-05-03] MEDS: IOPAMIDOL-370 (76%);100ML BOTTLE 85 ML IV (10:02)
[2025-05-03] MEDS: SODIUM CHLORIDE 0.9% 10ML SYR (RAD ONLY) 10 ML IV (10:02)
[2025-05-03] MEDS: 0.9 % SODIUM CHLORIDE 50 ML VIAL IV (10:02)
== END 2025-05-03 23:59 | disposition home or self-care (01) ==
LOC: RAD 08:02
PROVIDERS: PCP Physician Assistant; Visit Provider Nurse Practitioner Family
DX: I65.23 Occlusion and stenosis of bilateral carotid arteries (principal)
CPT/HCPCS: 36415; 70498; 82565; 84520; Q9967

== ENCOUNTER 2025-06-30 22:42 | Observation (INO) | payer MEDICARE, SELFPAY ==
[2025-06-30 22:41] VITALS: BP 142/59; PULSE 92; RESP 18; O2SAT 96; BMI 35.5
--- NOTE | 2025-06-30 23:04 | HMH.EDGENADL ---
Discharge Plan Disposition Patient Disposition: Admitted Condition: Fair Clinical Impressions Clinical Impression: Hypoglycemia, COVID-19, Wound of right foot, BHARAT (acute kidney injury) Discharge ED Provider: Cornelia Sexton General Adult HPI <Cornelia Sexton MD - Last Filed: 06/30/25 23:09> General Chief complaint: Hyper/Hypoglycemia Stated complaint: hypoglycemia Time Seen by Provider: 06/30/25 22:56 Mode of Arrival: EMS Source of Information: Patient and EMS Description of Symptoms (Recalled from ER Triage Doc. by RN): per ems pt was unresponsive upon arrival with a glucose of 43. 1 mg of glucagon was administered IM, GCS of 15 with a glucose of 167 after glucagon. Pt reports that she was covid positive at pcp today, she take multiple po diabetes medicine which she took around 0630 this morning, ignacio/egg/bun was consumed around 0900, yogurt at 2pm and then she went to lay down after that. History of Present Illness HPI narrative: Patient is a 65-year-old female presenting today after being altered with a glucose of 43. She states that she has had a wound of her right foot which is dramatically improved from the past and was actually going to her doctor's appointment to have a follow-up on that and states that it is much better however she been sick over the last few days with respiratory illness and had a test that was positive for COVID-19. Her doctor prescribed her Paxlovid and she went home and became altered and EMS was called she does not remember everything about that call but was told that her glucose was 43 she was given glucagon and her glucose responded and she is now feeling much better. She also takes glipizide Jardiance and metformin is not on any insulin. Related Data Home Medications ?Medication ?Instructions ?Recorded ?Confirmed aspirin 81 mg tablet,delayed 81 mg PO DAILY 06/30/19 07/01/25 release (Adult Low Dose Aspirin) ascorbic acid (vitamin C) 250 mg 250 mg PO DAILY 05/14/23 07/01/25 tablet cinnamon bark 500 mg capsule 500 mg PO DAILY 05/14/23 07/01/25 empagliflozin 25 mg tablet 25 mg PO DAILY 03/09/25 07/01/25 (Jardiance) glipizide 10 mg tablet, extended 10 mg PO BID 07/01/25 07/01/25 release 24 hr latanoprost 0.005 % eye drops 1 drp Eye-Both HS 07/01/25 07/01/25 levothyroxine 125 mcg tablet 125 mcg PO DAILY 07/01/25 07/01/25 loratadine 10 mg tablet 10 mg PO DAILY 07/01/25 07/01/25 metformin 500 mg tablet,extended 500 mg PO BID 07/01/25 07/01/25 release 24 hr mupirocin 2 % topical ointment 1 applic topical TID 07/01/25 07/01/25 semaglutide 14 mg tablet (Rybelsus) 14 mg PO DAILY 07/01/25 07/01/25 silver sulfadiazine 1 % topical 1 applic topical BID 07/01/25 07/01/25 cream Previous Rx's ?Medication ?Instructions ?Recorded alcohol swabs 1 pad topical DIRECTED #100 ea 05/13/22 lancets 28 gauge (Acti-Stu #100 ea 05/13/22 Lancets) blood-glucose meter (vendome 1699Touch ##1 06/09/22 Ultra2 Meter) blood sugar diagnostic (Blood #50 ea 11/19/22 Glucose Test strips) cholecalciferol (vitamin D3) 25 1,000 unit PO DAILY #90 caps 11/19/22 mcg (1,000 unit) capsule atorvastatin 80 mg tablet 80 mg PO DAILY #90 tabs 12/02/23 pantoprazole 40 mg tablet,delayed 40 mg PO DAILY #90 tabs 12/02/23 release isosorbide mononitrate 30 mg 30 mg PO DAILY #90 tabs 03/17/24 tablet,extended release 24 hr clopidogrel 75 mg tablet 75 mg PO DAILY #90 tabs 08/24/24 nitroglycerin 0.4 mg sublingual 0.4 mg sublingual Q5-15M PRN chest 03/09/25 tablet pain #30 tabs Allergies Allergy/AdvReac Type Severity Reaction Status Date / Time penicillin G Allergy Mild S-BLISTERING Verified 03/09/25 10:17 WELTS tizanidine AdvReac Intermediate Verified 03/09/25 10:17 [facility] <J Kulwant Sexton MD - Last Filed: 06/30/25 23:09> [facility] Disclaimer: The information contained in this section may have been updated after the patient was seen, as this information can be updated by other users. Medical History (Reviewed 07/01/25 @ : by Thanh Lobo MD) Abnormal carotid ultrasound Restless legs syndrome Knee pain Fibromuscular dysplasia of renal artery PAD (peripheral artery disease) Carotid artery stenosis Dyspnea History of gout History of stroke Diabetes mellitus Hyperlipemia Hypothyroidism Hypertension Social History (Reviewed 07/01/25 @ : by Thanh Lobo MD) Smoking Status: Former smoker tobacco type: cigarettes alcohol intake: never substance use type: denies use current occupational status: retired Travel in the last 8 weeks?: None Have you lived/traveled outside [place] in past 30 days?: No Contact w/someone who lives/traveled outside US past 30 days?: No Exposure to someone with infectious disease in past 14 days?: Yes Do you have a fever (greater than 100.4 F or 38 C)?: Yes Have you tested positive for COVID-19?: Yes Exposed to someone with COVID-19 in past 14 days?: No Do you have a sore throat?: No Do you have a cough?: No Do you have any weakness?: No Do you have any diarrhea?: No Are you experiencing any unusual bleeding?: No Do you have any muscle aches/pain?: No Do you have any abdominal pain?: No Are you experiencing loss of taste or smell?: No Other Medical History Have you received the Pneumonia Vaccine: No <Cornelia Sexton MD - Last Filed: 06/30/25 23:09> ROS Obtained: Yes All systems reviewed & no additional complaints except as documented Physical Exam <Cornelia Sexton MD - Last Filed: 06/30/25 23:09> General General appearance: alert and in no apparent distress Respiratory Respiratory exam: Present normal lung sounds bilaterally and respiratory distress Cardiovascular Cardiovascular exam: Present regular rate and normal rhythm Extremities Exam Extremities exam: Present other (Right foot there is a superficial scab on the dorsal aspect of the foot with some surrounding erythema the patient states is much better than recent past) Neurological Exam Neurological exam: Present alert and oriented X3 Medical Decision Making <Cornelia Sexton MD - Last Filed: 06/30/25 23:09> Medical Records Screening: Per USPSTF and CDC recommendations, given the prevalence of disease in our region, it is our hospital?s policy to screen for HIV and viral Hepatitis for all patients aged 18 and over and those with ongoing risk factors. Ned Inquiry Pt receiving controlled substance: No Vital Signs: 06/30/25 22:41 06/30/25 23:31 06/30/25 23:59 Temperature Temperature Source Pulse Rate 77 Pulse Rate [Left Radial] 92 H Respiratory Rate 18 Blood Pressure 112/71 Blood Pressure [Right Arm] 142/59 H Blood Pressure Mean 84 Blood Pressure Mean [Right Arm] 86 Blood Pressure Source Blood Pressure Position Blood Pressure Position [Right Arm] Sitting 02 Sat by Pulse Oximetry 96 100 Oxygen Delivery Method Room Air Room Air 07/01/25 00:22 Temperature 98 F Temperature Source Oral Pulse Rate 94 H Pulse Rate [Left Radial] Respiratory Rate 16 Blood Pressure 109/73 L Blood Pressure [Right Arm] Blood Pressure Mean Blood Pressure Mean [Right Arm] Blood Pressure Source Automatic Cuff Blood Pressure Position Sitting Blood Pressure Position [Right Arm] 02 Sat by Pulse Oximetry Oxygen Delivery Method Room Air Lab Data Lab Results 06/30/25 20:45: WBC 10.6, RBC 4.52, Hgb 13.0, Hct 38.1, MCV 84.3, MCH 28.8, MCHC 34.1, RDW 15.0, Plt Count 153, MPV 10.7 H, Neut % (Auto) 82.6 H, Lymph % (Auto) 6.5 L, Blackford % (Auto) 8.8, Eos % (Auto) 1.2, Baso % (Auto) 0.4, Neut # (Auto) 8.7 H, Lymph # (Auto) 0.7, Blackford # (Auto) 0.9, Eos # (Auto) 0.1, Baso # (Auto) 0.0, Sodium 130 L, Potassium 4.4, Chloride 103, Carbon Dioxide 15 L, Anion Gap 16.4 H, BUN 88 H, Creatinine 1.90 H, Estimated Creat Clear 46, Estimated GFR 26 L, Est GFR ( Amer) 32 L, Glucose 142 H, Calcium 10.5 H, Total Bilirubin 0.6, AST 73 H, ALT 53, Alkaline Phosphatase 67, Total Protein 7.7, Albumin 3.7, Globulin 4.0 H, Albumin/Globulin Ratio 0.9 L, HCV Ab SAMANTA w/Rflx PCR Qn Negative, HIV Ag/Ab Combo Qual Negative 06/30/25 20:45 06/30/25 20:45 Orders (Tests/Meds): ED MEDICATIONS Generic Name Dose Route Start Last Admin Trade Name Pretty PRN Reason Stop Dose Admin Acetaminophen 650 mg 06/30/25 23:55 Acetaminophen 325mg Tab PO 07/30/25 23:54 Q4HP PRN Fever or Mild Pain (1-3) Aspirin 81 mg 07/01/25 09:00 Aspirin Ec 81mg Tablet PO 07/31/25 08:59 DAILY ALFREDO Clopidogrel Bisulfate 75 mg 07/01/25 09:00 Clopidogrel 75mg Tab PO 07/31/25 08:59 DAILY ALFREDO Dextrose 50 ml 07/01/25 01:35 07/01/25 01:41 Dextrose 50% 50ml Syringe (Crash Cart) IVP 50 ml NEEDED PRN Administration glucose <60 Heparin Sodium (Porcine) 5,000 unit 07/01/25 09:00 Heparin Sodium 5,000 Unit/Ml Vial SUBCUT 07/31/25 08:59 TID ALFREDO Dextrose/Lactated Ringer's 1,000 mls @ 100 mls/hr 07/01/25 00:45 07/01/25 00:53 Dextrose 5% In Lactated Ringer's 1000ml IV 07/01/25 10:44 100 mls/hr .Q10H ALFREDO Administration Levothyroxine Sodium 125 mcg 07/01/25 09:00 Levothyroxine 125mcg (0.125mg) Tab PO 07/31/25 08:59 DAILY ALFREDO Ondansetron HCl 4 mg 06/30/25 23:55 Ondansetron 4mg/2ml Vial IV 07/30/25 23:54 Q8HP PRN Nausea Pantoprazole Sodium 40 mg 07/01/25 09:00 Pantoprazole 40mg Tablet PO 07/31/25 08:59 DAILY ALFREDO Sodium Chloride 10 ml 07/01/25 00:45 Sodium Chloride 0.9% 10ml Flush Syringe IV 07/31/25 00:44 NEEDED PRN Maintain IV Site Discontinued Medications Generic Name Dose Route Start Last Admin Trade Name Pretty PRN Reason Stop Dose Admin Lactated Ringer's 1,000 mls @ 999 mls/hr 06/30/25 23:42 06/30/25 23:45 Lactated Ringer's 1000 Ml Bag IV 07/01/25 00:42 999 mls/hr .Q1H1M ONE Administration ORDERS Category Date Time Status CBC w/Auto Diff [Complete Blood Count Auto Diff] Stat Lab 06/30/25 20:45 Completed CMP [Comprehensive Metabolic Panel] Stat Lab 06/30/25 20:45 Completed Complete Blood Count Auto Diff AMLAB Lab 07/01/25 06:00 Ordered Comprehensive Metabolic Panel AMLAB Lab 07/01/25 06:00 Ordered HIV Combo Stat Lab 06/30/25 20:45 Completed Hepatitis C Ab Qual. W/ RFX Stat Lab 06/30/25 20:45 Completed Magnesium AMLAB Lab 07/01/25 06:00 Ordered Medical Decision Narrative: Patient is a 65-year-old female on multiple oral hypoglycemic agents including glipizide Jardiance and metformin presenting today with profound hypoglycemia requiring assistance EMS was called her glucose was in the 40s and she was administered glucagon. It has normalized since that time and she has a normal exam at this point. Her right foot seems to be improving but that was the reason she was at her doctor's office today she was also diagnosed with COVID which could be what exacerbated her hyperglycemia today. Given the fact that these are very long-acting medications suggest that she will require a period of observation in the hospital to ensure that her glucose remained stable. <Nathaniel Newton MD - Last Filed: 07/01/25 03:55> Vital Signs: 06/30/25 22:41 06/30/25 23:31 06/30/25 23:59 Temperature Temperature Source Pulse Rate 77 Pulse Rate [Left Radial] 92 H Respiratory Rate 18 Blood Pressure 112/71 Blood Pressure [Right Arm] 142/59 H Blood Pressure Mean 84 Blood Pressure Mean [Right Arm] 86 Blood Pressure Source Blood Pressure Position Blood Pressure Position [Right Arm] Sitting 02 Sat by Pulse Oximetry 96 100 Oxygen Delivery Method Room Air Room Air 07/01/25 00:22 Temperature 98 F Temperature Source Oral Pulse Rate 94 H Pulse Rate [Left Radial] Respiratory Rate 16 Blood Pressure 109/73 L Blood Pressure [Right Arm] Blood Pressure Mean Blood Pressure Mean [Right Arm] Blood Pressure Source Automatic Cuff Blood Pressure Position Sitting Blood Pressure Position [Right Arm] 02 Sat by Pulse Oximetry Oxygen Delivery Method Room Air Lab Data Lab Results 06/30/25 20:45: WBC 10.6, RBC 4.52, Hgb 13.0, Hct 38.1, MCV 84.3, MCH 28.8, MCHC 34.1, RDW 15.0, Plt Count 153, MPV 10.7 H, Neut % (Auto) 82.6 H, Lymph % (Auto) 6.5 L, Blackford % (Auto) 8.8, Eos % (Auto) 1.2, Baso % (Auto) 0.4, Neut # (Auto) 8.7 H, Lymph # (Auto) 0.7, [place]ford # (Auto) 0.9, Eos # (Auto) 0.1, Baso # (Auto) 0.0, Sodium 130 L, Potassium 4.4, Chloride 103, Carbon Dioxide 15 L, Anion Gap 16.4 H, BUN 88 H, Creatinine 1.90 H, Estimated Creat Clear 46, Estimated GFR 26 L, Est GFR ( Amer) 32 L, Glucose 142 H, Calcium 10.5 H, Total Bilirubin 0.6, AST 73 H, ALT 53, Alkaline Phosphatase 67, Total Protein 7.7, Albumin 3.7, Globulin 4.0 H, Albumin/Globulin Ratio 0.9 L, HCV Ab SAMANTA w/Rflx PCR Qn Negative, HIV Ag/Ab Combo Qual Negative Orders (Tests/Meds): ED MEDICATIONS Generic Name Dose Route Start Last Admin Trade Name Freq PRN Reason Stop Dose Admin Acetaminophen 650 mg 06/30/25 23:55 Acetaminophen 325mg Tab PO 07/30/25 23:54 Q4HP PRN Fever or Mild Pain (1-3) Aspirin 81 mg 07/01/25 09:00 Aspirin Ec 81mg Tablet PO 07/31/25 08:59 DAILY ALFREDO Clopidogrel Bisulfate 75 mg 07/01/25 09:00 Clopidogrel 75mg Tab PO 07/31/25 08:59 DAILY ALFREDO Dextrose 50 ml 07/01/25 01:35 07/01/25 01:41 Dextrose 50% 50ml Syringe (Crash Cart) IVP 50 ml NEEDED PRN Administration glucose <60 Heparin Sodium (Porcine) 5,000 unit 07/01/25 09:00 Heparin Sodium 5,000 Unit/Ml Vial SUBCUT 07/31/25 08:59 TID ALFREDO Dextrose/Lactated Ringer's 1,000 mls @ 100 mls/hr 07/01/25 00:45 07/01/25 00:53 Dextrose 5% In Lactated Ringer's 1000ml IV 07/01/25 10:44 100 mls/hr .Q10H ALFREDO Administration Levothyroxine Sodium 125 mcg 07/01/25 09:00 Levothyroxine 125mcg (0.125mg) Tab PO 07/31/25 08:59 DAILY ALFREDO Ondansetron HCl 4 mg 06/30/25 23:55 Ondansetron 4mg/2ml Vial IV 07/30/25 23:54 Q8HP PRN Nausea Pantoprazole Sodium 40 mg 07/01/25 09:00 Pantoprazole 40mg Tablet PO 07/31/25 08:59 DAILY ALFREDO Sodium Chloride 10 ml 07/01/25 00:45 Sodium Chloride 0.9% 10ml Flush Syringe IV 07/31/25 00:44 NEEDED PRN Maintain IV Site Discontinued Medications Generic Name Dose Route Start Last Admin Trade Name Freq PRN Reason Stop Dose Admin Lactated Ringer's 1,000 mls @ 999 mls/hr 06/30/25 23:42 06/30/25 23:45 Lactated Ringer's 1000 Ml Bag IV 07/01/25 00:42 999 mls/hr .Q1H1M ONE Administration ORDERS Category Date Time Status CBC w/Auto Diff [Complete Blood Count Auto Diff] Stat Lab 06/30/25 20:45 Completed CMP [Comprehensive Metabolic Panel] Stat Lab 06/30/25 20:45 Completed Complete Blood Count Auto Diff AMLAB Lab 07/01/25 06:00 Ordered Comprehensive Metabolic Panel AMLAB Lab 07/01/25 06:00 Ordered HIV Combo Stat Lab 06/30/25 20:45 Completed Hepatitis C Ab Qual. W/ RFX Stat Lab 06/30/25 20:45 Completed Magnesium AMLAB Lab 07/01/25 06:00 Ordered Medical Decision Narrative: Patient is a 65-year-old female on multiple oral hypoglycemic agents including glipizide Jardiance and metformin presenting today with profound hypoglycemia requiring assistance EMS was called her glucose was in the 40s and she was administered glucagon. It has normalized since that time and she has a normal exam at this point. Her right foot seems to be improving but that was the reason she was at her doctor's office today she was also diagnosed with COVID which could be what exacerbated her hyperglycemia today. Given the fact that these are very long-acting medications suggest that she will require a period of observation in the hospital to ensure that her glucose remained stable. Newton: Upon assumption of care patient is stable, her blood glucose on arrival to the ER was in the 160s. She states she feels significantly better. On exam she is alert and oriented, lungs clear bilaterally saturating well on room air. I agree with the assessment and plan from Dr. Sexton. Labs reviewed by me demonstrate no leukocytosis or anemia, CMP with significant prerenal azotemia and BHARAT creatinine now 1.9 up from 1.0 previously. Patient is receiving IV fluids. She states she is still making urine. Repeat fingerstick blood glucose 91, this is a significant decrease since her arrival in the ER over a short amount of time. She is drinking orange juice to ensure no further drop. I am concerned in the setting of her use of sulfonylureas, COVID infection, and use of Paxlovid that all of these things are likely interacting causing her to have more unstable blood sugars than normal and that patient requires admission for continued glucose monitoring and management as well as treatment of BHARAT. Patient is agreeable to this plan. I discussed this case at length with the hospitalist, Dr. Lobo. He agrees that patient requires continued inpatient management and patient was graciously accepted for admission and admitted in stable condition. Critical Care <Cornelia Sexton MD - Last Filed: 06/30/25 23:09> Critical Care Time Critical Care Time: Yes Attestation: On 06/30/25, the high probability of a clinically significant, sudden or life threatening deterioration of the following system(s) required my full and direct attention, intervention and personal management. The time I documented below is in addition to time spent performing reported procedures but includes the following listed in this critical care notation. Total Time Total Critical Care Time: 35
[2025-06-30 23:11] LABS: Hematocrit 38.1 % (37.0-47.0); Hemoglobin 13.0 g/dL (12.2-16.2); Immature Granulocytes % 0.5 %; Mean Corpuscular HGB Conc 34.1 g/dL (31.8-35.4); Mean Corpuscular Hemoglobin 28.8 pg (27.0-31.2); Mean Corpuscular Volume 84.3 fl (81-99); Nucleated Red Blood Cells % 0 %; Platelet Count 153 K/mm3 (142-424); Red Blood Count 4.52 M/mm3 (4.20-5.40); Red Cell Distribution Width-SD 46.1 fL; White Blood Count 10.6 K/mm3 (4.8-10.8)
[2025-06-30 23:23] LABS: Albumin Level 3.7 g/dl (3.5-5.0); Chloride 103 mmol/L (98-107); Potassium 4.4 mmoL/L (3.5-5.1); Sodium 130 mmol/L (136-145)
[2025-06-30 23:25] LABS: Creatinine Clearance Estimated 46 mL/min (50-200); Creatinine,Serum 1.90 mg/dl (0.52-1.04); Estimated Glomerular Filt Rate 26 ml/min (>60); GFR (African American) 32 ML/MIN (>60)
[2025-06-30 23:26] LABS: Alanine Aminotransferase 53 U/L (12-78); Albumin/Globulin Ratio 0.9 (1.1-1.8); Alkaline Phosphatase 67 U/L (38-126); Anion Gap 16.4 mEq/L (5-15); Aspartate Amino Transferase 73 U/L (14-36); Bilirubin,Total 0.6 mg/dl (0.2-1.3); Calcium 10.5 mg/dl (8.4-10.2); Carbon Dioxide 15 mmol/L (22.0-30.0); Globulin 4.0 g/dL (1.3-3.2); Glucose 142 mg/dl (74-100); Total Protein,Serum 7.7 g/dl (6.3-8.2)
[2025-06-30 23:30] LABS: Blood Urea Nitrogen 88 mg/dl (7-17)
[2025-06-30 23:31] VITALS: BP 112/71; PULSE 77; O2SAT 100
--- NOTE | 2025-06-30 23:31 | PC.NURSE ---
critical lab BUN 88
[2025-06-30] MEDS: LACTATED RINGERS 1000ML 1,000 ML 999 ML IV (23:45)
--- NOTE | 2025-06-30 23:57 | P.HP_ITS ---
History of Present Illness *Admission Date: 06/30/25 *Reason for visit:: COVID-positive, weakness, low blood sugar *History of present illness: Ms. Mercado is a 65-year-old female with diabetes, hypertension, hypothyroid, CAD, PAD, obesity. She presented to her PCP today due to concern of weakness since Thursday. Was found to be positive for COVID. Her primary care provider had her discontinue her blood pressure medication. Took her normal diabetes meds at home this morning. [place] weak. EMS was called patient was found to have glucose of 43. Received 1 mg of glucagon IM with improvement in glucose to 167. Arrival to the ED, her glucose was continuing to drop. In light of admin istration of p.o. dextrose and continuing to have drop in glucose, medicine was consulted for admission and further management. Further workup found to have significant BHARAT with BUN 88, creatinine 1.9. Patient stable on room air. Afebrile. White count normal at 10.6. On arrival to the floor, patient states she feels cold but does not have a beckie fever. Is in mild distress because of chills but stable on room air. Alert and oriented x 4. No nausea or vomiting. No chest pain. No shortness of breath. Just feels significantly weak. had similar symptoms preceding hers.. [facility] Disclaimer: The information contained in this section may have been updated after the patient was seen, as this information can be updated by other users. Medical History Abnormal carotid ultrasound Restless legs syndrome Knee pain Fibromuscular dysplasia of renal artery PAD (peripheral artery disease) Carotid artery stenosis Dyspnea History of gout History of stroke Diabetes mellitus Hyperlipemia Hypothyroidism Hypertension Social History Smoking Status: Former smoker tobacco type: cigarettes alcohol intake: never substance use type: denies use current occupational status: retired Travel in the last 8 weeks?: None Have you lived/traveled outside US in past 30 days?: No Contact w/someone who lives/traveled outside US past 30 days?: No Exposure to someone with infectious disease in past 14 days?: Yes Do you have a fever (greater than 100.4 F or 38 C)?: Yes Have you tested positive for COVID-19?: Yes Exposed to someone with COVID-19 in past 14 days?: No Do you have a sore throat?: No Do you have a cough?: No Do you have any weakness?: No Do you have any diarrhea?: No Are you experiencing any unusual bleeding?: No Do you have any muscle aches/pain?: No Do you have any abdominal pain?: No Are you experiencing loss of taste or smell?: No Other Medical History Have you received the Pneumonia Vaccine: No Review of Systems Review of Systems Review of systems (narrative): 14 point review of systems performed, pertinent positives and negatives as per HPI Meds Home Medications and Allergies Home Medications ?Medication ?Instructions ?Recorded ?Confirmed ?Type aspirin 81 mg tablet,delayed 81 mg PO DAILY 06/30/19 0 07/01/25 History release (Adult Low Dose Aspirin) alcohol swabs 1 pad topical DIRECTED #1 00 ea 05/13/22 07/01/25 Rx lancets 28 gauge (Acti-Stu #100 ea 05/13/22 02/21/25 Rx Lancets) blood-glucose meter (Envestnetuch ##1 06/09/22 02/21/25 Rx Ultra2 Meter) blood sugar diagnostic (Blood #50 ea 11/19/22 02/21/25 Rx Glucose Test strips) cholecalciferol (vitamin D3) 25 1,000 unit PO DAILY #9 0 caps 11/19/22 07/01/25 Rx mcg (1,000 unit) capsule ascorbic acid (vitamin C) 250 mg 250 mg PO DAILY 05/1407/01/25 History tablet cinnamon bark 500 mg capsule 500 mg PO DAILY 05/14/23 07/01/25 History atorvastatin 80 mg tablet 80 mg PO DAILY #90 tabs 01/0 02/2007/01/25 Rx pantoprazole 40 mg tablet,delayed 40 mg PO DAILY #90 t abs 12/02/23 07/01/25 Rx release isosorbide mononitrate 30 mg 30 mg PO DAILY #90 tabs 0 03/17/24 07/01/25 Rx tablet,extended release 24 hr clopidogrel 75 mg tablet 75 mg PO DAILY #90 tabs 09/2 04/2207/01/25 Rx empagliflozin 25 mg tablet 25 mg PO DAILY 03/09/2501/24 History (Jardiance) nitroglycerin 0.4 mg sublingual 0.4 mg sublingual Q5-1 5M PRN chest 03/09/25 07/01/25 Rx tablet pain #30 tabs glipizide 10 mg tablet, extended 10 mg PO BID 07/01/25 07/01/25 History release 24 hr latanoprost 0.005 % eye drops 1 drp Eye-Both HS 07/01/25 History levothyroxine 125 mcg tablet 125 mcg PO DAILY 07/01/25 07/01/25 History loratadine 10 mg tablet 10 mg PO DAILY 07/01/25/01/24 History metformin 500 mg tablet,extended 500 mg PO BID 5 07/01/25 History release 24 hr mupirocin 2 % topical ointment 1 applic topical TID 07/01/25 History semaglutide 14 mg tablet (Rybelsus) 14 mg PO DAILY 01/2407/01/25 History silver sulfadiazine 1 % topical 1 applic topical BID 0 07/01/25 07/01/25 History cream New Prescriptions to Start Prescriptions: Allergies Allergy/AdvReac Type Severity Reaction Status Date / Time penicillin G Allergy Mild S-BLISTERING Verified 03/09/25 10:17 WELTS tizanidine AdvReac Intermediate Verified 03/09/25 10:17 Exam Data for Last 24 hours Vital signs and Labs for Last 24 Hours: Pulse Resp BP Pulse Ox O2 Del Method 92 H 18 142/59 H 96 Room Air 06/30/25 22:41 06/30/25 22:41 06/30/25 22:41 06/30/25 22:41 06/30/25 22:41 Laboratory Results - last 24 hr 06/30/25 20:45: WBC 10.6, RBC 4.52, Hgb 13.0, Hct 38.1, MCV 84.3, MCH 28.8, MCHC 34.1, RDW 15.0, Plt Count 153, MPV 10.7 H, Neut % (Auto) 82.6 H, Lymph % (Auto) 6.5 L, [place] % (Auto) 8.8, Eos % (Auto) 1.2, Baso % (Auto) 0.4, Neut # (Auto) 8.7 H, Lymph # (Auto) 0.7, [place] # (Auto) 0.9, Eos # (Auto) 0.1, Baso # (Auto) 0.0, Sodium 130 L, Potassium 4.4, Chloride 103, Carbon Dioxide 15 L, Anion Gap 16.4 H , BUN 88 H, Creatinine 1.90 H, Estimated Creat Clear 46, Estimated GFR 26 L, Est GFR ( Amer) 32 L, Glucose 142 H, Calcium 10.5 H, Total Bilirubin 0.6, AST 73 H, ALT 53, Alkaline Phosphatase 67, Total Protein 7.7, Albumin 3.7, Globulin 4.0 H, Albumin/Globulin Ratio 0.9 L I & O for Last 24 hours: Intake & Output 06/27/25 06/28/25 06/29/25 06/30/25 23:59 23:59 23:59 23:59 Weight 99.79 kg Constitutional Constitutional: mild distress, obese, chronically ill appearing and cooperative *Routine HEENT Exam Head: Present normocephalic Eye: Present EOMI and PERRL ENT: Present mucous membranes moist *Routine Neck Exam Neck: Present supple; Absent lymphadenopathy *Routine Respiratory Exam Respiratory: Present CTA bilaterally; Absent rhonchi, wheezes or crackles *Routine Cardiovascular Exam Cardiovascular: Present RRR *Routine Abdominal Exam Abdominal: Present soft and normoactive bowel sounds; Absent tenderness *Routine Rectal Exam Rectal:: deferred *Routine Genitalia Exam Genitalia:: deferred *Routine Extremities Exam Extremities: Absent cyanosis, clubbing or edema *Routine Skin Exam Skin: Present intact and warm; Absent rash *Routine Neurological Exam Neurological: Present alert, oriented X3 and moving all extremities; Absent altered mental status Assessment and Plan *Assessment and plan (1) BHARAT (acute kidney injury): Status: Acute Category: Medical Code(s): N17.9 - Acute kidney failure, unspecified (2) COVID-19: Status: Acute Category: Medical Code(s): U07.1 - COVID-19 (3) Hypoglycemia secondary to sulfonylurea: Status: Acute Category: Medical Code(s): T38.3X1A - Poisoning by insulin and oral hypoglycemic [antidiabetic] drugs, accidental (unintentional), initial encounter; E16.0 - Drug-induced hypoglycemia without coma (4) CAD (coronary artery disease): Status: Chronic Qualifiers: Associated angina: with other forms of angina Coronary Disease- Associated Artery/Lesion type: [place] artery [place] vs. 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 insulin use: without adjunct faculty for medical terminology use Diabetes mellitus type: type 2 Qualified Code(s): E11.9 - Type 2 diabetes mellitus without complications Category: Medical Code(s): E11.9 - Type 2 diabetes mellitus without complications (7) Hypothyroidism: Status: Chronic Qualifiers: Hypothyroidism type: unspecified Qualified Code(s): E03.9 - H ypothyroidism, unspecified Category: Medical Code(s): E03.9 - Hypothyroidism, unspecified (8) Hypertension: Status: Chronic Qualifiers: Hypertension type: essential hypertension Qualified Code(s): I10 - Essential (primary) hypertension Category: Medical Code(s): I10 - Essential (primary) hypertension (9) Hyperlipemia: Status: Chronic Qualifiers: Hyperlipidemia type: mixed hyperlipidemia Qualified Code(s): E78.2 - Mixed hyperlipidemia Category: Medical Code(s): E78.5 - Hyperlipidemia, unspecified (10) Obesity (BMI 30-39.9): Status: Chronic Category: Medical Code(s): E66.9 - Obesity, unspecified Plan 65-year-old with multiple comorbidities who was diagnosed with COVID today. Has been weak for a few days. Found to be hypoglycemic with an BHARAT on presentation. Discussed case with ER physician, request admission for further management of her persistent hypoglycemia and need for fluid resuscitation due to her BHARAT. I decided to admit for further treatment including IV fluids to maintain normoglycemic state and serial labs to monitor improvement in kidney function. Problems addressed as follows: COVID-19 BHARAT - Creatinine elevated 1.9, BUN 88. Consistent with prerenal state. Holding home blood pressure medications including empagliflozin, isosorbide, atenolol, lisinopril. - Patient initiated on Paxlovid as an outpatient. Will hold at this time as she is stable on room air. White count normal at 10.6. No acute respiratory distress - Initiated on D5 LR at 100 cc an hour for gentle hydration. Received a liter of LR in the ED. Repeat CBC, CMP, magnesium ordered for the morning. Monitor for improvement in kidney function with rehydration - Sodium 130, potassium 4.4. - Currently on room air, monitor for oxygen needs. Goal sats greater 90% - Hypoglycemia secondary to sulfonylurea Type 2 diabetes - Holding Rybelsus, metformin, glipizide, empagliflozin. - Monitor glucose every hour until glucose stable or trending up. Initiated on D5 LR as above at 100 cc an hour - Transition to fingersticks ACHS once glucose level is stable - Regular diet - A1C pending. Last A1c a year ago was 8.8. Hypothyroid: Continue levothyroxine 125 mcg daily. TSH ordered for the morning. Historically well-controlled per review of chart CAD/PE 80: Continue aspirin 81 mg daily and Plavix 75 mg daily GERD: Continue pantoprazole 40 mg daily Full code Regular diet Heparin subcu 3 times daily
[2025-07-01] VITALS (7 sets, daily range): BP systolic 91–144; BP diastolic 44–75; PULSE 86–96; RESP 16–18; TEMP 36.6–37.1; O2SAT 94–98; BMI 35.6
[2025-07-01 00:08] LABS: Hepatitis C Ab Qual. W/ RFX NEGATIVE (Negative)
--- NOTE | 2025-07-01 00:08 | PC.NURSE ---
reprot given to [facility]
--- NOTE | 2025-07-01 00:23 | PC.NURSE ---
Patient arrived to floor via wheelchair from ED at 00:22.
[2025-07-01] MEDS: DEXTROSE 5%-LACTATED RINGERS 1,000 ML 100 ML IV (00:53)
[2025-07-01 00:54] LABS: POC Glucose,Bedside 74 (70-110)
--- NOTE | 2025-07-01 01:19 | PC.NURSE ---
Patient states primary care provider instructed her to hold atenolol 25 mg, hydrochlorothiazide 25mg, and lisinopril 40 mg for 1 week due to hypotension.
[2025-07-01 01:37] LABS: POC Glucose,Bedside 59 (70-110)
[2025-07-01] MEDS: DEXTROSE 50% 50ML SYRINGE (CRASH CART) 50 ML IVP ×2 (01:41→04:55)
[2025-07-01 02:40] LABS: POC Glucose,Bedside 129 (70-110)
[2025-07-01 03:43] LABS: POC Glucose,Bedside 83 (70-110)
--- NOTE | 2025-07-01 04:24 | PC.NURSE ---
Addendum entered by Tiana Adrian RN 07/01/25 04:41: Pt does have a small wound on the top of her rt foot, she reported as healing from its previous state. Original Note: Pt A&O x4. Pt on RA. Pt on Droplet and Airborne Precautions due to COVID. Pt lung sounds diminished. Pt blood glucose closely monitored. Pt's blood glucose goal is to maintain a normal level w/o dropping. Pt on D5-LR @100ml/hr. Pt medicated per JAN. Pt not voicing any concerns as of now. Pt resting w/ call light in reach. Family at bedside. Plan of care ongoing.
[2025-07-01 04:59] LABS: POC Glucose,Bedside 53 (70-110)
[2025-07-01 06:04] LABS: POC Glucose,Bedside 117 (70-110)
[2025-07-01 06:56] LABS: POC Glucose,Bedside 73 (70-110)
[2025-07-01 07:13] LABS: Hematocrit 34.3 % (37.0-47.0); Immature Granulocytes % 0.7 %; Mean Corpuscular HGB Conc 32.7 g/dL (31.8-35.4); Mean Corpuscular Hemoglobin 27.5 pg (27.0-31.2); Mean Corpuscular Volume 84.3 fl (81-99); Nucleated Red Blood Cells % 0 %; Platelet Count 140 K/mm3 (142-424); Red Blood Count 4.07 M/mm3 (4.20-5.40); Red Cell Distribution Width-SD 45.4 fL; White Blood Count 5.5 K/mm3 (4.8-10.8)
[2025-07-01 07:24] LABS: Chloride 106 mmol/L (98-107); Sodium 116 mmol/L (136-145)
[2025-07-01 07:25] LABS: Potassium 4.4 mmoL/L (3.5-5.1)
[2025-07-01 07:27] LABS: Alanine Aminotransferase 45 U/L (12-78); Anion Gap -1.6 mEq/L (5-15); Aspartate Amino Transferase 61 U/L (14-36); Blood Urea Nitrogen 75 mg/dl (7-17); Calcium 10.0 mg/dl (8.4-10.2); Carbon Dioxide 16 mmol/L (22.0-30.0); Creatinine Clearance Estimated 49 mL/min (50-200); Creatinine,Serum 1.80 mg/dl (0.52-1.04); Estimated Glomerular Filt Rate 28 ml/min (>60); GFR (African American) 34 ML/MIN (>60); Glucose 78 mg/dl (74-100); Total Protein,Serum 6.4 g/dl (6.3-8.2)
[2025-07-01 07:28] LABS: Alkaline Phosphatase 73 U/L (38-126); Bilirubin,Total 0.7 mg/dl (0.2-1.3); Magnesium 1.8 mg/dl (1.6-2.3)
[2025-07-01 07:47] LABS: Hemoglobin 11.1 g/dL (12.2-16.2)
[2025-07-01 07:59] LABS: Chloride 107 mmol/L (98-107)
[2025-07-01 08:00] LABS: Potassium 4.6 mmoL/L (3.5-5.1); Sodium 131 mmol/L (136-145)
[2025-07-01 08:02] LABS: Blood Urea Nitrogen 69 mg/dl (7-17); Creatinine Clearance Estimated 52 mL/min (50-200); Creatinine,Serum 1.70 mg/dl (0.52-1.04); Estimated Glomerular Filt Rate 30 ml/min (>60); GFR (African American) 36 ML/MIN (>60)
[2025-07-01 08:03] LABS: Anion Gap 13.6 mEq/L (5-15); Calcium 10.2 mg/dl (8.4-10.2); Carbon Dioxide 15 mmol/L (22.0-30.0); Glucose 82 mg/dl (74-100)
[2025-07-01 08:28] LABS: POC Glucose,Bedside 91 (70-110)
[2025-07-01 08:35] LABS: Thyroid Stimulating Hormone 0.15 uIU/mL (0.465-4.68)
[2025-07-01 09:08] LABS: Albumin Level 3.1 g/dl (3.5-5.0); Albumin/Globulin Ratio 0.9 (1.1-1.8); Globulin 3.3 g/dL (1.3-3.2)
[2025-07-01] MEDS: LEVOTHYROXINE 125MCG (0.125MG) TAB 125 MCG PO (09:21)
[2025-07-01] MEDS: PANTOPRAZOLE 40MG TABLET 40 MG PO (09:21)
[2025-07-01] MEDS: ASPIRIN EC 81MG TABLET 81 MG PO (09:21)
[2025-07-01] MEDS: HEPARIN SODIUM 5,000 UNIT/ML VIAL 5000 UNIT SUBCUT ×3 (09:21→20:34)
[2025-07-01] MEDS: CLOPIDOGREL 75MG TAB 75 MG PO (09:21)
[2025-07-01 09:22] LABS: Hemoglobin A1C 7.7 % (4.0-6.0)
[2025-07-01 09:35] LABS: POC Glucose,Bedside 78 (70-110)
--- NOTE | 2025-07-01 11:12 | HMH.PHAINT1 ---
Pharmacy Intervention Comments: MEDICATION RECONCILIATION COMPLETE USING EXTERNAL PHARMACY FILL HISTORY AND RECENT CARDIOLOGY OFFICE VISIT NOTE.
[2025-07-01 13:01] LABS: POC Glucose,Bedside 69 (70-110)
--- NOTE | 2025-07-01 13:43 | HMH.PTEV ---
Physical Therapy Evaluation Rehab PT IP Evaluation Start: 07/01/25 00:43 Freq: ONCE Status: Active Protocol: Document 07/01/25 13:26 EDDA (Rec: 07/01/25 13:43 [facility] [id number]) Subjective/History History History 65-year-old female with diabetes, hypertension, hypothyroid, CAD, PAD, obesity. She presented to her PCP today due to concern of weakness since Thursday. Was found to be positive for COVID. Her primary care provider had her discontinue her blood pressure medication. Took her normal diabetes meds at home this morning. [place] weak. EMS was called patient was found to have glucose of 43. Received 1 mg of glucagon IM with improvement in glucose to 167. Arrival to the ED, her glucose was continuing to drop. In light of administration of p.o. dextrose and continuing to have drop in glucose, medicine was consulted for admission and further management. Pt reports she lives with her , 4 LUBA the home, and she is generally independent with all mobility without AD. Subjective Subjective Pt reports she feels much better overall and agrees to mobility assessment. [facility] How much help from another person do you currently need... Turning from your None back to your side while in a flat bed without using bedrails? Moving from lying on None back to sitting on the side of a flat bed without using bedrails? Moving to and from a None bed to a chair ( including a wheelchair)? Standing up from a None chair using your arms? (e.g., wheelchair, bedside chair) Walking in hospital None room? Climbing 3-5 steps None with a railing? Mobility Score 24 Mobility Level [place] [id number] Walk 250 feet or more Mobility Calculator Rehab PT IP Eval Objective Appearance Patient Behavior Appropriate Patient Orientation Person,Place,Time Difficulty following none instructions Speech Pattern Clear Ambulation Patient Able to Yes Ambulate Ambulation Observation IP General Gait No Deviations/Normal Pattern Observation Ambulation Distance 40 (feet) Ambulation Assistive None Device Ambulation Ability Independent Balance Ability to Arise Able, uses arms to help Sitting Balance Steady, safe Standing Balance Steady, wide stance Dynamic Sitting Good Balance Ability Dynamic Standing Good Balance Ability Transfers Bed Transfer Ability Independent Chair Transfer Independent Ability Sit to Stand Bed Independent Transfer Ability Sit to Stand Chair Independent Transfer Ability Rehab PT IP prob,goals,plan Problems Date of Evaluation: 07/01/25 Discharge Plan PT Discharge Plan Pt is currently appropriate to return home once medically stable for d/c. No current needs for acute therapy services. Eval Complexity Eval Charge Codes 85224 - Moderate Complexity PHYSICIAN CERTIFICATION: I certify the specified therapy services for Bonnie Mercado are required, authorized, and reviewed every 30 days.
--- NOTE | 2025-07-01 13:55 | PC.NURSE ---
PATIENT BLOOD GLUCOSE WAS 91 THIS MORNING, 79 THIS AFTERNOON, AND 65 WHEN CHECKED AT 1300, INSTRUCTED PATIENT THAT SHE NEEDED TO EAT HER LUNCH TO HELP PREVENT HER GLUCOSE FROM DROPPING FURTHER, PATIENT REFUSED HER LUNCH BECAUSE SHE DID NOT HAVE HER DENTURES IN, PATIENT WAS INSTRUCTED BY THIS NURSE TO SEE IF SHE COULD HAVE HER BRING HER DENTURES SO SHE CAN EAT, PATIENT STATED THAT SHE IS VERY PARTICULAR ABOUT THE WAY HER DENTURES ARE CLEANED AND DOES NOT WANT HER TO HAVE TO KEEP UP WITH THEM WHILE SHE IS IN THE HOSPITAL... PATIENT WAS EDUCATED THAT STAFF WOULD ENSURE THAT HER DENTURES WERE CLEANED PROPERLY BUT PATIENT PERSISTENTLY REFUSED. PATIENT WOULD NOT DRINK ORANGE JUICE BUT DID PROCEED TO EAT A RICE CRISPY TREAT WITHOUT HER DENTURES AFTER BEING INFORMED OF HER BLOOD SUGAR. DIET EDITED TO SOFT FOODS ONLY.
--- NOTE | 2025-07-01 16:16 | EXP.PN ---
Subjective *Date: 07/01/25 *Time: 16:16 Interval history: seen at bedside, denied CP, SOB, N/V Exam Data for Last 24 hours Vital signs and Labs for Last 24 Hours: Temp Pulse Resp BP Pulse Ox O2 Del Method 98.8 F 89 18 121/61 95 Room Air 07/01/25 12:00 07/01/25 12:00 07/01/25 12:00 07/01/25 12:00 07/01/25 12:00 07/01/25 13:53 Laboratory Results - last 24 hr 06/30/25 20:45: WBC 10.6, RBC 4.52, Hgb 13.0, Hct 38.1, MCV 84.3, MCH 28.8, MCHC 34.1, RDW 15.0, Plt Count 153, MPV 10.7 H, Neut % (Auto) 82.6 H, Lymph % (Auto) 6.5 L, [place] % (Auto) 8.8, Eos % (Auto) 1.2, Baso % (Auto) 0.4, Neut # (Auto) 8.7 H, Lymph # (Auto) 0.7, [place] # (Auto) 0.9, Eos # (Auto) 0.1, Baso # (Auto) 0.0, Sodium 130 L, Potassium 4.4, Chloride 103, Carbon Dioxide 15 L, Anion Gap 16.4 H, BUN 88 H, Creatinine 1.90 H, Estimated Creat Clear 46, Estimated GFR 26 L, Est GFR ( Amer) 32 L, Glucose 142 H, Calcium 10.5 H, Total Bilirubin 0.6, AST 73 H, ALT 53, Alkaline Phosphatase 67, Total Protein 7.7, Albumin 3.7, Globulin 4.0 H, Albumin/Globulin Ratio 0.9 L, HCV Ab SAMANTA w/Rflx PCR Qn Negative, HIV Ag/Ab Combo Qual Negative 07/01/25 00:30: POC Glucose 74 07/01/25 01:29: POC Glucose 59 L 07/01/25 02:32: POC Glucose 129 H 07/01/25 03:35: POC Glucose 83 07/01/25 04:51: POC Glucose 53 L 07/01/25 05:52: POC Glucose 117 H 07/01/25 06:30: WBC 5.5 D, RBC 4.07 L, Hgb 11.1 L D, Hct 34.3 L, MCV 84.3, MCH 27.5, MCHC 32.7, RDW 14.9, Plt Count 140 L, MPV 10.5 H, Neut % (Auto) 65.6, Lymph % (Auto) 15.9, [place] % (Auto) 14.8 H, Eos % (Auto) 2.5, Baso % (Auto) 0.5, Neut # (Auto) 3.6, Lymph # (Auto) 0.9, [place] # (Auto) 0.8, Eos # (Auto) 0.1, Baso # (Auto) 0.0, Sodium 116 L, Potassium 4.4, Chloride 106, Carbon Dioxide 16 L, Anion Gap -1.6 L, BUN 75 H, Creatinine 1.80 H, Estimated Creat Clear 49, Estimated GFR 28 L, Est GFR ( Amer) 34 L, Glucose 78 D, Hemoglobin A1c 7.7 H, Calcium 10.0, Magnesium 1.8, Total Bilirubin 0.7, AST 61 H, ALT 45, Alkaline Phosphatase 73, Total Protein 6.4, Albumin 3.1 L D, Globulin 3.3 H, Albumin/Globulin Ratio 0.9 L, TSH 0.15 L 07/01/25 06:48: POC Glucose 73 07/01/25 07:44: Sodium 131 L, Potassium 4.6, Chloride 107, Carbon Dioxide 15 L, Anion Gap 13.6, BUN 69 H, Creatinine 1.70 H, Estimated Creat Clear 52, Estimated GFR 30 L, Est GFR ( Amer) 36 L, Glucose 82, Calcium 10.2 07/01/25 08:17: POC Glucose 91 07/01/25 09:27: POC Glucose 78 07/01/25 12:51: POC Glucose 69 L I & O for Last 24 hours: Intake & Output 06/28/25 06/29/25 06/30/25 07/01/25 23:59 23:59 23:59 23:59 Intake Total 360 / 360 Output Total 900 / 900 Balance -540 / -540 Weight 99.79 kg 100.652 kg Constitutional Constitutional: no acute distress *Routine HEENT Exam Head: Present normocephalic Eye: Present EOMI and PERRL ENT: Present mucous membranes moist *Routine Neck Exam Neck: Present supple; Absent lymphadenopathy *Routine Respiratory Exam Respiratory: Present CTA bilaterally *Routine Cardiovascular Exam Cardiovascular: Present RRR *Routine Abdominal Exam Abdominal: Present soft and normoactive bowel sounds; Absent tenderness *Routine Extremities Exam Extremities: Absent cyanosis, clubbing or edema *Routine Skin Exam Skin: Present warm; Absent rash *Routine Neurological Exam Neurological: Present alert and oriented X3 Assessment and Plan *Assessment and plan (1) BHARAT (acute kidney injury): Status: Acute Category: Medical Code(s): N17.9 - Acute kidney failure, unspecified (2) COVID-19: Status: Acute Category: Medical Code(s): U07.1 - COVID-19 (3) Hypoglycemia secondary to sulfonylurea: Status: Acute Category: Medical Code(s): T38.3X1A - Poisoning by insulin and oral hypoglycemic [antidiabetic] drugs, accidental (unintentional), initial encounter; E16.0 - Drug-induced hypoglycemia without coma (4) CAD (coronary artery disease): Status: Chronic Qualifiers: Coronary Disease-Associated Artery/Lesion type: [place] artery [place] vs. 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 insulin use: without detention use Diabetes mellitus complication status: without complication Qualified Code(s): E11.9 - Type 2 diabetes mellitus without complications Category: Medical Code(s): E11.9 - Type 2 diabetes mellitus without complications (7) Hypothyroidism: Status: Chronic Qualifiers: Hypothyroidism type: unspecified Qualified Code(s): E03.9 - Hypothyroidism, unspecified Category: Medical Code(s): E03.9 - Hypothyroidism, unspecified (8) Hypertension: Status: Chronic Qualifiers: Hypertension type: essential hypertension Qualified Code(s): I10 - Essential (primary) hypertension Category: Medical Code(s): I10 - Essential (primary) hypertension (9) Hyperlipemia: Status: Chronic Qualifiers: Hyperlipidemia type: mixed hyperlipidemia Qualified Code(s): E78.2 - Mixed hyperlipidemia Category: Medical Code(s): E78.5 - Hyperlipidemia, unspecified (10) Obesity (BMI 30-39.9): Status: Chronic Category: Medical Code(s): E66.9 - Obesity, unspecified Plan 65-year-old with multiple comorbidities who was diagnosed with COVID today. Has been weak for a few days. Found to be hypoglycemic with an BHARAT on presentation. COVID-19 BHARAT monitor Cr Holding home blood pressure medications including empagliflozin, isosorbide, atenolol, lisinopril. - Patient initiated on Paxlovid as an outpatient. Will hold at this time as she is stable on room air. White count normal at 10.6. No acute respiratory distress - Currently on room air, monitor for oxygen needs. Goal sats greater 90% Hypoglycemia secondary to sulfonylurea Type 2 diabetes - Holding Rybelsus, metformin, glipizide, empagliflozin. - Transition to fingersticks ACHS once glucose level is stable - Regular diet - A1C pending. Last A1c a year ago was 8.8. Hypothyroid: Continue levothyroxine 125 mcg daily. CAD/PE 80: Continue aspirin 81 mg daily and Plavix 75 mg daily GERD: Continue pantoprazole 40 mg daily Full code Regular diet Heparin subcu 3 times daily continue to monitor inpatient
[2025-07-01 17:51] LABS: POC Glucose,Bedside 174 (70-110)
--- NOTE | 2025-07-01 18:13 | PC.NURSE ---
patient ate all of the food family brought in for dinner, 1800 blood sugar check was 174.
--- NOTE | 2025-07-01 19:19 | P.PN_ITS ---
Subjective *Date: 07/01/25 *Time: 19:19 Interval history: seen at bedside, denied CP, SOB, N/V Exam Data for Last 24 hours Vital signs and Labs for Last 24 Hours: Temp Pulse Resp BP Pulse Ox O2 Del Method 98.3 F 86 16 110/66 98 Room Air 07/01/25 16:00 07/01/25 16:00 07/01/25 16:00 07/01/25 16:00 07/01/25 16:00 07/01/25 18:12 Laboratory Results - last 24 hr 06/30/25 20:45: WBC 10.6, RBC 4.52, Hgb 13.0, Hct 38.1, MCV 84.3, MCH 28.8, MCHC 34.1, RDW 15.0, Plt Count 153, MPV 10.7 H, Neut % (Auto) 82.6 H, Lymph % (Auto) 6.5 L, Elk % (Auto) 8.8, Eos % (Auto) 1.2, Baso % (Auto) 0.4, Neut # (Auto) 8.7 H, Lymph # (Auto) 0.7, Elk # (Auto) 0.9, Eos # (Auto) 0.1, Baso # (Auto) 0.0, Sodium 130 L, Potassium 4.4, Chloride 103, Carbon Dioxide 15 L, Anion Gap 16.4 H , BUN 88 H, Creatinine 1.90 H, Estimated Creat Clear 46, Estimated GFR 26 L, Est GFR ( Amer) 32 L, Glucose 142 H, Calcium 10.5 H, Total Bilirubin 0.6, AST 73 H, ALT 53, Alkaline Phosphatase 67, Total Protein 7.7, Albumin 3.7, Globulin 4.0 H, Albumin/Globulin Ratio 0.9 L, HCV Ab SAMANTA w/Rflx PCR Qn Negative, HIV Ag/Ab Combo Qual Negative 07/01/25 00:30: POC Glucose 74 07/01/25 01:29: POC Glucose 59 L 07/01/25 02:32: POC Glucose 129 H 07/01/25 03:35: POC Glucose 83 07/01/25 04:51: POC Glucose 53 L 07/01/25 05:52: POC Glucose 117 H 07/01/25 06:30: WBC 5.5 D, RBC 4.07 L, Hgb 11.1 L D, Hct 34.3 L, MCV 84.3, MCH 27.5, MCHC 32.7, RDW 14.9, Plt Count 140 L, MPV 10.5 H, Neut % (Auto) 65.6, Lymph % (Auto) 15.9, Elk % (Auto) 14.8 H, Eos % (Auto) 2.5, Baso % (Auto) 0.5, Neut # (Auto) 3.6, Lymph # (Auto) 0.9, Elk # (Auto) 0.8, Eos # (Auto) 0.1, Baso # (Auto) 0.0, Sodium 116 L, Potassium 4.4, Chloride 106, Carbon Dioxide 16 L, Anion Gap -1.6 L, BUN 75 H, Creatinine 1.80 H, Estimated Creat Clear 49, Estimated GFR 28 L, Est GFR ( Amer) 34 L, Glucose 78 D, Hemoglobin A1c 7.7 H, Calcium 10.0, Magnesium 1.8, Total Bilirubin 0.7, AST 61 H, ALT 45, Alkaline Phosphatase 73, Total Protein 6.4, Albumin 3.1 L D, Globulin 3.3 H, Albumin/Globulin Ratio 0.9 L, TSH 0.15 L 07/01/25 06:48: POC Glucose 73 07/01/25 07:44: Sodium 131 L, Potassium 4.6, Chloride 107, Carbon Dioxide 15 L, Anion Gap 13.6, BUN 69 H, Creatinine 1.70 H, Estimated Creat Clear 52, Estimated GFR 30 L, Est GFR ( Amer) 36 L, Glucose 82, Calcium 10.2 07/01/25 08:17: POC Glucose 91 07/01/25 09:27: POC Glucose 78 07/01/25 12:51: POC Glucose 69 L 07/01/25 17:43: POC Glucose 174 H I & O for Last 24 hours: Intake & Output 06/28/25 06/29/25 06/30/25 07/01/25 23:59 23:59 23:59 23:59 Intake Total 360 / 360 Output Total 1550 / 1550 Balance -1190 / -1190 Weight 99.79 kg 100.652 kg Constitutional Constitutional: no acute distress *Routine HEENT Exam Head: Present normocephalic Eye: Present EOMI and PERRL ENT: Present mucous membranes moist *Routine Neck Exam Neck: Present supple; Absent lymphadenopathy *Routine Respiratory Exam Respiratory: Present CTA bilaterally *Routine Cardiovascular Exam Cardiovascular: Present RRR *Routine Abdominal Exam Abdominal: Present soft and normoactive bowel sounds; Absent tenderness *Routine Extremities Exam Extremities: Absent cyanosis, clubbing or edema *Routine Skin Exam Skin: Present warm; Absent rash *Routine Neurological Exam Neurological: Present alert and oriented X3 Assessment and Plan *Assessment and plan (1) BHARAT (acute kidney injury): Status: Acute Category: Medical Code(s): N17.9 - Acute kidney failure, unspecified (2) COVID-19: Status: Acute Category: Medical Code(s): U07.1 - COVID-19 (3) Hypoglycemia secondary to sulfonylurea: Status: Acute Category: Medical Code(s): T38.3X1A - Poisoning by insulin and oral hypoglycemic [antidiabetic] drugs, accidental (unintentional), initial encounter; E16.0 - Drug-induced hypoglycemia without coma (4) CAD (coronary artery disease): Status: Chronic Qualifiers: Coronary Disease-Associated Artery/Lesion type: [place] artery [place] vs. 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 use: without dedicated intermodal truck driver use Diabetes mellitus complication status: without complication Qualified Code(s): E11.9 - Type 2 diabetes mellitus without complications Category: Medical Code(s): E11.9 - Type 2 diabetes mellitus without complications (7) Hypothyroidism: Status: Chronic Qualifiers: Hypothyroidism type: unspecified Qualified Code(s): E03.9 - Hypothyroidism, unspecified Category: Medical Code(s): E03.9 - Hypothyroidism, unspecified (8) Hypertension: Status: Chronic Qualifiers: Hypertension type: essential hypertension Qualified Code(s): I10 - Essential (primary) hypertension Category: Medical Code(s): I10 - Essential (primary) hypertension (9) Hyperlipemia: Status: Chronic Qualifiers: Hyperlipidemia type: mixed hyperlipidemia Qualified Code(s): E78.2 - Mixed hyperlipidemia Category: Medical Code(s): E78.5 - Hyperlipidemia, unspecified (10) Obesity (BMI 30-39.9): Status: Chronic Category: Medical Code(s): E66.9 - Obesity, unspecified Plan 65-year-old with multiple comorbidities who was diagnosed with COVID today. Has been weak for a few days. Found to be hypoglycemic with an BHARAT on presentation. COVID-19 BHARAT monitor Cr Holding home blood pressure medications including empagliflozin, isosorbide, atenolol, lisinopril. - Patient initiated on Paxlovid as an outpatient. Will hold at this time as she is stable on room air. Hypoglycemia secondary to sulfonylurea Type 2 diabetes - Holding Rybelsus, metformin, glipizide, empagliflozin. - Transition to fingersticks ACHS once glucose level is stable - Regular diet - A1C pending. Last A1c a year ago was 8.8. monitor glucose, continue IV fluids Hypothyroid: Continue levothyroxine 125 mcg daily. CAD/PE 80: Continue aspirin 81 mg daily and Plavix 75 mg daily GERD: Continue pantoprazole 40 mg daily Full code Regular diet Heparin subcu 3 times daily continue to monitor inpatient monitor glucose, continue IV fluids, likely dc 1-2 days pending improvement
[2025-07-01 20:43] LABS: POC Glucose,Bedside 249 (70-110)
[2025-07-02] VITALS: BP 117/49; PULSE 88; RESP 16; TEMP 36.7; O2SAT 97
[2025-07-02 00:01] LABS: POC Glucose,Bedside 208 (70-110)
[2025-07-02 04:00] VITALS: BP 148/76; PULSE 88; RESP 16; TEMP 36.8; O2SAT 94; BMI 35.8
[2025-07-02 04:08] LABS: POC Glucose,Bedside 256 (70-110)
--- NOTE | 2025-07-02 04:11 | PC.NURSE ---
Pt A&O x4. Pt is on RA. Pt was able to eat a meal for dinner last night, and has maintained blood glucose levels in the 200's. Pt will likely receive short acting insulin pending 0600 finger stick. Dressing placed on wound to rt foot. Pt has had no acute changes noted. Pt resting w/ call romano in reach and is not voicing any further concerns. POC ongoing.
[2025-07-02] MEDS: humaLOG 100 UNITS/ML 10ML VIAL (SSI) SUBCUT (06:26)
[2025-07-02] MEDS: LEVOTHYROXINE 125MCG (0.125MG) TAB 125 MCG PO (06:26)
[2025-07-02 06:36] LABS: POC Glucose,Bedside 213 (70-110)
[2025-07-02 06:53] LABS: Magnesium 1.9 mg/dl (1.6-2.3)
[2025-07-02 07:57] LABS: Albumin Level 2.9 g/dl (3.5-5.0); Chloride 109 mmol/L (98-107)
[2025-07-02 07:58] LABS: Potassium 5.0 mmoL/L (3.5-5.1); Sodium 133 mmol/L (136-145)
[2025-07-02 08:00] VITALS: BP 117/69; PULSE 91; RESP 18; TEMP 36.8; O2SAT 97
[2025-07-02 08:00] LABS: Alanine Aminotransferase 59 U/L (12-78); Anion Gap 14.0 mEq/L (5-15); Aspartate Amino Transferase 75 U/L (14-36); Blood Urea Nitrogen 60 mg/dl (7-17); Carbon Dioxide 15 mmol/L (22.0-30.0); Creatinine Clearance Estimated 63 mL/min (50-200); Creatinine,Serum 1.40 mg/dl (0.52-1.04); Estimated Glomerular Filt Rate 38 ml/min (>60); GFR (African American) 46 ML/MIN (>60)
[2025-07-02 08:01] LABS: Albumin/Globulin Ratio 0.9 (1.1-1.8); Alkaline Phosphatase 83 U/L (38-126); Bilirubin,Total 0.6 mg/dl (0.2-1.3); Calcium 9.6 mg/dl (8.4-10.2); Globulin 3.2 g/dL (1.3-3.2); Glucose 199 mg/dl (74-100); Total Protein,Serum 6.1 g/dl (6.3-8.2)
[2025-07-02] MEDS: HEPARIN SODIUM 5,000 UNIT/ML VIAL 5000 UNIT SUBCUT (09:18)
[2025-07-02] MEDS: ASPIRIN EC 81MG TABLET 81 MG PO (09:18)
[2025-07-02] MEDS: PANTOPRAZOLE 40MG TABLET 40 MG PO (09:18)
[2025-07-02] MEDS: CLOPIDOGREL 75MG TAB 75 MG PO (09:18)
[2025-07-02] MEDS: BENZONATATE 100MG CAPSULE 100 MG PO (09:44)
--- NOTE | 2025-07-02 11:21 | EXP.DC.SUM ---
General Admission date:: 07/01/25 Discharge date: 07/02/25 HPI HPI HPI: Ms. Mercado is a 65-year-old female with diabetes, hypertension, hypothyroid, CAD, PAD, obesity. She presented to her PCP today due to concern of weakness since Thursday. Was found to be positive for COVID. Her primary care provider had her discontinue her blood pressure medication. Took her normal diabetes meds at home this morning. [place] weak. EMS was called patient was found to have glucose of 43. Received 1 mg of glucagon IM with improvement in glucose to 167. Arrival to the ED, her glucose was continuing to drop. In light of administration of p.o. dextrose and continuing to have drop in glucose, medicine was consulted for admission and further management. Further workup found to have significant BHARAT with BUN 88, creatinine 1.9. Patient stable on room air. Afebrile. White count normal at 10.6. On arrival to the floor, patient states she feels cold but does not have a beckie fever. Is in mild distress because of chills but stable on room air. Alert and oriented x 4. No nausea or vomiting. No chest pain. No shortness of breath. Just feels significantly weak. had similar symptoms preceding hers.. Hospital Course Hospital Course Hospital Course: 65-year-old with multiple comorbidities who was diagnosed with COVID today. Has been weak for a few days. Found to be hypoglycemic with an BHARAT on presentation. COVID-19 - no symptoms, not on oxygen, hold pavlovid BHARAT - improving and resolving, counseled on hydration, stable for DC Hypoglycemia secondary to sulfonylurea Type 2 diabetes ok to resume home meds and follow up with PCP Exam Data for Last 24 hours Vital signs and Labs for Last 24 Hours: Temp Pulse Resp BP Pulse Ox O2 Del Method 98.2 F 91 H 18 117/69 97 Room Air 07/02/25 08:00 07/02/25 08:00 07/02/25 08:00 07/02/25 08:00 07/02/25 08:00 07/02/25 09:00 Laboratory Results - last 24 hr 07/01/25 12:51: POC Glucose 69 L 07/01/25 17:43: POC Glucose 174 H 07/01/25 20:34: POC Glucose 249 H 07/01/25 23:54: POC Glucose 208 H 07/02/25 04:01: POC Glucose 256 H 07/02/25 06:05: Sodium 133 L, Potassium 5.0, Chloride 109 H, Carbon Dioxide 15 L, Anion Gap 14.0, BUN 60 H, Creatinine 1.40 H, Estimated Creat Clear 63, Estimated GFR 38 L, Est GFR ( Amer) 46 L D, Glucose 199 H D, Calcium 9.6, Magnesium 1.9, Total Bilirubin 0.6, AST 75 H, ALT 59 D, Alkaline Phosphatase 83, Total Protein 6.1 L, Albumin 2.9 L, Globulin 3.2, Albumin/Globulin Ratio 0.9 L 07/02/25 06:26: POC Glucose 213 H I & O for Last 24 hours: Intake & Output 06/29/25 06/30/25 07/01/25 07/02/25 23:59 23:59 23:59 23:59 Intake Total 360 / 360 Output Total 1550 / 1550 1200 / 1200 Balance -1190 / -1190 -1200 / -1200 Weight 99.79 kg 100.652 kg 101.151 kg Constitutional Constitutional: no acute distress *Routine HEENT Exam Head: Present normocephalic Eye: Present EOMI and PERRL ENT: Present mucous membranes moist *Routine Neck Exam Neck: Present supple; Absent lymphadenopathy *Routine Respiratory Exam Respiratory: Present CTA bilaterally *Routine Cardiovascular Exam Cardiovascular: Present RRR *Routine Abdominal Exam Abdominal: Present soft and normoactive bowel sounds; Absent tenderness *Routine Extremities Exam Extremities: Absent cyanosis, clubbing or edema *Routine Skin Exam Skin: Present warm; Absent rash *Routine Neurological Exam Neurological: Present alert and oriented X3 Results Data Completed and Pending Labs on day of discharge: Labs from last 24 hours 07/02/25 07/02/25 07/02/25 06:26 06:05 04:01 Sodium 133 L Potassium 5.0 Chloride 109 H Carbon Dioxide 15 L Anion Gap 14.0 BUN 60 H Creatinine 1.40 H Estimated Creat Clear 63 Estimated GFR 38 L Est GFR ( Amer) 46 L D Glucose 199 H D POC Glucose 213 H 256 H Calcium 9.6 Magnesium 1.9 Total Bilirubin 0.6 AST 75 H ALT 59 D Alkaline Phosphatase 83 Total Protein 6.1 L Albumin 2.9 L Globulin 3.2 Albumin/Globulin Ratio 0.9 L 07/01/25 07/01/25 07/01/25 23:54 20:34 17:43 Sodium Potassium Chloride Carbon Dioxide Anion Gap BUN Creatinine Estimated Creat Clear Estimated GFR Est GFR ( Amer) Glucose POC Glucose 208 H 249 H 174 H Calcium Magnesium Total Bilirubin AST ALT Alkaline Phosphatase Total Protein Albumin Globulin Albumin/Globulin Ratio 07/01/25 12:51 Sodium Potassium Chloride Carbon Dioxide Anion Gap BUN Creatinine Estimated Creat Clear Estimated GFR Est GFR ( Amer) Glucose POC Glucose 69 L Calcium Magnesium Total Bilirubin AST ALT Alkaline Phosphatase Total Protein Albumin Globulin Albumin/Globulin Ratio DS: Diagnosis Discharge Diagnosis (1) BHARAT (acute kidney injury): Status: Acute Code(s): N17.9 - Acute kidney failure, unspecified (2) COVID-19: Status: Acute Code(s): U07.1 - COVID-19 (3) Hypoglycemia secondary to sulfonylurea: Status: Acute Code(s): T38.3X1A - Poisoning by insulin and oral hypoglycemic [antidiabetic] drugs, accidental (unintentional), initial encounter; E16.0 - Drug-induced hypoglycemia without coma (4) CAD (coronary artery disease): Status: Chronic Code(s): I25.10 - Atherosclerotic heart disease of [place] coronary artery without angina pectoris Qualifiers: Coronary Disease-Associated Artery/Lesion type: [place] artery [place] vs. 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 use: without mcfp use Diabetes mellitus complication status: without complication Qualified Code(s): E11.9 - Type 2 diabetes mellitus without complications (7) Hypothyroidism: Status: Chronic Code(s): E03.9 - Hypothyroidism, unspecified Qualifiers: Hypothyroidism type: unspecified Qualified Code(s): E03.9 - Hypothyroidism, unspecified (8) Hypertension: Status: Chronic Code(s): I10 - Essential (primary) hypertension Qualifiers: Hypertension type: essential hypertension Qualified Code(s): I10 - Essential (primary) hypertension (9) Hyperlipemia: Status: Chronic Code(s): E78.5 - Hyperlipidemia, unspecified Qualifiers: Hyperlipidemia type: mixed hyperlipidemia Qualified Code(s): E78.2 - Mixed hyperlipidemia (10) Obesity (BMI 30-39.9): Status: Chronic Code(s): E66.9 - Obesity, unspecified Meds Home Medications and Allergies Home Medications ?Medication ?Instructions ?Recorded ?Confirmed ?Type aspirin 81 mg tablet,delayed 81 mg PO DAILY 06/30/19 07/01/25 History release (Adult Low Dose Aspirin) cholecalciferol (vitamin D3) 25 1,000 unit PO DAILY #90 caps 11/19/22 07/01/25 Rx mcg (1,000 unit) capsule ascorbic acid (vitamin C) 250 mg 250 mg PO DAILY 05/14/23 07/01/25 History tablet cinnamon bark 500 mg capsule 500 mg PO DAILY 05/14/23 07/01/25 History atorvastatin 80 mg tablet 80 mg PO DAILY #90 tabs 12/02/23 07/01/25 Rx pantoprazole 40 mg tablet,delayed 40 mg PO DAILY #90 tabs 12/02/23 07/01/25 Rx release isosorbide mononitrate 30 mg 30 mg PO DAILY #90 tabs 03/17/24 07/01/25 Rx tablet,extended release 24 hr clopidogrel 75 mg tablet 75 mg PO DAILY #90 tabs 08/24/24 07/01/25 Rx empagliflozin 25 mg tablet 25 mg PO DAILY 03/09/25 07/01/25 History (Jardiance) nitroglycerin 0.4 mg sublingual 0.4 mg sublingual Q5-15M PRN chest 03/09/25 07/01/25 Rx tablet pain #30 tabs glipizide 10 mg tablet, extended 10 mg PO BID 07/01/25 07/01/25 History release 24 hr latanoprost 0.005 % eye drops 1 drp Eye-Both HS 07/01/25 07/01/25 History levothyroxine 125 mcg tablet 125 mcg PO DAILYDM 07/01/25 07/01/25 History loratadine 10 mg tablet 10 mg PO DAILY 07/01/25 07/01/25 History metformin 500 mg tablet,extended 500 mg PO BIDWMEAL 07/01/25 07/01/25 History release 24 hr mupirocin 2 % topical ointment 1 applic topical TID 07/01/25 07/01/25 History semaglutide 14 mg tablet (Rybelsus) 14 mg PO DAILY 07/01/25 07/01/25 History silver sulfadiazine 1 % topical 1 applic topical BID 07/01/25 07/01/25 History cream New Prescriptions to Start Prescriptions: Allergies Allergy/AdvReac Type Severity Reaction Status Date / Time penicillin G Allergy Mild S-BLISTERING Verified 03/09/25 10:17 WELTS tizanidine AdvReac Intermediate Verified 03/09/25 10:17 Discharge Plan Disposition Patient Disposition: Home, Self-Care Condition: Good Follow up Plan Follow up with: Rhonda Hopper PA [Primary Care Provider, Medical] - Enter time for follow up Prescriptions/Medication Reconciliation: Continued atorvastatin 80 mg tablet 80 mg PO DAILY Qty: 90 3RF aspirin [Adult Low Dose Aspirin] 81 mg tablet,delayed release (DR/EC) 81 mg PO DAILY ascorbic acid (vitamin C) 250 mg tablet 250 mg PO DAILY cinnamon bark 500 mg capsule 500 mg PO DAILY isosorbide mononitrate 30 mg tablet extended release 24 hr 30 mg PO DAILY Qty: 90 3RF Jardiance 25 mg tablet 25 mg PO DAILY nitroglycerin 0.4 mg tablet, sublingual 0.4 mg sublingual Q5-15M PRN (Reason: chest pain) Qty: 30 1RF Rx Instructions: do not exceed 3 doses per episode cholecalciferol (vitamin D3) 25 mcg (1,000 unit) capsule 1,000 unit PO DAILY Qty: 90 3RF pantoprazole 40 mg tablet,delayed release (DR/EC) 40 mg PO DAILY Qty: 90 3RF clopidogrel 75 mg tablet 75 mg PO DAILY Qty: 90 1RF glipizide 10 mg tablet extended release 24hr 10 mg PO BID latanoprost 0.005 % drops 1 drp Eye-Both HS silver sulfadiazine 1 % cream 1 applic TOPICAL BID Rybelsus 14 mg tablet 14 mg PO DAILY levothyroxine 125 mcg tablet 125 mcg PO DAILYDM metformin 500 mg tablet extended release 24 hr 500 mg PO BIDWMEAL mupirocin 2 % Ointment 1 applic TOPICAL TID loratadine 10 mg Tablet 10 mg PO DAILY Problem Reconciliation Problems Reviewed?: Yes Patient Discharge Instructions ACTIVITY: Continue current activity DIET: continue same diet Patient Instructions: DI for Kidney Failure, DI for Hypoglycemia, DI for COVID-19 (Suspected or Confirmed ), COVID-19 Print Language: Kazakh Providers Primary Care Provider: Rhonda Hopper Admit Provider: Thanh Lobo Attending Provider: Thanh Lobo
--- NOTE | 2025-07-03 11:29 | SW/DCPLANNER ---
Spoke with patient on the phone. Patient stated that she is doing good. Patient stated that she is aware of her upcoming appointment. Patient stated that she was able to get her new medicine picked up. Patient stated that she has no concerns or questions at this time. Anshul Goldman
== END 2025-07-02 12:07 | disposition home or self-care (01) ==
LOC: ER 23:55 → 2ND 07-01 00:10
PROVIDERS: Admitting Provider Internal Medicine Adolescent Medicine; Emergency Provider Student in an Organized Health Care Education/Training Program; PCP Physician Assistant; Visit Provider Internal Medicine Adolescent Medicine
DX: T38.3X1A Poisoning by insulin and oral hypoglycemic [antidiabetic] drugs, accidental (unintentional), initial encounter (principal); E16.0 Drug-induced hypoglycemia without coma; N17.9 Acute kidney failure, unspecified; E11.649 Type 2 diabetes mellitus with hypoglycemia without coma; U07.1 COVID-19; E11.51 Type 2 diabetes mellitus with diabetic peripheral angiopathy without gangrene; E11.21 Type 2 diabetes mellitus with diabetic nephropathy; I25.118 Atherosclerotic heart disease of native coronary artery with other forms of angina pectoris; E03.9 Hypothyroidism, unspecified; I10 Essential (primary) hypertension; E78.2 Mixed hyperlipidemia; E66.9 Obesity, unspecified; K21.9 Gastro-esophageal reflux disease without esophagitis; I26.99 Other pulmonary embolism without acute cor pulmonale; I65.29 Occlusion and stenosis of unspecified carotid artery; Z86.73 Personal history of transient ischemic attack (TIA), and cerebral infarction without residual deficits; Z87.39 Personal history of other diseases of the musculoskeletal system and connective tissue; Z87.891 Personal history of nicotine dependence; Z88.0 Allergy status to penicillin; Z88.6 Allergy status to analgesic agent; Z79.899 Other long term (current) drug therapy; Z79.890 Hormone replacement therapy; Z79.82 Long term (current) use of aspirin; Z95.5 Presence of coronary angioplasty implant and graft; Z68.35 Body mass index [BMI] 35.0-35.9, adult; Z79.02 Long term (current) use of antithrombotics/antiplatelets; Z79.4 Long term (current) use of insulin; Z79.84 Long term (current) use of oral hypoglycemic drugs
CPT/HCPCS: 36415; 80048; 80053; 82962; 83036; 83735; 84443; 85025; 86803; 87389; 96360; 96361; 97162; 99291; G0378; J1644; J7120; J7121

== ENCOUNTER 2025-10-04 07:29 | Outpatient (CLI) | payer MEDICARE, SELFPAY ==
--- OUTSIDE RECORDS SUMMARY | 2025-10-04 07:32 | XMS_ITS | Data Portability ---
Author Organization [place] - [facility] Address [address] [place] [address] Care Team Providers Care Color Repairer Name Role Phone KIRTI OBREGON Referring Provider [phone] Assessment Encounter Date Assessment Date Assessment LastModified by Organization Details LastModified Time 09/04/2025 09/04/2025 ASSESSMENT: The patient presents with bilateral knee pain and sciatica, both of which significantly impact her mobility and daily activities. She has a history of diabetes, which complicates the use of steroid injections due to potential blood sugar elevation. Her recent fall and foot injury have further exacerbated her symptoms and contributed to elevated blood pressure. She has not undergone physical therapy for her knees, and imaging studies of her knees and back are pending for further evaluation. PLAN: Bonnie Mercado is presenting to the clinic for evaluation. - Bilateral knee pain, chronic: Schedule X-rays of bilateral knees to assess joint condition. Recommend initiating physical therapy at [facility]. Plan for a single injection of Synvisc-One for both knees under X-ray guidance. - this will help the patient to participate in physical therapy since the patient is unable to do any kind of therapy because for pain right now - Sciatica, chronic: Schedule X-rays of the lumbar spine to evaluate for structural abnormalities. Address back pain management after knee treatment. - Additional Plan Details: Discussed the benefits of Synvisc-One injections over cortisone injections for diabetic patients. Coordinated scheduling for imaging and injections. - Follow-up: Follow-up after imaging and injection to assess progress and determine further management. Please note this report was created using voice recognition/text compilation software documentation services during the encounter with the patient. [email or web address] Not available 09/07/2025 09:37:39 Plan of Treatment Reminders Order Date Submit Date Provider Last Modified By Organization Details Last Modified Time Details Appointments OV EST 15 2024 09:15A M OLIVIA ALEJO PA-C Not available Not available Not available Lab None recorded. Referral None recorded. Procedures intra-art icular injection , knee, viscosupp lement (PROC) - Bilateral Knee [facility]isc one [facility] [address], [address], [place], [address], 09/07/2025 09:38:26 Surgeries None recorded. Imaging XR, knee - bilateral knees 2024 [facility] (Radiology), [address] [place], [address], 09/12/2025 14:28:53 XR, lumbar spine 2024 [facility] (Radiology), [address] [place], [address], 09/12/2025 14:31:04 Medication Orders None recorded. Patient TargetsNo targets recorded. Patient Instructions Encounter Date Encounter Id Patient Instructions Last Modified By Organization Details Last Modified Time 09/04/2025 [id number] physical therapy * - working on bilateral knees for 4-6 weeks at a frequency of at least 2-3 sessions per week [email or web address] Not available 10/02/2025 10:31:10 Reason for Referral None Reported. Results Created Date Observation Date Name Description Value Unit Range Abnormal Flag Note LastModifiedBy Organization Detail LastModifiedTime 09/05/2009/04/2025 XR, knee No observ ation record ed. [facility] (Radiology) [address] [place], [address], 09/12/2025 14:29:01 09/05/2009/04/2025 XR, knee No observ ation record ed. [email or web address] [facility] (Radiology) [address] [place], [address], 09/12/2025 14:30:02 09/05/2009/04/2025 XR, lumba r spine No observ ation record ed. [facility] (Radiology) [address] , [place], [address], 09/12/2025 14:31:04 Result Notes None recorded. Medical Equipment None Reported. Medications Name Sig Start Date Stop Date Status Note LastModified by Organization Details LastModified Time latanoprost 0.005 % eye drops INSTILL ONE DROP IN EACH EYE AT BEDTIME active Not Available Not Available No t Available silver sulfadiazin e 1 % topical cream APPLY A 1/16 INCH (1.5 MM) THICK LAYER TO ENTIRE BURN AREA BY TOPICALRO ENTERPRISE 2 TIMES PER DAY 08/24 completed Not Available Not Available Not Available atorvastati n 80 mg tablet TAKE 1 TABLET BY MOUTH EVERY DAY AT BEDTIME FOR 90 DAYS, FOR high cholester ol active Not Available Not Available No t Available doxycycline hyclate 100 mg capsule TAKE 1 TABLET BY MOUTH TWICE DAILY FOR 10 DAYS 08/24 completed Not Available Not Available Not Available azithromyci n 250 mg tablet TAKE 2 TABLETS BY MOUTH TODAY, THEN TAKE 1 TABLET DAILY FOR 4 DAYS DIRECTED 08/24 completed Not Available Not Available Not Available tizanidine 4 mg tablet TAKE ONE TABLET BY MOUTH TWICE DAILY NEEDED FOR sciatic pain active Not Available Not Available No t Available benzonatate 200 mg capsule TAKE 1 CAPSULE BY MOUTH 3 TIMES DAILY FOR 10 DAYS active Not Available Not Available No t Available glipizide ER 10 mg tablet, extended release 24 hr TAKE 1 TABLET BY MOUTH TWICE DAILY as directed FOR 90 DAYS, FOR diabetes active Not Available Not Available No t Available prednisone 20 mg tablet TAKE 1 TABLET BY MOUTH TWICE DAILY as directed FOR 5 DAYS active Not Available Not Available No t Available isosorbide mononitrate ER 30 mg tablet,exte nded release 24 hr TAKE 1 TABLET BY MOUTH EVERY DAY as directed FOR 90 DAYS FOR HEART active Not Available Not Available No t Available atenolol 25 mg tablet TAKE ONE TABLET BY MOUTH EVERY DAY DIRECTED for high blood pressure active Not Available Not Available No t Available Accu-Chek Softclix Lancets Use as directed. three times daily testing active Not Available Not Available No t Available clopidogrel 75 mg tablet TAKE 1 TABLET BY MOUTH EVERY DAY as directed FOR 90 DAYS, FOR blood thinner active Not Available Not Available No t Available sulfamethox azole 800 mg-trimetho prim 160 mg tablet TAKE 1 TABLET BY MOUTH every 12 hours FOR 10 DAYS 08/24 completed Not Available Not Available Not Available aspirin 81 mg tablet,ethan yed release TAKE ONE TABLET BY MOUTH EVERY DAY DIRECTED for heart health active Not Available Not Available No t Available pantoprazol e 40 mg tablet,ethan yed release TAKE 1 TABLET BY MOUTH EVERY DAY as directed FOR 90 DAYS, FOR heartburn /reflux active Not Available Not Available No t Available levothyroxi ne 125 mcg tablet TAKE 1 TABLET BY MOUTH EVERY DAY as directed FOR 90 DAYS, FOR THYROID active Not Available Not Available No t Available nitroglycer in 0.4 mg sublingual tablet DISSOLVE ONE TABLET UNDER THE TONGUE every 5 to 15 minutes as needed for chest pain; not to exceed 3 doses per episode active Not Available Not Available No t Available hydrochloro thiazide 25 mg tablet TAKE ONE TABLET BY MOUTH EVERY DAY DIRECTED FOR BLOOD PRESSURE active Not Available Not Available No t Available mupirocin 2 % topical ointment APPLY A SMALL AMOUNT TO THE AFFECTED AREA BY TOPICAL ROUTE 3 TIMES PER DAY 08/24 completed Not Available Not Available Not Available methylpredn isolone 4 mg tablets in a dose pack TAKE ONE TABLET BY MOUTH DIRECTED ON package active Not Available Not Available No t Available lisinopril 40 mg tablet TAKE ONE TABLET BY MOUTH EVERY DAY DIRECTED FOR BLOOD PRESSURE active Not Available Not Available No t Available metformin ER 500 mg tablet,exte nded release 24 hr TAKE 1 TABLET BY MOUTH TWICE DAILY as directed FOR 90 DAYS, FOR diabetes active Not Available Not Available No t Available loratadine 10 mg tablet TAKE 1 TABLET BY MOUTH EVERY DAY FOR 90 DAYS active Not Available Not Available No t Available Jardiance 25 mg tablet TAKE 1 TABLET BY MOUTH EVERY DAY as directed FOR 90 DAYS, FOR diabetes active Not Available Not Available No t Available Accu-Chek Guide test strips Use as directed. three times daily testing active Not Available Not Available No t Available Accu-Chek Guide Me Glucose Meter Use as directed. 3 TIMES DAILY active Not Available Not Available No t Available Rybelsus 14 mg tablet TAKE 1 TABLET BY MOUTH EVERY DAY FOR 90 DAYS active Not Available Not Available No t Available Rybelsus 7 mg tablet TAKE ONE TABLET BY MOUTH EVERY DAY DIRECTED FOR DIABETES active Not Available Not Available No t Available Paxlovid 300 mg (150 mg x 2)-100 mg tablets in a dose pack take 1 DOSE by MOUTH twice daily as directed FOR 5 DAYS active Not Available Not Available No t Available Vitals Date Recorded Body weight Oxygen saturation Oxygen saturation in Arterial blood by Pulse oximetry Heart rate Systolic And Diastolic Provider Name and Address Organization Details Last Updated DateTime 5 038674. 88 g 91 % 91 % 117 /min 147/88 mm[Hg] Bashir Michel [facility] - [facility] - [place] & [place] 14:28:58 Social History None recorded. Functional Status None recorded. Mental Status None recorded. Family History Relationship Description Onset Age of this Age Resolved Age Notes LastModified by Organization Details LastModified Time Mother Disorder of endocrine system pt. added direct ly (09/01) API-[email or web address] Not available 09/01/2025 15:35:48 Medical History No medical history recorded. Gynecological HistoryNo gynecological history recorded. Obstetrics History GPAL:G 0 P 0 0 0 0 Past Encounters Encounter ID Performer Location Encounter Start Date Encounter Closed Date Diagnosis/Indication Diagnosis SNOMED-CT Code Diagnosis ICD10 Code Diagnosis IMO Codes Diagnosis Note [id number] Justin Steele MD [facility]- [address] [place] [address] 09/04/2025 13:04:37 09/04/2025 14:41:19 Pain of knee region 1221129064 M25.561 M25.562 G89.29 [id number] - Bilateral knee pain, chronic: Schedule X-rays of bilateral knees to assess joint condition. Chronic back pain 352339 002 M54.9 G89.29 [id number] Pain of bi lateral knee regions [id number] 98961 M25.561 Bilateral sciatica 01761 93729 [id number] M54.31 Bilateral osteoarthritis of knees [id number] 34082 M17.0 [id number] - Bilateral knee pain, chronic: Schedule X-rays of bilateral knees to assess joint condition. -Patient would benefit from physical therapy working on bilateral knees for 4-6 weeks at a frequency of at least 2-3 sessions per week. Patient request Pt be at [facility].- Plan for a single injection of Synvisc-On e for both knees under X-ray guidance. Health Concerns Section Related Observation LastModified by Organization Detai ls LastModified Time None Recorded Concern Status LastModified by Organization Details LastModified Time None Recorded Advance Directives Directive None Recorded Payers Insurance Date Sequence Insurance Name Policy Number Policy Haro Covered Member ID Haro Member ID Guarantor Name 09/21/2025 1 [employer] (MEDICARE REPLACEMENT/A DVANTAGE - PPO) Bonnie Mercado [id number] Bonnie Mercado Notes Date Note Type Note Provider Name and Address Organization Details Recorded Time 09/04/2025 text/html Bonnie Mercado is a 65-year-old female who presents for a new patient evaluation referral from Dr. Obregon. She reports bilateral knee pain that has persisted for several years and is exacerbated by walking and daily activities such as vacuuming. She uses a cane for ambulation. She has previously received cortisone injections for her knee pain, with the last injection administered on 02/21/[address] Obregon at [facility]. The injections provided relief for approximately four to five months. However, her blood pressure was elevated to 184 mmHg during her last visit, preventing further injections. She also reports a history of sciatica, with pain radiating bilaterally from the lower back to the buttocks. She describes difficulty exercising due to her knee pain, which she believes contributes to her back pain. She has been under career services manager from August through December with Dr. Jeremy Ribera at [facility] in [place], who performed X-rays of her spine in August. She experienced a fall on 07/17/25, resulting in skin abrasions on four toes and swelling of her foot. She has been under a doctor's care for this injury and is currently using corn pads for healing. She notes that her blood pressure medication was temporarily discontinued due to foot swelling but has since resumed lisinopril. She has a history of diabetes, with blood sugar levels typically around 141 mg/dL. She experienced a severe hypoglycemic episode on 06/30, with her blood sugar dropping to 41 mg/dL, requiring hospitalization. She also had COVID-19 on 06/30 and was treated with Paxlovid, which caused an adverse reaction. She resides in [place] and prefers to receive treatment locally rather than traveling to [place]. She has upcoming appointments on 08/19 for her foot and 08/22 for cardiology evaluation.Onset: 7 years agoCharacter: ache/ dull, tinglingLocation: Low back, HipsDuration: ConstantIntensity: 9/10 (higher with activity)Worse: ActivityBetter: RestPrior Pain Medications: nonePhysical Therapy Chiropractic: completedInterventio nal Tx: previous epidural injectionsImaging/St udies: XR Lumbar Spine, XR Bilateral Knees 09/04/2025 Justin Steele MD [address] [place] [address], [id number] & [place] 09/07/2025 09:38:08 OBGyn Episode No OBEpisode recorded.
--- OUTSIDE RECORDS SUMMARY | 2025-10-04 07:32 | XMS_ITS | Data Portability ---
Author Organization [facility] Patterns, GT[employer]., [place] - [facility] [place] Address [address] [place] [address] Care Team Providers Care Medical Records Library Professor Name Role Phone DESTINI 911 Dispatcher [phone] Assessment Encounter Date Assessment Date Assessment LastModified by Organization Details LastModified Time 07/07/2025 07/07/2025 Reviewed records from [facility] 2 weeks [email or web address] Not available 07/10/2025 10:17:57 Plan of Treatment Reminders Order Date Submit Date Provider Last Modified By Organization Details Last Modified Time Details Appointments None recorded. Lab HbA1c (hemoglobin A1c), blood [address], [address], 5 09:13:37 rapid flu (A+B) [address], [address], 5 09:13:37 rapid SARS CoV 2 Ag, QL, IA, upper respiratory specimen [address], [address], 5 09:13:37 Referral None recorded. Procedures None recorded. Surgeries None recorded. Imaging XR, hand, 3 or more view 2024 025 [facility], [address] [place] [address], [id number], 5 08:45:47 XR, foot, 3 or more view 2024 025 [facility], [address] [place] [address], [address], 08:46:35 Medication Orders mupirocin 2 % topical ointment 2024 025 [facility], [address] [place] [address], [address], 14:31:06 Silvadene 1 % topical cream 2024 025 [facility], [address] [place] [address], [address], 14:31:06 doxycycline hyclate 100 mg tablet 2024 025 [facility], [address] [place] [address], [address], 13:30:44 loratadine 10 mg tablet 2024 025 [facility], [address] [place] [address], [address], 5 17:26:14 clopidogrel 75 mg tablet 2024 025 [facility], [address] [place] [address], [address], 5 14:50:53 atorvastati n 80 mg tablet 2024 025 [facility], [address] [place] [address], [address], 5 17:26:15 pantoprazol e 40 mg tablet,ethan yed release 2024 025 [facility], [address] [place] [address], [address], 5 17:26:15 glipizide ER 10 mg tablet, extended release 24 hr 2024 025 [facility], [address] [place] [address], [address], 5 17:26:16 Jardiance 25 mg tablet 2024 025 [facility], [address] [place] [address], [address], 5 17:26:15 metformin ER 500 mg tablet,exte nded release 24 hr 2024 025 [facility], [address] [place] [address], [address], 5 14:50:52 Rybelsus 14 mg tablet 2024 025 [facility], [address] [place] [address], [address], 5 17:26:16 atenolol 25 mg tablet [address] [facility] [address] [facility], [address] [place] [address], [address], 5 13:11:48 hydrochloro thiazide 25 mg tablet [address], [address] [place] [address], [address], 5 13:10:40 isosorbide mononitrate ER 30 mg tablet,exte nded release 24 hr 2024 025 [facility], [address] [place] [address], [address], 14:50:53 levothyroxi ne 125 mcg tablet 2024 025 [facility], [address] [place] [address], [address], 14:50:54 Paxlovid 300 mg (150 mg x 2)-100 mg tablets in a dose pack 2024 025 [facility], [address] [place] [address], [address], 14:00:33 Bactrim DS 800 mg-160 mg tablet 2024 025 [facility], [address] [place] [address], [address], 13:48:49 Silvadene 1 % topical cream 2024 025 [facility], [address] [place] [address], [address], 14:26:12 prednisone 20 mg tablet 2024 025 [facility], [address] [place] [address], [address], 08:23:09 Patient TargetsNo targets recorded. Patient Instructions Encounter Date Encounter Id Patient Instructions Last Modified By Organization Details Last Modified Time 06/30/2025 [id number] allergies: care instructions [email or web address] Not available 06/30/2025 11:55:41 learning about type 2 diabetes Not available 06/30/2025 09:13:37 type 2 diabetes: care instructions Not available 06/30/2025 09:13:37 07/07/2025 [id number] low blood pressure: care instructions [email or web address] Not available 07/10/2025 10:17:58 07/21/2025 [id number] type 2 diabetes: care instructions Not available 07/24/2025 11:43:02 Reason for Referral None Reported. Results Created Date Observation Date Name Description Value Unit Range Abnormal Flag Note LastModifiedBy Organization Detail LastModifiedTime 06/30/2006/30/2025 rapid SARS CoV 2 Ag, QL, IA, upper respi rator y speci men SARS CoV Ag positi ve Not Available [address], [address], 06/30/2025 08:22:46 06/30/20 25 06/30/2025 rapid flu (A+B) Flu A negati ve Not Available [address], [address], 06/30/2025 08:22:41 06/30/20 25 06/30/2025 rapid flu (A+B) Flu B negati ve Not Available [address], [address], 06/30/2025 08:22:41 06/30/20 25 06/30/2025 HbA1c (hemo globi n A1c), blood HbA1c 7.9 % Not Available [address], [address], 06/30/2025 08:21:56 08/01/20 25 XR, hand, 3 or more view No observ ation record ed. [address], [address], 08/01/2025 11:18:54 08/01/20 25 XR, foot, 3 or more view No observ ation record ed. [address], [address], 08/01/2025 11:18:54 Result Notes None recorded. Problems Name Problem SNOMED Code Status Onset Date Resolution Date Notes Provider Name and Address Organization Details Recorded Time Neck pain 86403183 Active 2023 SANDRA Krause [address] [place] [address], [address], [employer] 13:34:25 Pain of bilateral hip joints 285551725134 03462 Active 2023 SANDRA Krause [address] [place] [address], [address] 8, [employer] 08:43:39 Type 2 diabetes mellitus without complicat ion 324259985 Active 2023 SANDRA Krause [address] [place] [address], [address] 8, [employer] 13:34:35 Acute sinusitis 38313213 Active 2023 SANDRA Krause [address] [place] [address], 614[address]372 8, [employer] 08:45:57 Essential hypertens ion 24371391 Active 2023 SANDRA Krause [address] [place] [address], 01348[address]553 8, [employer] 13:34:22 Hyperlipi demia 03274864 Active 2023 SANDRA Krause [address] [place] [address], 50[address]413 8, [employer] 13:34:27 Atheroscl erosis of coronary artery without angina pectoris 540882459238 103 Active 2023 SANDRA Krause [address] [place] [address], [address] 8, [employer] 13:34:18 Hypothyro idism 82330220 Active 2023 SANDRA Krause [address] [place] [address], [address] 8, [employer] 4 13:34:31 Gastroeso phageal reflux disease without esophagit is 013459378 Active 2023 SANDRA Krause [address] [place] [address], 47[address]763 8, [employer] 4 13:34:29 Hyperglyc emia due to type 2 diabetes mellitus 083637214048 109 Active 2024 SANDRA Krause [address] [place] [address], 35[address]671 8, [employer] 5 08:36:05 Acute back pain with sciatica 271101833 Active 2024 SANDRA Krause [address] [place] [address], 05[address]-903 8, [employer] 5 08:38:33 Celluliti s of right foot 068240856755 72058 Active 2024 SANDRA Krause [address] [place] [address], 99236-217 8, [employer] 5 15:00:53 Acute COVID-19 5566248915 Active 2024 SANDRA Krause [address] [place] [address], 344[address]380 8, [employer] 5 08:35:35 Type 2 diabetes mellitus 61016181 Active 2024 SANDRA Krause [address] [place] [address], 512[address] 8, [employer] 5 11:54:34 Allergic rhinitis 76852754 Active 2024 SANDRA Krause [address] [place] [address], 574[address]746 8, [employer] 5 11:55:27 Acute cough Active 2024 SANDRA Krause [address] [place] [address], 220[address] 8, [employer] 5 08:59:54 Hypoglyce pablo due to diabetes mellitus 086510522 Active 2024 Rhonda SANDRA Hopper [address] [place] [address], 166[address] 8, [place] [employer] 10:17:06 Low blood pressure 41534732 Completed 202407/24/2025 Rhonda SANDRA Hopper [address] [place] [address], 088[address] 8, [place] [employer] 11:42:55 Injury of right foot 030646020 Active 2024 Rhonda HopperSANDRA [address] [place] [address], 28[address]274 8, [place] [employer] 13:21:34 Injury of right hand 986006452940 23370 Active 2024 Rhonda SANDRA Hopper [address] [place] [address], 196[address]90 8, [employer] 13:30:41 Glaucoma 18247661 Active 2024 Rhonda HopperSANDRA [address] [place] [address], 84[address]38 8, [place] [employer] 11:16:31 Problem Notes None recorded. Procedures Surgical History Date Name Laterality Status Provider Name and Address Organization Details Recorded Time Diabetic Foot Screen completed Rhonda HopperSANDRA [address] [place] [address], [address], [employer] 12/29/2024 16:02:08 Imaging Results None recorded. Procedure Notes None recorded. Medical Equipment None Reported. Allergies Allergen ID Allergen Name Allergen Category Reaction Reaction Severity Criticality Documentation Date Start Date Code Code System Note Provider Name and Address Organization Details Recorded Time 69820 Product containin g penicilli n (product) medicatio n rash Not available Not available 10/04/2024 47288 8001 SNOMED Mari Vice null, [employer] 4 08:02:03 47964 tizanidin e medicatio n confusion Not available Not available 04/10/2025 22519 RxNorm Mari Vice null, [employer] 11:26:21 Medications Name Sig Start Date Stop Date Status Note LastModified by Organization Details LastModified Time latanoprost 0.005 % eye drops INSTILL ONE DROP IN EACH EYE AT BEDTIME active Not Available Not Available No t Available silver sulfadiazin e 1 % topical cream APPLY A 1/16 INCH (1.5 MM) THICK LAYER TO ENTIRE BURN AREA BY TOPICAL ROUTE 2 TIMES PER DAY active Not Available Not Available No t Available atorvastati n 80 mg tablet TAKE 1 TABLET BY MOUTH EVERY DAY AT BEDTIME FOR 90 DAYS, FOR high cholester ol active Not Available Not Available No t Available doxycycline hyclate 100 mg capsule TAKE 1 CAPSULE BY MOUTH TWICE DAILY FOR 10 DAYS active Not Available Not Available No t Available azithromyci n 250 mg tablet TAKE TWO TABLETS (500 MG) BY MOUTH ONCE daily FOR ONE DAYS THEN TAKE ONE TABLET (250 MG) BY MOUTH ONCE daily FOR four DAYS 03/31 completed Not Available Not Available Not Available tizanidine 4 mg tablet TAKE ONE TABLET BY MOUTH TWICE DAILY NEEDED FOR sciatic pain 04/10 completed Not Available Not Available Not Available benzonatate 200 mg capsule TAKE 1 CAPSULE BY MOUTH 3 TIMES DAILY FOR 10 DAYS 2024 active Not Available Not Available Not Avai lable glipizide ER 10 mg tablet, extended release 24 hr TAKE 1 TABLET BY MOUTH TWICE DAILY as directed FOR 90 DAYS, FOR diabetes 2024 active Not Available Not Available Not Avai lable prednisone 20 mg tablet TAKE 1 TABLET BY MOUTH TWICE DAILY as directed FOR 5 DAYS 06/30 completed Not Available Not Available Not Available isosorbide mononitrate ER 30 mg tablet,exte nded release 24 hr Take 1 tablet every day by oral route as directed for 90 days, for heart. 2024 active Not Available Not Available Not Avai lable atenolol 25 mg tablet Take 1 tablet every day by oral route as directed for 90 days, for high blood pressure. 2024 active Not Available Not Available Not Avai lable Accu-Chek Softclix Lancets Use as directed. three times daily testing active Not Available Not Available No t Available clopidogrel 75 mg tablet Take 1 tablet every day by oral route as directed for 90 days, for blood thinner. 2024 active Not Available Not Available Not Avai lable sulfamethox azole 800 mg-trimetho prim 160 mg tablet TAKE 1 TABLET BY MOUTH every 12 hours FOR 10 DAYS 07/21 completed Not Available Not Available Not Available aspirin 81 mg tablet,ethan yed release TAKE ONE TABLET BY MOUTH EVERY DAY DIRECTED for heart health active Not Available Not Available No t Available pantoprazol e 40 mg tablet,ethan yed release TAKE 1 TABLET BY MOUTH EVERY DAY as directed FOR 90 DAYS, FOR heartburn /reflux 2024 active Not Available Not Available Not Avai lable levothyroxi ne 125 mcg tablet Take 1 tablet every day by oral route as directed for 90 days, for thyroid. 2024 active Not Available Not Available Not Avai lable nitroglycer in 0.4 mg sublingual tablet DISSOLVE ONE TABLET UNDER THE TONGUE every 5 to 15 minutes as needed for chest pain; not to exceed 3 doses per episode active Not Available Not Available No t Available hydrochloro thiazide 25 mg tablet Take 1 tablet every day by oral route as directed for 90 days, for blood pressure. 2024 active on hold Not Available Not Available Not Available mupirocin 2 % topical ointment APPLY A SMALL AMOUNT TO THE AFFECTED AREA BY TOPICAL ROUTE 3 TIMES PER DAY active Not Available Not Available No t Available methylpredn isolone 4 mg tablets in a dose pack TAKE ONE TABLET BY MOUTH DIRECTED ON package 06/20 completed Not Available Not Available Not Available lisinopril 40 mg tablet TAKE ONE TABLET BY MOUTH EVERY DAY DIRECTED FOR BLOOD PRESSURE 2024 active Not Available Not Available Not Avai lable cefdinir 300 mg capsule TAKE 1 CAPSULE BY MOUTH EVERY 12 HOURS FOR 10 DAYS 10/04 completed Not Available Not Available Not Available metformin ER 500 mg tablet,exte nded release 24 hr Take 1 tablet twice a day by oral route as directed for 90 days, for diabetes. 2024 active Not Available Not Available Not Avai lable doxycycline hyclate 100 mg tablet Take 1 tablet twice a day by oral route for 10 days. 07/28 completed Not Available Not Available Not Available loratadine 10 mg tablet TAKE 1 TABLET BY MOUTH EVERY DAY FOR 90 DAYS active Not Available Not Available No t Available Vitamin C active Not Available Not Alesha ilable Not Available Fish Oil active Not Available Not Avai lable Not Available Vitamin D3 active Not Available Not Av ailable Not Available Centrum active Not Available Not Avail able Not Available Cinnamon active Not Available Not Avai lable Not Available Farxiga 10 mg tablet TAKE 1 TABLET BY MOUTH EVERY DAY 10/04 completed Not Available Not Available Not Available Jardiance 25 mg tablet TAKE 1 TABLET BY MOUTH EVERY DAY as directed FOR 90 DAYS, FOR diabetes 2024 active Not Available Not Available Not Avai lable Tart Cruz Extract active Not Available Not Available Not Available Accu-Chek Guide test strips Use as [...] t Available Rybelsus 7 mg tablet TAKE 1 TABLET BY MOUTH EVERY DAY DIRECTED FOR DIABETES 04/10 completed Not Available Not Available Not Available aspirin 81 mg capsule Take 1 capsule every day by oral route. 12/29 completed Not Available Not Available Not Available turmeric root extract 150 mg-erika root extract 25 mg chewable tablet Take by oral route. active Not Available Not Available No t Available Paxlovid 300 mg (150 mg x 2)-100 mg tablets in a dose pack take 1 DOSE by MOUTH twice daily as directed FOR 5 DAYS 07/07 completed Not Available Not Available Not Available Vitals Date Recorded Body height Body mass index (BMI) Body weight Heart rate Oxygen saturation Oxygen saturation in Arterial blood by Pulse oximetry Body temperature Systolic And Diastolic Provider Name and Address Organization Details Last Updated DateTime 5 167.64 cm 37.5 kg/m2 054254. 15 g 86 /min 95 % 95 % 98 [degF] 120/76 mm[Hg] [facility] [employer] [facility]. 5 17:27:09 Date Recorded Body height Body mass index (BMI) Body weight Body temperature Oxygen saturation Oxygen saturation in Arterial blood by Pulse oximetry Heart rate Systolic And Diastolic Systolic And Diastolic Provider Name and Address Organization Details Last Updated DateTime 5 167.64 cm 36.7 kg/m2 473419. 9 g 97.5 [degF] 95 % 95 % 86 /min 86/50 mm[Hg] 78/48 mm[Hg] [facility] 5 08:12:35 Date Recorded Body height Body mass index (BMI) Body weight Oxygen saturation Oxygen saturation in Arterial blood by Pulse oximetry Heart rate Body temperature Systolic And Diastolic Systolic And Diastolic Systolic And Diastolic Provider Name and Address Organization Details Last Updated DateTime 5 167.64 cm 36 kg/m2 445384. 38 g 96 % 96 % 108 /min 97.8 [degF] 160/90 mm[Hg] 150/86 mm[Hg] 130/84 mm[Hg] [facility] 5 13:11:36 Date Recorded Body height Body mass index (BMI) Body weight Body temperature Heart rate Oxygen saturation Oxygen saturation in Arterial blood by Pulse oximetry Systolic And Diastolic Provider Name and Address Organization Details Last Updated DateTime 5 167.64 cm 35.7 kg/m2 372432. 91 g 97.5 [degF] 94 /min 96 % 96 % 145/84 mm[Hg] Bing Reyes [facility] 5 13:12:14 Date Recorded Body height Body mass index (BMI) Body weight Oxygen saturation Oxygen saturation in Arterial blood by Pulse oximetry Heart rate Body temperature Systolic And Diastolic Systolic And Diastolic Systolic And Diastolic Provider Name and Address Organization Details Last Updated DateTime 5 167.64 cm 36.5 kg/m2 474461. 31 g 95 % 95 % 100 /min 97.8 [degF] 156/80 mm[Hg] 128/78 mm[Hg] 138/88 mm[Hg] [facility] 5 13:09:17 Social History Question Answer Notes LastModified by Organizat ion Details LastModified Time Tobacco Smoking Status Former Smoker [employer]. 10/04/2024 08:02:04 Do You Have An Advance Directive? No Information not available 10/04/2024 Is Your Home Air Conditioned? Yes Information not available 10/04/2024 If You Are , What Was Your Level Of Alcohol Consumption Prior To ? None Information not available 10/04/2024 Do You Wear A Helmet When Biking? No Information not available 10/04/2024 Are You Blind Or Do You Have Difficulty Seeing? No Information not available 10/04/2024 What Is Your Level Of Caffeine Consumption? Moderate Information not available 10/04/2024 What Type Of Lead Embedded Software Engineer Do You Use? None Information not available 10/04/2024 Have You Been To An Area Known To Be High Risk For COVID-19? No Information not available 10/04/2024 Are You Deaf Or Do You Have Serious Difficulty Hearing? No Information not available 10/04/2024 What Type Of Diet Are You Following? REGULAR Information not available 10/04/2024 What Is The Highest Grade Or Level Of School You Have Completed Or The Highest Degree You Have Received? [id number] Information not available 10/04/2024 How Many Days Of Moderate To Strenuous Exercise, Like A Brisk Walk, Did You Do In The Last 7 Days? 0 Information not available 10/04/2024 Have There Been Any Changes To Your Family Or Social Situation? No Information no t available 10/04/2024 When Did You Quit Smoking? 11-15yearssin celastcigaret te Information not available 10/04/2024 Are There Any Guns Present In Your Home? Yes Information not available 10/04/2024 Which Of Your Hands Is Dominant? Right Information not available 10/04/2024 What Is Your Home Situation? Other Information not available 10/04/2024 Do You Have A Medical Power Of Office Support Specialist? No Information not available 10/04/2024 What Was The Date Of Your Most Recent Tobacco Screening? 07/28/2025 Information not available 07/28/2025 What Is Your Current Pack Years? 10packyears Information not available 10/04/2024 Do You Have Any Pets? Yes Information not available 10/04/2024 What Is Your Relationship Status? Information not available 10/04/2024 Have You Repeated Any Grades? No Information not available 10/04/2024 Do You Use Your Seat Belt Or Car Seat Routinely? Yes Information not available 10/04/2024 Are You Sexually Active? No Information not available 10/04/2024 Do You Have Any Siblings? 1 Information not available 10/04/2024 Do You Have Smoke And Carbon Monoxide Detectors In Your Home? Yes Information not available 10/04/2024 At What Age Did You Start Smoking Tobacco? 17 Information not available 10/04/2024 Are You Passively Exposed To Smoke? No Information no t available 10/04/2024 Are There Any Smokers In Your House? No Information not available 10/04/2024 How Much Tobacco Do You Smoke? No Information not available 10/04/2024 Do You Participate In Social Media? No Information not available 10/04/2024 Do You Use Sunscreen Routinely? No Information not available 10/04/2024 Has Tobacco Cessation Counseling Been Provided? No Information not available 10/04/2024 How Many Years Have You Smoked Tobacco? 0 Information not available 10/04/2024 Have You Recently Traveled Abroad? No Information not available 10/04/2024 Do You Have Difficulty Walking Or Climbing Stairs? Yes Information not available 10/04/2024 Are You Currently In School? No Information not available 10/04/2024 Do You Have Any Dietary Restrictions? No Information not available 10/04/2024 Sex: Female Functional Status Question Answer Note LastModified by Organizat ion Details LastModified Time Do you use any illicit or recreational drugs? No Information not available 10/04/2024 Do you or have you ever used any other forms of tobacco or nicotine? No Information not available 10/04/2024 What is your level of alcohol consumption? None Information not available 10/04/2024 Are you currently employed? No Information not available 10/04/2024 Do you have transportation difficulties? No Information not available 10/04/2024 Are you able to walk independently without assistance or assistive devices? YESASSIST Information not available 10/04/2024 Do you have difficulty doing errands alone? No Information not available 10/04/2024 Are you able to care for yourself independently? Yes Information not available 10/04/2024 Do you have difficulty dressing, bathing, grooming, or toileting? No Information not available 10/04/2024 What is your exercise level? Occasional Information not available 10/04/2024 Mental Status Question Answer Note LastModified by Organizat ion Details LastModified Time Do you feel stressed (tense, restless, nervous, or anxious, or unable to sleep at night)? [id number] Information not available 10/04/2024 Do you have difficulty concentrating, remembering or making decisions? No Information no t available 10/04/2024 Are you or have you been involved with bullying? No Information not available 10/04/2024 Family History Relationship Description Onset Age of this Age Resolved Age Notes LastModified by Organization Details LastModified Time Mother Hypercholest erolemia Not available 2023 08:02:03 Mother Hypertensive disorder Not available 2023 08:02:03 Mother Heart disease Not available 2023 08:02:03 Brother Hypercholest erolemia Not available 2023 08:02:03 Brother Hypertensive disorder Not available 2023 08:02:03 Brother Heart disease Not available 2023 08:02:03 Father Hypercholest erolemia Not available 2023 08:02:03 Father Hypertensive disorder Not available 2023 08:02:03 Father Heart disease Not available 2023 08:02:03 Medical History Condition Response Coronary Artery Disease N Other N Gout N Kidney Stones N Blood Diseases N Hyperthyroidism N Breast Cancer N Blood Transfusion N Emergency room visit since last appointm ent. N Hypothyroidism N Lung Disease N COPD N Dermatologic Disorders N Depression N Defects or Inherited Disease N Developmental or Behavioral Disorders N Breast Problem N Difficulty Swallowing N Anesthesia Complications N History of STI N Meniere's disease N Anxiety Disorder N Muscle, Joint, or Bone Problems N Autoimmune disease N Vision or Eye Problems Y Arthritis N Polyps N Infertility N Mental Disorder N Congenital Anomalies N Acid Reflux (GERD) N Cancer N Stroke N Neurologic/Epilepsy N Endometriosis N Bladder or Kidney Problems N High Cholesterol Y Liver Disease N Psychiatric/Mental Health Condition N Organ Transplant N Dialysis N Fibromyalgia N Schizophrenia N Headaches N Kidney Disease N Allergies/Hayfever N Heart Problems N Ear or Hearing Problems N Hospitalizations N Learning Disorder N Artificial Joints N Thyroid Problems Y GI Problems N Acne N ADD/ADHD N Eating Disorder N Anemia N Constipation N Mental Illness N Ovarian Cancer N Diabetes Y Bedwetting N Hepatitis/Liver Disease N Tuberculosis N Eczema N Diverticulitis N Abuse/Domestic Violence N Asthma N Trauma/Violence N Substance Abuse N Reflux/GERD N Depression/ depression N Hepatitis N Heart Disease Y Pulmonary Embolism N Tourette Syndrome N Pre-Eclampsia N Hypertension Y Chronic Ear Infections N Osteoporosis N Chicken Pox N Autism Spectrum Disorder (ASD) N Thrombophilias N Gynecological History Statement/Question Response Menses Monthly N If Post Menopausal, Age at Menopause 54 HPV Vaccine N Date of Last Pap Smear Most Recent Mammogram Age at First Child 22 Obstetrics History GPAL:G 1 P 1 0 0 1 Type Value Multiple Births 0 Full Term 1 Induced 0 Spontaneous 0 Premature 0 Living 1 Ectopics 0 Total 1 Immunizations Vaccine Type Date Status Note Provider Nam e and Address Organization Details Recorded Time Influenza, high-dose, trivalent, PF 4 completed SANDRA Krause [address] [place] [address], [id number] [employer] 10/04/2024 13:26:42 Influenza, MDCK, quadrivalent, PF 1 completed Mari Vice null, [employer] 12/29/2024 08:12:45 COVID-19, mRNA, LNP-S, PF, 30 mcg/0.3 mL dose 1 completed Mari Vice null, [employer] 12/29/2024 08:12:45 COVID-19, mRNA, LNP-S, PF, 30 mcg/0.3 mL dose 1 completed Mari Vice null, [employer] 12/29/2024 08:12:45 pneumococcal polysaccharide PPV23 0 completed Mari Vice null, [employer] 12/29/2024 08:12:45 Influenza, split virus, quadrivalent, PF 0 completed Mari Vice null, [employer] 12/29/2024 08:12:45 Influenza, split virus, quadrivalent, PF 2 completed Mari Vice null, [employer] 12/29/2024 08:12:45 Past Encounters Encounter ID Performer Location Encounter Start Date Encounter Closed Date Diagnosis/Indication Diagnosis SNOMED-CT Code Diagnosis ICD10 Code Diagnosis IMO Codes Diagnosis Note [id number] Rhonda Hopper [address] [address] 10/04/2024 07:44:04 10/04/2024 09:00:12 Administration of influenza vaccine 11897693 Z23 Pain in right arm 654888 004 M79.601 Neck pain 67600740 M54.2 Pain of bi lateral hip joints 8824674845 0922656 M25.551 M25.552 Type 2 jorge betes mellitus without complication 979288719 E11.9 Acute sinusitis 49324285 J01.90 Essential hypertension 40001532 I10 Hyperlipidemia 16511735 E78.5 Atheroscle rosis of coronary artery without angina pectoris 3965991761 85610 I25.10 Hypothyroidism 91442792 E03.9 Gastroesop hageal reflux disease without esophagitis 133964851 K21.9 [id number] SANDRA Krause [facility] [address] [place] [address] 12/29/2024 07:49:24 12/29/2024 09:03:07 Type 2 diabetes mellitus without complication 134048606 E11.9 Atheroscle rosis of coronary artery without angina pectoris 4152573553 81894 I25.10 Essential hypertension 65510174 I10 Gastroesop hageal reflux disease without esophagitis 231756583 K21.9 Hyperlipidemia 97574675 E78.5 Hypothyroidism 39029754 E03.9 Neck pain 53379317 M54.2 Acute sinusitis 08178848 J01.90 HIV screening 693029560 Z11.4 Hepatitis C screening 41 1595050 Z11.59 Body mass index 30+ - obesity 795564207 Z68.37 Postmenopausal state 764 16369 Z78.0 [id number] SANDRA Krause [address] [address] 03/31/2025 07:48:30 03/31/2025 08:37:13 Type 2 diabetes mellitus without complication 031828980 E11.9 Increase Glipizide, Increase Metformin, Increase Rybelsus - patient does not want to have to use injections Acute back pain with sciatica 203321712 M54.41 31093368 [id number] SANDRA Krause [address] [address] 06/16/2025 14:29:07 06/16/2025 15:03:01 Cellulitis of right foot 7925101144 7419709 L03.115 015354 Antibiotic s, ointment as directedKe ep clean and dryStop peroxideRT C if redness spreads, pain is worse, drainage is foul, etc [id number] SANDRA Krause [address] [address] 06/20/2025 17:11:31 06/20/2025 17:52:26 Cellulitis of right foot 2821443287 1547881 L03.115 102056 RTC if not improving [id number] SANDRA Krause [address] [address] 06/30/2025 07:58:26 06/30/2025 08:45:37 Type 2 diabetes mellitus 55839308 E11.9 89136675 Chill 55778732 R68.83 617978 Acute COVID-19 734506051 8 U07.0 6699702986 Patient positive for [id number] otensive but alert, orientedWi ll hold BP meds (med list printed and these were marked for her)Increa se fluidsStat es her will be home with her all weekend - to ER if weak, faint, lightheade d, etc Essential hypertension 79104878 I10 Hyperlipidemia 34445291 E78.5 Atheroscle rosis of coronary artery without angina pectoris 5771782082 30189 I25.10 Type 2 jorge betes mellitus without complication 541472376 E11.9 Increase Glipizide, Increase Metformin, Increase Rybelsus - patient does not want to have to use injections Hypothyroidism 47409268 E03.9 Gastroesop hageal reflux disease without esophagitis 619301894 K21.9 Allergic rhinitis 104816 04 J30.9 1001089729 [id number] SANDRA Krause [facility] [address] [place] [address] 07/07/2025 12:51:00 07/07/2025 13:43:41 Acute COVID-19 4966457427 U07.6 6949687818 This has resolvedHa d hypoglycem ia after taking Paxlovid - it was stopped and she was admitted for observatio n but is doing better Hypoglycem ia due to diabetes mellitus 263835762 E11.649 87416 Low blood pressure 60095 003 I95.9 4559785288 [id number] SANDRA Krause [facility] [address] [place] [address] 07/21/2025 12:54:48 07/21/2025 13:33:02 Cellulitis of right foot 7626727934 2806447 L03.115 446623 New abrasions - keep clean and dry. RTC if not improving. Type 2 jorge betes mellitus without complication 855746767 E11.9 Increase Glipizide, Increase Metformin, Increase Rybelsus - patient does not want to have to use injections [id number] SANDRA Krause [facility] [address] [place] [address] 07/28/2025 12:56:07 07/28/2025 13:33:44 Injury of right foot 946592468 S99.921D 0629013 Cellulitis of right foot 5135282800 2385079 L03.115 Injury of right hand 273 0760145 3820473 S69.91XA 3147194 Health Concerns Section Related Observation LastModified by Organization Detai ls LastModified Time None Recorded Concern Status LastModified by Organization Details LastModified Time None Recorded Advance Directives Directive N: Payers Insurance Date Sequence Insurance Name Policy Number Policy Haro Covered Member ID Haro Member ID Guarantor Name 12/30/2024 [place] Bonnie Mercado [id number] Bonnie Mercado 06/30/2025 [place] [employer] - [facility] Bonnie Mercado [id number] Bonnie Mercado 08/03/2025 1 [employer] (MEDICARE REPLACEMENT/AD VANTAGE - PPO) Bonnie P Jess [id number] Bonnie Mercado 01/02/2025 SLIDING FEE SCHEDULE - DISCOUNT Bonnie Mercado Notes Date Note Type Note Provider Name and Address Organization Details Recorded Time 06/20/2025 text/html ROS as noted in the HPI Patient presents for follow up of cellulitis of right foot. Started after wearing new shoes and a blister popped. Doesn't really look any better but doesnt' look any worse. Thinks she has gout in her great toe. Has a blister on her 5th toe because she has been trying to wear flip flops to let the other wound heal. SANDRA Krause [address] [place], [address], [employer] 06/20/2025 17:51:23 06/30/2025 text/html ROS as noted in the HPI Patient has had fever, chills, malaise, body aches X 3-4 days. Denies ear pain, sore throat, vomiting or diarrhea. Has been seen for infection in right foot after having blister bust, but that is much better. SANDRA Krause [address] [place], [address], [employer] 06/30/2025 11:58:33 07/07/2025 text/html ROS as noted in the HPI Patient presents for followup.Last week she was seen for follow up on her right foot infection. Had body aches, chills. Tested positive for COVID19. Was hypotensive at the time - blood pressure medicines held. Started on Paxlovid. Went home, took her medicine, went to bed. found her later. FSBS was 41 - EMS was called. She was given glucagon, symptoms improved. She was kept at the hospital for observation but did better. Foot is also still improving. SANDRA Krause [address] [place] [address], [phone], [employer]. 07/10/2025 10:18:45 07/21/2025 text/html ROS as noted in the HPI Patient presents for followup.Patient has had cellulitis of her right foot. It was healing well but a few days ago she was startled by a raccoon on her back porch and fell down the steps, scraping the skin off the tops of her toes and foot. She does have a history of diabetes. SANDRA Krause [address] [place], [address], [employer]. 07/24/2025 11:43:59 07/28/2025 text/html ROS as noted in the HPI Patient presents to follow up on right foot. She had a poorly healing wound on her right foot that was getting better. She fell last week and scraped the skin off of her toes. They are still sore and swollen. Right middle finger is also sore and swollen. She is diabetic. SANDRA Krause [address] [place], [address], [employer] 07/28/2025 14:28:33 OBGyn Episode No OBEpisode recorded.
--- OUTSIDE RECORDS SUMMARY | 2025-10-04 07:32 | XMS_ITS | Continuity of Care Document ---
Author Organization [facility] [place] [facility], [place], Operated By [facility]- [place] New Address [address] [address] Care Team Providers Care Milk Route Deliverer Name Role Phone KIRTI OBREGON Referring Provider [phone] Assessment Encounter Date Assessment Date Assessment LastModified [...] joint condition. Recommend initiating physical therapy at [facility]. Plan for a single injection of [...] (PROC) - Bilateral Knee Synvisc one 2024 MONTSE Steele MD, [address], [address], [place], [address], 09/07/2025 09:38:26 Surgeries None recorded. Imaging XR, knee - bilateral knees 2024 [facility] (Radiology), [address] [place] [address] [place], [address], 09/12/2025 14:28:53 XR, lumbar spine 2024 025 [facility]Radiology[facility] [place], [address], 09/12/2025 14:31:04 Medication Orders None recorded. Patient TargetsNo targets recorded. Patient Instructions Encounter Date Encounter Id Patient Instructions Last Modified By Organization Details Last Modified Time 09/04/2025 [id number] physical therapy * - working on bilateral knees for 4-6 weeks at a frequency of at least 2-3 sessions per week [employer] Not available 10/02/2025 10:31:10 Reason for Referral None Reported. Results Created Date Observation Date Name Description Value Unit Range Abnormal Flag Note LastModifiedBy Organization Detail LastModifiedTime 09/05/2009/04/2025 XR, knee No observ ation record ed. [email or web address] (Radiology) [place], [id number], 09/12/2025 14:29:01 09/05/2009/04/2025 XR, knee No observ ation record ed. [email or web address] (Radiology) [address] [place], [address], 09/12/2025 14:30:02 09/05/2009/04/2025 XR, lumba r spine No observ ation record ed. [facility] (Radiology) [address] , [place], [address], 09/12/2025 14:31:04 Result Notes None recorded. Medical [...] LAYER TO ENTIRE BURN AREA BY TOPICALRO KAREN 2 TIMES PER DAY 08/24 completed Not [...] Address Organization Details Last Updated DateTime 5 396610. 88 g 91 % 91 % 117 /min 147/88 mm[Hg] Bashir Michel [place] - [facility] - [place] [facility] [place] 14:28:58 Social History None recorded. Functional Status [...] ICD10 Code Diagnosis IMO Codes Diagnosis Note [id number] Justin Steele MD [facility]- [address] [place] [address] 09/04/2025 13:04:37 09/04/2025 14:41:19 Pain of knee region 4209792731 M25.561 M25.562 G89.29 44508930 - Bilateral knee pain, chronic: Schedule X-rays of bilateral knees to assess joint condition. Chronic back pain 298192 002 M54.9 G89.29 30932361 Pain of bi lateral knee regions 4146312308 53894 M25.561 Bilateral sciatica [address] 9681973 M54.31 Bilateral osteoarthritis of knees 0561279593 18017 M17.0 72509977 - Bilateral knee pain, chronic: Schedule X-rays of bilateral knees to assess joint condition. -Patient would benefit from physical therapy working on bilateral knees for 4-6 weeks at a frequency of at least 2-3 sessions per week. Patient request Pt be at [facility].- Plan for a single injection of Synvisc-On e for both knees under X-ray guidance. Health Concerns Section Related Observation LastModified by Organization Detai ls LastModified Time None Recorded Concern Status LastModified by Organization Details LastModified Time None Recorded Payers Encounter Date Sequence Insurance Name Policy Number Policy Haro Covered Member ID Haro Member ID Guarantor Name 09/04/2025 1 [employer] (MEDICARE REPLACEMENT/A DVANTAGE - PPO) Bonnie Mercado [id number] Bonnie Mercado Notes Date Note Type Note [...] administered on 02/21/[address] Obregon at [facility]. The injections provided relief for approximately four [...] her back pain. 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 Jeremy Ribrea at [facility] in [place], who performed X-rays of her spine in [...] caused an adverse reaction. She resides in [place] and prefers to receive treatment locally rather than traveling to [place]. She has upcoming appointments on 08/19 for her foot and 08/22 for cardiology evaluation.Onset: 7 years agoCharacter: ache/ dull, tinglingLocation: Low back, HipsDuration: ConstantIntensity: 9/10 (higher with activity)Worse: ActivityBetter: RestPrior Pain Medications: nonePhysical Therapy Chiropractic: completedInterventio nal Tx: previous epidural injectionsImaging/St udies: XR Lumbar Spine, XR Bilateral Knees 09/04/2025 Justin Steele MD [address] [place] [address], [phone] [place] 09/07/2025 09:38:08 OBGyn Episode No OBEpisode recorded.
--- NOTE | 2025-10-04 08:00 | CA_ITS ---
APPROVED REPORT EXAM: Comprehensive 2D, Doppler, and color-flow Echocardiogram [employer] Pan[employer] Deburrer: Blossom De La O RVT Ht: 5 ft 6 in Wt: 224lbs BSA: 2.10 BP: 162/82 mmHg Indications: EDEMA,SHORTNESS OF BREATH,RECENT COVID 2D Dimensions LA Volume 27.80 mL LA Volume Index 13.24 mL/m2 (M/F) 16-34 M-Mode Dimensions RVDd 3.02 cm (0.9-2.6) LA Diam 3.30 cm (1.9-4.0) LVDd 4.44 cm (3.5-5.7) LVDs 3.23 cm (3.5-5.7) IVSd 1.28 cm (0.6-1.1) PWd 0.76 cm (0.6-1.1) EF (Teich) 53.20% FS 27.30% EDV (Teich) 89.60 mL TAPSE 1.98 (<1.7) ESV (Teich) 41.90 mL LV Diastology E Decel Time 230 (160-240 msec) E/A Ratio 0.7 Aortic Valve BARNEY Index 1.19 cm2/m2 AoV Peak Arnol. 145.0 (50-130 cm/s) AO Peak GR. 8.40 mmHg AO Mean GR. 4.40 (<5 mmHg) AO VTI 29.2 (18-25 cm) BARNEY (VTI) 2.56 (2.5-4.5 cm2) Mitral Valve MV E Max Arnol. 69.0 (40-130 cm/s) MV A Velocity 98.0 (40-130 cm/s) E/A Ratio 0.70 MV PHT 67.0 ms Pulmonary Valve PV Peak Velocity 71.0 (50-150 cm/s) Left Ventricle The left ventricle is normal size. Left ventricular systolic function is mildly reduced. There is increased left ventricular wall thickness. The septum is asynchronous. Grade 1 diastolic dysfunction is present. LVEF is 45%. Right Ventricle Right ventricle is mildly dilated. The right ventricular systolic function is mildly reduced. Atria The left atrium size is normal. The right atrium size is normal. There is no color Doppler evidence of interatrial shunt. Aortic Valve The aortic valve is mildly thickened. There is no hemodynamically significant aortic valvular stenosis. Trace aortic regurgitation is present. Mitral Valve The mitral valve is normal in structure. No evidence of mitral valve stenosis. Trace mitral regurgitation is present. Tricuspid Valve The tricuspid valve leaflets are thin and pliable. Trace tricuspid regurgitation. There is insufficient TR jet to estimate RVSP. Pulmonic Valve The pulmonary valve is grossly normal in structure. Trace pulmonic valve regurgitation is present. Great Vessels The aortic root is normal in size. IVC is normal in size and collapses >50% with inspiration. Pericardium There is no pericardial effusion. Other Information Study Quality: Fair Conclusion Mildly reduced LV systolic function (LVEF 45%). Asynchronous septum. Mild RV dilation with mild reductoin in RV function. No significant valvular stenosis or regurgitation. Electronically signed by : Abby Billings MD 10/14/2025 01:26:31
--- NOTE | 2025-10-04 08:45 | US_ITS ---
FINAL REPORT CLINICAL HISTORY: CLAUDICATION,HTN,DM,HLD,EX SMOKER,WOUNDS RT FOOT FINDINGS: ANKLE-BRACHIAL PRESSURE INDICES Pressure indices are as follows: RIGHT LOWER EXTREMITY: Ankle-brachial pressure index: 1.11 Comments: Normal LEFT LOWER EXTREMITY: Ankle-brachial pressure index: 0.96 Comments: Normal IMPRESSION: No evidence of significant obstructive peripheral vascular disease of the lower extremities Reviewed, Interpreted and Dictated by Aliza Vasquez MD Transcribed by Angela Shaw Authenticated and . [facility]
== END 2025-10-04 23:59 | disposition home or self-care (01) ==
LOC: RT 07:30
PROVIDERS: PCP Physician Assistant; Visit Provider Nurse Practitioner Family
DX: I11.9 Hypertensive heart disease without heart failure (principal); I73.9 Peripheral vascular disease, unspecified; S91.301A Unspecified open wound, right foot, initial encounter; I25.118 Atherosclerotic heart disease of native coronary artery with other forms of angina pectoris; E78.5 Hyperlipidemia, unspecified; Z87.891 Personal history of nicotine dependence; R93.1 Abnormal findings on diagnostic imaging of heart and coronary circulation
CPT/HCPCS: 93306; 93923

== ENCOUNTER 2025-11-01 06:06 | Outpatient (CLI) | payer MEDICARE, SELFPAY ==
--- NOTE | 2025-11-01 | CA_ITS ---
APPROVED REPORT Exam: Pharmacologic Technologist: Lalitha Salcido Stress Nurse: Kallie LOCKHART, RN Ht: 5 ft 6 in Wt: 225 lbs BSA: 2.10 m2 HR: 67 bpm BP: 123/71 mmHg Indications: Shortness of breath, angina equivalent, coronary artery disease, new onset of heart failure with reduced ejection fraction. Stress Test Details Test: Lexiscan HR Resting HR: 67 bpm Max Heart Rate (APMHR): 154.241383 bpm Max HR Achieved: 90 bpm Target HR (85% APMHR): 130.403909 bpm % of APMHR: 58.44 Recovery HR: 76 bpm BP Resting BP: 123.0/71.0 mmHg Max BP: 146.0/77.0 mmHg Recovery BP: 146.0/77.0 mmHg ECG Resting ECG: Sinus rhythm Stress ECG Conclusion Lungs clear to auscultation prior to test start. Symptoms: None Arrhythmias/Ectopy: PAC ST-T Changes: Less than 0.[address] segment changes. Electronically signed by : Abby Billings MD 11/07/2025 13:06:20
--- OUTSIDE RECORDS SUMMARY | 2025-11-01 06:10 | XMS_ITS | Data Portability ---
Author Organization [facility] [employer] [place] [facility] [place] Address [address] [place] [address] Care Team Providers Care Adoption Worker Name Role Phone DESTINI Lead Consultant [phone] Assessment Encounter Date Assessment Date Assessment LastModified by Organization Details LastModified Time 07/07/2025 07/07/2025 Reviewed records from [facility] 2 weeks [email or web address] Not available 07/10/2025 10:17:57 Plan of Treatment Reminders Order Date Submit Date Provider Last Modified By Organization Details Last Modified Time Details Appointments None recorded. Lab HbA1c (hemoglobin A1c), blood [address], [address], 5 09:13:37 rapid flu (A+B) [address], [address], 5 09:13:37 rapid SARS CoV 2 Ag, QL, IA, upper respiratory specimen [address], [address], 5 09:13:37 Referral None recorded. Procedures None recorded. Surgeries None recorded. Imaging XR, hand, 3 or more view 2024 025 [facility], [address] [place] [address], [address], 5 08:45:47 XR, foot, 3 or more view 2024 025 [facility], [address] [place] [address], [address], 08:46:35 Medication Orders mupirocin 2 % topical ointment [address] [facility], [address] [place] [address], [address], 14:31:06 Silvadene 1 % topical cream 2024 025 [facility], [address] [place] [address], [address], 14:31:06 doxycycline hyclate 100 mg tablet [address] [facility], [address] [place] [address], [address], 13:30:44 loratadine 10 mg tablet 2024 025 [facility], [address] [place] [address], [address], 5 17:26:14 clopidogrel 75 mg tablet 2024 025 [facility], [address] [place] [address], [address], 5 14:50:53 atorvastati n 80 mg tablet 2024 025 [facility], [address] [place] [address], [address], 5 17:26:15 pantoprazol e 40 mg tablet,ethan yed release [address] [facility], [address] [place] [address], [address], 5 17:26:15 glipizide ER 10 mg tablet, extended release 24 hr 2024 025 [facility], [address] [place] [address], [address], 5 17:26:16 Jardiance 25 mg tablet 2024 025 [facility], [address] [place] [address], [address], 5 17:26:15 metformin ER 500 mg tablet,exte nded release 24 hr 2024 025 [facility], [address] [place] [address], [address], 5 14:50:52 Rybelsus 14 mg tablet [address] [facility], [address] [place] [address], [address], 5 17:26:16 atenolol 25 mg tablet 2024 025 [facility], [address] [place] [address], [address], 5 13:18:45 hydrochloro thiazide 25 mg tablet [address] [facility], [address] [place] [address], [address], 5 13:10:40 isosorbide mononitrate ER 30 mg tablet,exte nded release 24 hr 2024 025 [facility], [address] [place] [address], [address], 14:50:53 levothyroxi ne 125 mcg tablet 2024 025 [facility], [address] [place] [address], [address], 14:50:54 Paxlovid 300 mg (150 mg x 2)-100 mg tablets in a dose pack 2024 025 [facility], [address] [place] [address], [address], 14:00:33 Bactrim DS 800 mg-160 mg tablet 2024 025 [facility], [address] [place] [address], [address], 13:48:49 Silvadene 1 % topical cream 2024 025 [facility], [address] [place] [address], [address], 5 14:26:12 prednisone 20 mg tablet 2024 025 [facility], [address] [place] [address], [address], 08:23:09 Patient TargetsNo targets recorded. Patient Instructions Encounter Date Encounter Id Patient Instructions Last Modified By Organization Details Last Modified Time 06/30/2025 [id number] allergies: care instructions [email or web address] Not available 06/30/2025 11:55:41 learning about type 2 diabetes [email or web address] Not available 06/30/2025 09:13:37 type 2 diabetes: care instructions [email or web address] Not available 06/30/2025 09:13:37 07/07/2025 [id number] low blood pressure: care instructions Not available 07/10/2025 10:17:58 07/21/2025 [id number] type 2 diabetes: care instructions [email or web address] Not available 07/24/2025 11:43:02 Reason for Referral None Reported. Results Created Date Observation Date Name Description Value Unit Range Abnormal Flag Note LastModifiedBy Organization Detail LastModifiedTime 06/30/2006/30/2025 rapid SARS CoV 2 Ag, QL, IA, upper respi rator y speci men SARS CoV Ag positi ve Not Available [address], [address], 06/30/2025 08:22:46 06/30/20 25 06/30/2025 rapid flu (A+B) Flu A negati ve Not Available [address], [address], 06/30/2025 08:22:41 06/30/20 25 06/30/2025 rapid flu (A+B) Flu B negati ve Not Available [address], [address], 06/30/2025 08:22:41 06/30/20 25 06/30/2025 HbA1c (hemo globi n A1c), blood HbA1c 7.9 % Not Available [address], [address], 06/30/2025 08:21:56 08/01/20 25 XR, hand, 3 or more view No observ ation record ed. [email or web address] [address], [address], 08/01/2025 11:18:54 08/01/20 25 XR, foot, 3 or more view No observ ation record ed. [email or web address] [place] [address], [address], 08/01/2025 11:18:54 10/04/20 25 10/04/2025 ankle brach ial index No observ ation record ed. [facility] [address], [place], [address], 10/05/2025 16:24:47 10/14/20 25 10/04/2025 , echoc ardio gram No observ ation record ed. [email or web address] [facility] [address], [place], [address], 10/16/2025 09:28:23 Result Notes None recorded. Problems Name Problem SNOMED Code Status Onset Date Resolution Date Notes Provider Name and Address Organization Details Recorded Time Neck pain 26376499 Active 2023 SANDRA Krause [address] [place] [address], [address], [employer] 13:34:25 Pain of bilateral hip joints 752882743547 20628 Active 2023 SANDRA Krause [address] [place] [address], [address], [place] [employer] 4 08:43:39 Type 2 diabetes mellitus without complicat ion 406361902 Active 2023 SANDRA Krause [address] [place] [address], [address], [employer] 13:34:35 Acute sinusitis 27610493 Active 2023 SANDRA Krause [address] [place] [address], [address], [place] [employer] 08:45:57 Essential hypertens ion 96662394 Active 2023 SANDRA Krause [address] [place] [address], [address], [employer] 13:34:22 Hyperlipi demia 04383660 Active 2023 SANDRA Krause [address] [place] [address], [address], [employer] 4 13:34:27 Atheroscl erosis of coronary artery without angina pectoris 515017121401 103 Active 2023 SANDRA Krause [address] [place] [address], [address], [employer] 4 13:34:18 Hypothyro idism 08774760 Active 2023 SANDRA Krause [address] [place] [address], [address], [employer] 4 13:34:31 Gastroeso phageal reflux disease without esophagit is 808897737 Active 2023 SANDRA Krause [address] [place] [address], [address] 8, [employer] 4 13:34:29 Hyperglyc emia due to type 2 diabetes mellitus 794170034062 109 Active 2024 SANDRA Krause [address] [place] [address], [address], [employer] 5 08:36:05 Acute back pain with sciatica 382533573 Active 2024 SANDRA Krause [address] [place] [address], [address] 8, [employer] 5 08:38:33 Celluliti s of right foot 608149428226 56510 Active 2024 SANDRA Krause [address] [place] [address], [address] 8, [employer] 5 15:00:53 Acute COVID-19 9625604135 Active 2024 SADNRA Krause [address] [place] [address], [address] 8, [employer] 5 08:35:35 Type 2 diabetes mellitus 28973224 Active 2024 SANDRA Krause [address] [place] [address], [address] 8, [employer] 11:54:34 Allergic rhinitis 47834579 Active 2024 SANDRA Krause [address] [place] [address], [address] 8, [employer] 11:55:27 Acute cough Active 2024 SANDRA Krause [address] [place] [address], 67[address] 8, [employer] 08:59:54 Hypoglyce pablo due to diabetes mellitus 739055976 Active 2024 SANDRA Krause [address] [place] [address], [address] 8, [employer] 10:17:06 Low blood pressure 45195017 Completed 202407/24/2025 SANDRA Krause [address] [place] [address], [address] 8, [employer] 11:42:55 Injury of right foot 871870663 Active 2024 SANDRA Krause [address] [place] [address], [address] 8, [employer] 13:21:34 Injury of right hand 582539988802 08565 Active 2024 SANDRA Krause [address] [place] [address], [address] 8, [employer] 13:30:41 Glaucoma 98284528 Active 2024 SANDRA Krause [address] [place] [address], [address], [employer] 11:16:31 Problem Notes None recorded. Procedures Surgical History Date Name Laterality Status Provider Name and Address Organization Details Recorded Time Diabetic Foot Screen completed SANDRA Krause [address] [place] [address], [address], [employer] 12/29/2024 16:02:08 Imaging Results None recorded. Procedure Notes None recorded. Medical Equipment None Reported. Allergies Allergen ID Allergen Name Allergen Category Reaction Reaction Severity Criticality Documentation Date Start Date Code Code System Note Provider Name and Address Organization Details Recorded Time 07411 Product containin g penicilli n (product) medicatio n rash Not available Not available 10/04/2024 43817 8001 SNOMED Rudder, [employer] 4 08:02:03 56686 tizanidin e medicatio n confusion Not available Not available 04/10/2025 15022 RxNorm Rudder, [employer]. 5 11:26:21 Medications Name Sig Start Date Stop [...] as directed FOR 90 DAYS FOR HEART 2024 active Not Available Not Available Not [...] directed FOR 90 DAYS, FOR blood thinner 2024 active Not Available Not Available Not [...] Avai lable levothyroxi ne 125 mcg tablet TAKE 1 TABLET BY MOUTH EVERY DAY as directed FOR 90 DAYS, FOR THYROID 2024 active Not Available Not Available Not [...] BY MOUTH EVERY DAY FOR 90 DAYS 2024 active Not Available Not Available Not Avai lable Rybelsus 7 mg tablet TAKE 1 TABLET [...] (BMI) Body weight Heart rate Oxygen saturation Body temperature Systolic And Diastolic Provider Name and Address Organization Details Last Updated DateTime 5 167.64 cm 37.5 kg/m2 631398. 15 g 86 /min 95 % 98 [degF] 120/76 mm[Hg] [employer] 5 17:27:09 Date Recorded Body height Body mass index (BMI) Body weight Body temperature Oxygen saturation Heart rate Systolic And Diastolic Systolic And Diastolic Provider Name and Address Organization Details Last Updated DateTime 5 167.64 cm 36.7 kg/m2 264893. 9 g 97.5 [degF] 95 % 86 /min 86/50 mm[Hg] 78/48 mm[Hg] [employer] 5 08:12:35 Date Recorded Body height Body mass index (BMI) Body weight Oxygen saturation Heart rate Body temperature Systolic And Diastolic Systolic And Diastolic Systolic And Diastolic Provider Name and Address Organization Details Last Updated DateTime 5 167.64 cm 36 kg/m2 012408. 38 g 96 % 108 /min 97.8 [degF] 160/90 mm[Hg] 150/86 mm[Hg] 130/84 mm[Hg] [facility] 5 13:11:36 Date Recorded Body height Body mass index (BMI) Body weight Body temperature Heart rate Oxygen saturation Systolic And Diastolic Provider Name and Address Organization Details Last Updated DateTime 5 167.64 cm 35.7 kg/m2 226746. 91 g 97.5 [degF] 94 /min 96 % 145/84 mm[Hg] Bing Reyes [employer]. 5 13:12:14 Date Recorded Body height Body mass index (BMI) Body weight Oxygen saturation Heart rate Body temperature Systolic And Diastolic Systolic And Diastolic Systolic And Diastolic Provider Name and Address Organization Details Last Updated DateTime 5 167.64 cm 36.5 kg/m2 059973. 31 g 95 % 100 /min 97.8 [degF] 156/80 mm[Hg] 128/78 mm[Hg] 138/88 mm[Hg] [employer] 5 13:09:17 Social History Question Answer Notes LastModified by Organizat ion Details LastModified Time Tobacco Smoking Status Former Smoker Mari thornton, [facility] [employer] 10/04/2024 08:02:04 Do You Have An Advance [...] Information not available 10/04/2024 What Type Of Microfilmer Do You Use? None Information not available [...] Or The Highest Degree You Have Received? [id number] Information not available 10/04/2024 How Many Days [...] Do You Have A Medical Power Of Plant And Equipment Worker? No Information not available 10/04/2024 What Was [...] anxious, or unable to sleep at night)? [id number] Information not available 10/04/2024 Do you have [...] Stones N Blood Diseases N Hyperthyroidism N Blood Transfusion N Breast Cancer N Emergency room visit since last appointm ent. N COPD N Depression N Dermatologic Disorders N Lung Disease N Hypothyroidism N Developmental or Behavioral Disorders N Defects or Inherited Disease N Breast Problem N Difficulty Swallowing N Anesthesia Complications N History of STI N Anxiety Disorder N Meniere's disease N Autoimmune disease N Muscle, Joint, or Bone Problems N Vision or Eye Problems Y Arthritis N Infertility N Polyps N Mental Disorder N Congenital Anomalies N Acid Reflux (GERD) N Cancer N Stroke N Neurologic/Epilepsy N Endometriosis N Bladder or Kidney Problems N High Cholesterol Y Liver Disease N Psychiatric/Mental Health Condition N Organ Transplant N Fibromyalgia N Headaches N Schizophrenia N Dialysis N Kidney Disease N Allergies/Hayfever N Heart [...] Y Pulmonary Embolism N Tourette Syndrome N Chronic Ear Infections N Pre-Eclampsia N Hypertension Y Chicken Pox N Autism Spectrum Disorder (ASD) N Osteoporosis N Thrombophilias N Gynecological History Statement/Question Response [...] high-dose, trivalent, PF 4 completed SANDRA Krause [address] [place] [address], [address], [employer] 10/04/2024 13:26:42 Influenza, MDCK, quadrivalent, PF 1 completed Mari thornton, [employer] 12/29/2024 08:12:45 COVID-19, mRNA, LNP-S, PF, 30 mcg/0.3 mL dose 1 completed Mari Vice null, [employer] 12/29/2024 08:12:45 COVID-19, mRNA, LNP-S, PF, 30 mcg/0.3 mL dose 1 completed Mari Vice null, [employer] 12/29/2024 08:12:45 pneumococcal polysaccharide PPV23 0 completed Mari Vice null, [employer] 12/29/2024 08:12:45 Influenza, split virus, quadrivalent, PF 0 completed Mari Vice null, [employer] 12/29/2024 08:12:45 Influenza, split virus, quadrivalent, PF 2 completed Mari Vice null, [employer] 12/29/2024 08:12:45 Past Encounters Encounter ID Performer Location Encounter Start Date Encounter Closed Date Diagnosis/Indication Diagnosis SNOMED-CT Code Diagnosis ICD10 Code Diagnosis IMO Codes Diagnosis Note [id number] SANDRA Krause [address] [address] 10/04/2024 07:44:04 10/04/2024 09:00:12 Administration of influenza vaccine 33365701 Z23 Pain in right arm 547578 004 M79.601 Neck pain 24224188 M54.2 Pain of bi lateral hip joints 8050945048 9691237 M25.551 M25.552 Type 2 jorge betes mellitus without complication 623336188 E11.9 Acute sinusitis 99353971 J01.90 Essential hypertension 90245473 I10 Hyperlipidemia 61962924 E78.5 Atheroscle rosis of coronary artery without angina pectoris 5734408320 09450 I25.10 Hypothyroidism 43220590 E03.9 Gastroesop hageal reflux disease without esophagitis 331110561 K21.9 [id number] SANDRA Krause [address] [address] 12/29/2024 07:49:24 12/29/2024 09:03:07 Type 2 diabetes mellitus without complication 921870116 E11.9 Atheroscle rosis of coronary artery without angina pectoris 3837670269 79050 I25.10 Essential hypertension 16081977 I10 Gastroesop hageal reflux disease without esophagitis 857593996 K21.9 Hyperlipidemia 01961644 E78.5 Hypothyroidism 51458094 E03.9 Neck pain 93270776 M54.2 Acute sinusitis 42550653 J01.90 HIV screening 565794592 Z11.4 Hepatitis C screening 41 4529796 Z11.59 Body mass index 30+ - obesity 337710510 Z68.37 Postmenopausal state 764 43560 Z78.0 [id number] SANDRA Krause [address] [address] 03/31/2025 07:48:30 03/31/2025 08:37:13 Type 2 diabetes mellitus without complication 876228408 E11.9 Increase Glipizide, Increase Metformin, Increase Rybelsus - patient does not want to have to use injections Acute back pain with sciatica 464553486 M54.41 57558830 [id number] SANDRA Krause [address] [address] 06/16/2025 14:29:07 06/16/2025 15:03:01 Cellulitis of right foot 9969784243 8229002 L03.115 977485 Antibiotic s, ointment as directedKe ep clean and dryStop peroxideRT C if redness spreads, pain is worse, drainage is foul, etc [id number] SANDRA Krause [address] [address] 06/20/2025 17:11:31 06/20/2025 17:52:26 Cellulitis of right foot 4669825607 1015798 L03.115 816279 RTC if not improving [id number] SANDRA Krause [address] [address] 06/30/2025 07:58:26 06/30/2025 08:45:37 Type 2 diabetes mellitus 13075796 E11.9 [id number] Chill 61964737 R68.83 [id number] Acute COVID-19 582503223 8 U07.8 4844075196 Patient positive for [id number] otensive but alert, orientedWi ll hold BP meds (med list printed and these were marked for her)Darshan gambino fluidsStat es her will be home with her all weekend - to ER if weak, faint, lightheade d, etc Essential hypertension 30743516 I10 Hyperlipidemia 72250653 E78.5 Atheroscle rosis of coronary artery without angina pectoris 8234720021 92239 I25.10 Type 2 jorge betes mellitus without complication 324130127 E11.9 Increase Glipizide, Increase Metformin, Increase Rybelsus - patient does not want to have to use injections Hypothyroidism 28804660 E03.9 Gastroesop hageal reflux disease without esophagitis 359900373 K21.9 Allergic rhinitis 265535 04 J30.9 4265345331 [id number] SANDRA Krause [address] [address] 07/07/2025 12:51:00 07/07/2025 13:43:41 Acute COVID-19 4878557092 U07.7 [id number] This has resolvedHa d hypoglycem ia after taking Paxlovid - it was stopped and she was admitted for observatio n but is doing better Hypoglycem ia due to diabetes mellitus 548968139 E11.649 57884 Low blood pressure 83315 003 I95.9 1096308231 [id number] SANDRA Krause [address] [address] 07/21/2025 12:54:48 07/21/2025 13:33:02 Cellulitis of right foot 2316104736 8656482 L03.115 603383 New abrasions - keep clean and dry. RTC if not improving. Type 2 jorge betes mellitus without complication 232042182 E11.9 Increase Glipizide, Increase Metformin, Increase Rybelsus - patient does not want to have to use injections [id number] SANDRA Krause [address] [address] 07/28/2025 12:56:07 07/28/2025 13:33:44 Injury of right foot 959671545 S99.921D 6107467 Cellulitis of right foot 6271348317 1861358 L03.115 Injury of right hand 809 7561471 8231441 S69.91XA 5353323 Health Concerns Section Related Observation LastModified by Organization Detai ls LastModified Time None Recorded Concern Status LastModified by Organization Details LastModified Time None Recorded Advance Directives Directive N: Payers Insurance Date Sequence Insurance Name Policy Number Policy Haro Covered Member ID Haro Member ID Guarantor Name 12/30/2024 [place] Miladysiri Jess [id number] Iniri Jess 06/30/2025 [place] [employer] [facility] Nyiri P Jess [id number] Nyiri Jess 08/03/2025 1 [employer] (MEDICARE REPLACEMENT/AD VANTAGE - PPO) Miladysiri P Jess [id number] Iniri Jess 01/02/2025 SLIDING FEE SCHEDULE - DISCOUNT Bonnie [...] let the other wound heal. SANDRA Krause [address] [place] [address], [address], [employer] 06/20/2025 17:51:23 06/30/2025 text/html ROS as noted in the HPI Patient has had fever, chills, malaise, body aches X 3-4 days. Denies ear pain, sore throat, vomiting or diarrhea. Has been seen for infection in right foot after having blister bust, but that is much better. SANDRA Krause [address] [place] [address], [address], [employer] 06/30/2025 11:58:33 07/07/2025 text/html ROS as [...] Foot is also still improving. SANDRA Krause [address] [place], [address], [employer]. 07/10/2025 10:18:45 07/21/2025 text/html ROS as noted [...] a history of diabetes. SANDRA Krause [address] [place], [address], [employer] 07/24/2025 11:43:59 07/28/2025 text/html ROS as noted [...] swollen. She is diabetic. SANDRA Krause [address] [place], [address], [employer]. 07/28/2025 14:28:33 OBGyn Episode No OBEpisode recorded.
--- NOTE | 2025-11-01 06:30 | NM_ITS ---
APPROVED REPORT Exam: Nuclear Stress Test Indication: Abnormal ECHO, HTN, DM, High cholesterol, Family history Patient Location: Outpatient Stress Tech: Lalitha Salcido PAULA Tech:Darshana Short, ARRT, RT (R)(N) Ht: 5 ft 6 in Wt: 222 lbs Bra Size: 42D HR: 70 bpm BP: 123/71 mmHg BSA: 2.09 m2 TID: 1.05 BMI: 35.8 History: Abnormal ECHO, HTN, DM, High cholesterol, Family history Procedure: Patient received 0.4 mg of intravenous Lexiscan, resting heart rate 70 bpm, resting blood pressure 123/71 mmHg, with Lexiscan maximum heart rate achieved was 90 bpm which is 146 % of the maximum predicted heart rate and blood pressure was 77/ mmHg. With Lexiscan, patient denied any complaint of chest pain. Cardiac Stress and Resting SPECT Images: Cardiac Stress and Resting SPECT images were obtained using technetium 99m Myoview 30.6 mCi stress and 10.49 mCi at rest. Resting and stress imaging in supine and prone positions demonstrate a medium sized, moderate, partially reversible perfusion defect in the basal to mid inferior LV george. Gated imaging demonstrates normal global LV systolic function. LVEF is calculated at 58%. Conclusion: Medium sized, moderate, partially reversible perfusion defect in the basal to mid inferior LV george. Gated imaging demonstrates normal global LV systolic function. LVEF is calculated at 58%. Electronically signed by : Abby Billings MD 11/07/2025 12:51:45
[2025-11-01 08:00] VITALS: BP 123/71; PULSE 67; RESP 14
[2025-11-01] MEDS: ISOTOPE MYOVIEW (PER STUDY) 1 DOSE IV (08:14)
[2025-11-01] MEDS: SODIUM CHLORIDE 0.9% 10ML SYR (RAD ONLY) 10 ML IV ×2 (08:14)
== END 2025-11-01 23:59 | disposition home or self-care (01) ==
LOC: RAD 06:08
PROVIDERS: PCP Physician Assistant; Visit Provider Nurse Practitioner Family
DX: I49.1 Atrial premature depolarization (principal); I11.0 Hypertensive heart disease with heart failure; I50.21 Acute systolic (congestive) heart failure; I25.118 Atherosclerotic heart disease of native coronary artery with other forms of angina pectoris; I42.8 Other cardiomyopathies; E11.9 Type 2 diabetes mellitus without complications; E78.00 Pure hypercholesterolemia, unspecified; R93.1 Abnormal findings on diagnostic imaging of heart and coronary circulation; R94.39 Abnormal result of other cardiovascular function study
CPT/HCPCS: 78452; 93017; 93018; A9502; J2785

== ENCOUNTER 2025-11-21 09:22 | Day surgery (SDC) | payer MEDICARE, SELFPAY ==
[2025-11-21] VITALS (10 sets, daily range): BP systolic 108–156; BP diastolic 49–93; PULSE 72–85; RESP 20; O2SAT 92–99; BMI 35.8
--- NOTE | 2025-11-21 07:51 | IR_ITS ---
APPROVED REPORT Patient Location: Outpatient PROCEDURES Left heart catheterization Left ventriculogram Selective coronary angiogram Drug-eluting stent deployment to the proximal LAD Intravascular ultrasound to the LAD INDICATION Coronary artery disease, Worsening angina pectoris, Abnormal Myoview, Complex intervention requiring IVUS guidance Informed consent was obtained prior to the procedure. COMPLICATIONS noneq Estimated Blood Loss: less than 10ml TECHNIQUE One percent lidocaine used to anesthetize the right anterior aspect of the wrist. The right radial artery was accessed via the Seldinger technique. A 6 Romansh sheath was placed in the right radial artery. 2.5 mg of Verapamil, 800 mcg of nitroglycerin, 1mg Lidocaine and 5000 U Heparin were given through the arterial sheath. The JL3 catheter was also used to perform left heart catheterization, left ventriculogram and selective coronary angiogram. At the end of the diagnostic angiogram therapeutic heparin was administered giving a therapeutic ACT and the guide catheter was placed in left main artery followed by Choice PT extra-support wire down the LAD. A 3.5 x 18 mm [place] frontier stent was deployed in the ostial proximal LAD at 20 halle reducing the stenosis to 0%. Intravascular ultrasound probe was then advanced which demonstrated good stent apposition with excellent expansion. At the end the procedure the apparatus was removed the sheath was removed hemostasis was achieved using TR banding patient was transferred to the postop putting in stable ANGIOGRAPHIC RESULTS The left main artery Normal The left anterior descending artery Has a proximal concentric 70% stenosis representing in-stent restenosis. The stent extends from the proximal to mid segment. The midportion has 20 to 30% in-stent restenosis. Distally there is diffuse mild to moderate atheromatous plaque The circumflex artery Large and dominant with diffuse proximal and mid vessel 10 to 20% luminal regularities The right coronary artery Nondominant ostially occluded with a distal vessel filling via [id number] collaterals The TIDWELL ventriculogram reveals Preserved 60% The left ventricular end-diastolic pressure 15 mmHg IMPRESSION Severe disease in the proximal LAD which also collateralized a chronically occluded right coronary artery Successful stenting of the proximal LAD severe disease reduced to 0% with 1 drug-eluting stent Successful intravascular ultrasound interrogation Preserved ejection fraction Normal LVEDP PLAN 1. Dual antiplatelet therapy 2. LDL less than 55 to be achieved with high intensity statin 3. Avoidance of tobacco products 4. Risk factor modification 5. cardiac rehabilitation Electronically signed by : Tony Clark MD 11/21/2025 11:51:42
[2025-11-21 09:50] LABS: Hematocrit 39.8 % (37.0-47.0); Hemoglobin 13.1 g/dL (12.2-16.2); Immature Granulocytes % 0.3 %; Mean Corpuscular HGB Conc 32.9 g/dL (31.8-35.4); Mean Corpuscular Hemoglobin 27.1 pg (27.0-31.2); Mean Corpuscular Volume 82.2 fl (81-99); Nucleated Red Blood Cells % 0 %; Platelet Count 167 K/mm3 (142-424); Red Blood Count 4.84 M/mm3 (4.20-5.40); Red Cell Distribution Width-SD 48.5 fL; White Blood Count 7.0 K/mm3 (4.8-10.8)
[2025-11-21 09:55] LABS: Anion Gap 15.2 mEq/L (5-15); Blood Urea Nitrogen 40 mg/dl (7-17); Calcium 10.1 mg/dl (8.4-10.2); Carbon Dioxide 24 mmol/L (22.0-30.0); Chloride 105 mmol/L (98-107); Creatinine Clearance Estimated 73 mL/min (50-200); Creatinine,Serum 1.20 mg/dl (0.52-1.04); Estimated Glomerular Filt Rate 45 ml/min (>60); GFR (African American) 54 ML/MIN (>60); Glucose 176 mg/dl (74-100); Potassium 4.2 mmoL/L (3.5-5.1); Sodium 140 mmol/L (136-145)
[2025-11-21] MEDS: 0.9 % SODIUM CHLORIDE 500 ML 25 ML IV (11:20)
[2025-11-21] MEDS: LIDOCAINE 1% 10ML MDV 10 ML IJ (11:20)
[2025-11-21] MEDS: NITROGLYCERIN 800MCG/8ML SYR (CATH LAB) 800 MCG IA (11:20)
[2025-11-21] MEDS: HEPARIN 1,000 UNITS/ML 10ML VIAL (CATH LAB) 5000 UNIT IV ×2 (11:21→11:48)
[2025-11-21] MEDS: VERAPAMIL 2.5MG/ML 2ML VIAL 2.5 MG IV (11:21)
[2025-11-21] MEDS: HEPARIN 1,000 UNITS/500ML NS (CATH LAB) 3000 UNIT IV (11:22)
[2025-11-21] MEDS: FENTANYL 100MCG/2ML VIAL 50 MCG IV (11:48)
[2025-11-21] MEDS: MIDAZOLAM HCL 1MG/ML 5ML VIAL 1 MG IV (11:48)
[2025-11-21 14:26] LABS: CATHL Activated Clotting Time > 400 SEC (74-125)
--- NOTE | 2025-12-01 14:06 | PC.NURSE ---
12/01/2025 Pt stated she has back and knee pain and will not do Rehab at this time.
== END 2025-11-21 14:51 | disposition home or self-care (01) ==
PROVIDERS: PCP Physician Assistant; Visit Provider Internal Medicine
PROC: 4A023N7 Measurement of Cardiac Sampling and Pressure, Left Heart, Percutaneous Approach (ICD-10-PCS; CPT 93452; principal; 2025-11-21 09:30)
DX: I25.118 Atherosclerotic heart disease of native coronary artery with other forms of angina pectoris (principal); T82.855A Stenosis of coronary artery stent, initial encounter; R93.1 Abnormal findings on diagnostic imaging of heart and coronary circulation; I50.21 Acute systolic (congestive) heart failure; I11.0 Hypertensive heart disease with heart failure; I42.8 Other cardiomyopathies; E11.9 Type 2 diabetes mellitus without complications; I65.23 Occlusion and stenosis of bilateral carotid arteries; R06.02 Shortness of breath; E78.2 Mixed hyperlipidemia; E03.9 Hypothyroidism, unspecified; E66.9 Obesity, unspecified; Z68.35 Body mass index [BMI] 35.0-35.9, adult; K21.9 Gastro-esophageal reflux disease without esophagitis; I73.9 Peripheral vascular disease, unspecified; Z86.73 Personal history of transient ischemic attack (TIA), and cerebral infarction without residual deficits; Z87.891 Personal history of nicotine dependence; Z79.82 Long term (current) use of aspirin; Z79.02 Long term (current) use of antithrombotics/antiplatelets; Z79.84 Long term (current) use of oral hypoglycemic drugs; Z79.85 Long-term (current) use of injectable non-insulin antidiabetic drugs; Z79.890 Hormone replacement therapy; Z79.899 Other long term (current) drug therapy; Z88.0 Allergy status to penicillin; Z88.2 Allergy status to sulfonamides; Z88.8 Allergy status to other drugs, medicaments and biological substances; Y84.8 Other medical procedures as the cause of abnormal reaction of the patient, or of later complication, without mention of misadventure at the time of the procedure
CPT/HCPCS: 36415; 80048; 85025; 85347; 92928; 92978; 93458; 99152; C1725; C1769; C1874; C1887; C9600; J1200; J1644; J3010; J7040; Q9967

== ENCOUNTER 2025-11-24 07:16 | Outpatient (CLI) | payer MEDICARE, SELFPAY ==
--- OUTSIDE RECORDS SUMMARY | 2025-11-24 07:19 | XMS_ITS | Data Portability ---
Author Organization 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 Lab HbA1c (hemoglobin A1c), blood [address], [address], 5 09:13:37 rapid flu (A+B) [address], [address], 5 09:13:37 rapid SARS CoV 2 Ag, QL, IA, upper respiratory specimen [address], [address], 5 09:13:37 Referral None recorded. Procedures None recorded. Surgeries None recorded. Imaging XR, hand, 3 or more view 2024 025 [facility], [address] [place] [address], [address], 5 08:45:47 XR, foot, 3 or more view 2024 025 [facility], [address] [place] [address], [address], 08:46:35 Medication Orders mupirocin 2 % topical ointment 2024 025 [facility], [address] [place] [address], [address], 14:31:06 Silvadene 1 % topical cream 2024 025 [facility], [address] [place] [address], [address], 14:31:06 doxycycline hyclate 100 mg tablet 2024 025 [facility], [address] [place] [address], [address], 13:30:44 loratadine 10 mg tablet 2024 025 [facility], [address] [place] [address], [address], 5 17:26:14 clopidogrel 75 mg tablet 2024 025 [facility], [address] [place] [address], [address], 5 14:50:53 atorvastati n 80 mg tablet 2024 025 [facility], [address] [place] [address], [address], 5 17:26:15 pantoprazol e 40 mg tablet,ethan yed release 2024 025 [facility], [address] [place] [address], [address], 5 17:26:15 glipizide ER 10 mg tablet, extended release 24 hr 2024 025 [facility], [address] [place] [address], [address], 5 17:26:16 Jardiance 25 mg tablet 2024 025 [facility], [address] [place] [address], [address], 5 17:26:15 metformin ER 500 mg tablet,exte nded release 24 hr 2024 025 [facility], [address] [place] [address], [address], 5 14:50:52 Rybelsus 14 mg tablet 2024 025 [facility], [address] [place] [address], [address], 5 17:26:16 atenolol 25 mg tablet 2024 025 [facility], [address] [place] [address], [address], 5 13:18:45 hydrochloro thiazide 25 mg tablet [address] [address] [facility], [address] [place] [address], [address], 5 13:10:40 isosorbide mononitrate ER 30 mg tablet,exte nded release 24 hr 2024 025 [facility], [address] [place] [address], [address], 14:50:53 levothyroxi ne 125 mcg tablet 2024 025 [facility], [address] [place] [address], [address], 14:50:54 Paxlovid 300 mg (150 mg x 2)-100 mg tablets in a dose pack 2024 025 [facility], [address] [place] [address], [address], 14:00:33 Bactrim DS 800 mg-160 mg tablet 2024 025 [facility], [address] [place] [address], [address], 13:48:49 Silvadene 1 % topical cream 2024 025 [facility], [address] [place] [address], [address], 5 14:26:12 prednisone 20 mg tablet 2024 025 [facility], [address] [place] [address], [address], 08:23:09 Patient TargetsNo targets recorded. Patient Instructions Encounter Date Encounter Id Patient Instructions Last Modified By Organization Details Last Modified Time 06/30/2025 [id number] allergies: care instructions [email or web address] Not available 06/30/2025 11:55:41 learning about type 2 diabetes Not available 06/30/2025 09:13:37 type 2 diabetes: care instructions [email or web address] Not available 06/30/2025 09:13:37 07/07/2025 [id number] low blood pressure: care instructions Not available 07/10/2025 10:17:58 07/21/2025 [id number] type 2 diabetes: care instructions [email or web address] Not available 07/24/2025 11:43:02 Reason for Referral None Reported. Results Created Date Observation Date Name Description Value Unit Range Abnormal Flag Note LastModifiedBy Organization Detail LastModifiedTime 06/30/2006/30/2025 rapid SARS CoV 2 Ag, QL, IA, upper respi rator y speci men SARS CoV Ag positi ve Not Available [address], [address], 06/30/2025 08:22:46 06/30/20 25 06/30/2025 rapid flu (A+B) Flu A negati ve Not Available [address], [address], 06/30/2025 08:22:41 06/30/20 25 06/30/2025 rapid flu (A+B) Flu B negati ve Not Available [address], [address], 06/30/2025 08:22:41 06/30/20 25 06/30/2025 HbA1c (hemo globi n A1c), blood HbA1c 7.9 % Not Available [address], [address], 06/30/2025 08:21:56 08/01/20 25 XR, hand, 3 or more view No observ ation record ed. [email or web address] [address], [address], 08/01/2025 11:18:54 08/01/20 25 XR, foot, 3 or more view No observ ation record ed. [email or web address] [place] [address], [address], 08/01/2025 11:18:54 10/04/2010/04/2025 ankle brach ial index No observ ation record ed. [facility] [address], [place], [address], 10/05/2025 16:24:47 10/14/20 25 10/04/2025 US, echoc ardio gram No observ ation record ed. [email or web address] [facility] [address], [place], [address], 10/16/2025 09:28:23 11/07/2011/01/2025 imagi ng/di agnos tic resul t No observ ation record ed. [email or web address] [facility] [address], [place], [address], 11/07/2025 13:04:26 11/07/20 25 11/01/2025 NM, myoca rdial perfu randal scan, w/ stres s No observ ation record ed. [email or web address], [place], [address], 11/07/2025 13:35:58 11/07/20 25 11/01/2025 exerc ise stres s test No observ ation record ed. [place] [id number] [facility] [place], [address], 11/07/2025 13:39:14 Result Notes None recorded. Problems Name Problem SNOMED Code Status Onset Date Resolution Date Notes Provider Name and Address Organization Details Recorded Time Neck pain 73797962 Active 2023 SANDRA Krause [address] [place] [address], [address], [place] [employer] 13:34:25 Pain of bilateral hip joints 906686574381 90978 Active 2023 SANDRA Krause [address] [place] [address], [address], [place] [employer] 08:43:39 Type 2 diabetes mellitus without complicat ion 812538576 Active 2023 SANDRA Krause [address] [place] [address], [address], [employer] 13:34:35 Acute sinusitis 02107754 Active 2023 SANDRA Krause [address] [place] [address], [address], [employer] 08:45:57 Essential hypertens ion 50402936 Active 2023 SANDRA Krause [address] [place] [address], [address], [employer] 13:34:22 Hyperlipi demia 33046895 Active 2023 SANDRA Krause [address] [place] [address], [address], [employer] 13:34:27 Atheroscl erosis of coronary artery without angina pectoris 655452139549 103 Active 2023 SANDRA Krause [address] [place] [address], [address], [employer] 13:34:18 Hypothyro idism 77162726 Active 2023 SANDRA Krause [address] [place] [address], [address], [employer] 13:34:31 Gastroeso phageal reflux disease without esophagit is 402602794 Active 2023 SANDRA Krause [address] [place] [address], [address], [employer] 13:34:29 Hyperglyc emia due to type 2 diabetes mellitus 890433002500 109 Active 2024 SANDRA Krause [address] [place] [address], [address] 8, [employer] 5 08:36:05 Acute back pain with sciatica 668386221 Active 2024 SANDRA Krause [address] [place] [address], 60[address] 8, [employer] 08:38:33 Celluliti s of right foot 032574685241 86427 Active 2024 SANDRA Krause [address] [place] [address], [address] 8, [employer] 15:00:53 Acute COVID-19 5237049807 Active 2024 SANDRA Krause [address] [place] [address], [address], [employer] 08:35:35 Type 2 diabetes mellitus 70690400 Active 2024 SANDRA Krause [address] [place] [address], 628[address] 8, [employer] 11:54:34 Allergic rhinitis 72466635 Active 2024 SANDRA Krause [address] [place] [address], 10[address] 8, [employer] 11:55:27 Acute cough Active 2024 SANDRA Krause [address] [place] [address], [address] 8, [employer] 08:59:54 Hypoglyce pablo due to diabetes mellitus 722278613 Active 2024 SANDRA Krause [address] [place] [address], [address] 8, [employer] 10:17:06 Low blood pressure 04756435 Completed 202407/24/2025 SANDRA Krause [address] [place] [address], [address] 8, [employer] 11:42:55 Injury of right foot 004138235 Active 2024 SANDRA Krause [address] [place] [address], [address] 8, [employer] 5 13:21:34 Injury of right hand 960010688399 96756 Active 2024 SANDRA Krause [address] [place] [address], [address], [employer] 5 13:30:41 Glaucoma 89446073 Active 2024 SANDRA Krause [address] [place] [address], [address], [employer] 5 11:16:31 Problem Notes None recorded. Procedures Surgical History Date Name Laterality Status Provider Name and Address Organization Details Recorded Time Diabetic Foot Screen completed Rhonda SANDRA Hopper [address] [place] [address], [address], [employer] 12/29/2024 16:02:08 Imaging Results None recorded. Procedure Notes None recorded. Medical Equipment None Reported. Allergies Allergen ID Allergen Name Allergen Category Reaction Reaction Severity Criticality Documentation Date Start Date Code Code System Note Provider Name and Address Organization Details Recorded Time 21845 Product containin g penicilli n (product) medicatio n rash Not available Not available 10/04/2024 46533 8001 SNOMED [facility] [employer], [employer] 4 08:02:03 23818 tizanidin e medicatio n confusion Not available Not available 04/10/2025 30648 RxNorm [facility] [employer], [employer] 5 11:26:21 Medications Name Sig Start Date [...] Updated DateTime 5 167.64 cm 37.5 kg/m2 191775. 15 g 86 /min 95 % 98 [degF] 120/76 mm[Hg] [employer] 5 17:27:09 Date Recorded Body height Body mass index (BMI) Body weight Body temperature Oxygen saturation Heart rate Systolic And Diastolic Systolic And Diastolic Provider Name and Address Organization Details Last Updated DateTime 5 167.64 cm 36.7 kg/m2 074229. 9 g 97.5 [degF] 95 % 86 /min 86/50 mm[Hg] 78/48 mm[Hg] [employer] 5 08:12:35 Date Recorded Body height Body mass index (BMI) Body weight Oxygen saturation Heart rate Body temperature Systolic And Diastolic Systolic And Diastolic Systolic And Diastolic Provider Name and Address Organization Details Last Updated DateTime 5 167.64 cm 36 kg/m2 387874. 38 g 96 % 108 /min 97.8 [degF] 160/90 mm[Hg] 150/86 mm[Hg] 130/84 mm[Hg] [employer] 5 13:11:36 Date Recorded Body height Body mass index (BMI) Body weight Body temperature Heart rate Oxygen saturation Systolic And Diastolic Provider Name and Address Organization Details Last Updated DateTime 167.64 cm 35.7 kg/m2 453962. 91 g 97.5 [degF] 94 /min 96 % 145/84 mm[Hg] Bing Reyes [employer] 13:12:14 Date Recorded Body height Body mass index (BMI) Body weight Oxygen saturation Heart rate Body temperature Systolic And Diastolic Systolic And Diastolic Systolic And Diastolic Provider Name and Address Organization Details Last Updated DateTime 167.64 cm 36.5 kg/m2 462030. 31 g 95 % 100 /min 97.8 [degF] 156/80 mm[Hg] 128/78 mm[Hg] 138/88 mm[Hg] Mari Elliott [employer]. 13:09:17 Social History Question Answer Notes LastModified by Organizat ion Details LastModified Time Tobacco Smoking Status Former Smoker Mari Elliott norberto, [employer] 10/04/2024 08:02:04 Do You Have An Advance [...] Information not available 10/04/2024 What Type Of Legal Records Manager Do You Use? None Information not available [...] Or The Highest Degree You Have Received? [id number] Information not available 10/04/2024 How Many Days [...] Do You Have A Medical Power Of Environmental Department Manager? No Information not available 10/04/2024 What Was [...] Functional Status Question Answer Note LastModified by [employer] Details LastModified Time Do you use [...] anxious, or unable to sleep at night)? [id number] Information not available 10/04/2024 Do you have [...] Hypothyroidism N Lung Disease N COPD N Depression N Dermatologic Disorders N Defects or Inherited Disease N Developmental [...] high-dose, trivalent, PF 4 completed SANDRA Krause [address] [place] [address], [address], [employer] 10/04/2024 13:26:42 Influenza, MDCK, quadrivalent, PF 1 completed Mari Vice null, [employer] 12/29/2024 08:12:45 COVID-19, mRNA, LNP-S, PF, 30 mcg/0.3 mL dose 1 completed Mari Vice null, [employer] 12/29/2024 08:12:45 COVID-19, mRNA, LNP-S, PF, 30 mcg/0.3 mL dose 1 completed Mari Vice null, [employer] 12/29/2024 08:12:45 pneumococcal polysaccharide PPV23 0 completed Mari Vice null, [employer] 12/29/2024 08:12:45 Influenza, split virus, quadrivalent, PF 0 completed Mari Vice null, [employer] 12/29/2024 08:12:45 Influenza, split virus, quadrivalent, PF 2 completed Mari Vice null, [employer] 12/29/2024 08:12:45 Past Encounters Encounter ID Performer Location Encounter Start Date Encounter Closed Date Diagnosis/Indication Diagnosis SNOMED-CT Code Diagnosis ICD10 Code Diagnosis IMO Codes Diagnosis Note [id number] SANDRA Krause [facility] [address] [place] [address] 10/04/2024 07:44:04 10/04/2024 09:00:12 Administration of influenza vaccine 89529338 Z23 Pain in right arm 347741 004 M79.601 Neck pain 97871778 M54.2 Pain of bi lateral hip joints 6742420507 2653617 M25.551 M25.552 Type 2 jorge betes mellitus without complication 206018063 E11.9 Acute sinusitis 43497965 J01.90 Essential hypertension 11380469 I10 Hyperlipidemia 85898324 E78.5 Atheroscle rosis of coronary artery without angina pectoris 0882890619 98722 I25.10 Hypothyroidism 61035992 E03.9 Gastroesop hageal reflux disease without esophagitis 222775091 K21.9 [id number] SANDRA Krause [address] [address] 12/29/2024 07:49:24 12/29/2024 09:03:07 Type 2 diabetes mellitus without complication 917312346 E11.9 Atheroscle rosis of coronary artery without angina pectoris 7135712601 45409 I25.10 Essential hypertension 96092520 I10 Gastroesop hageal reflux disease without esophagitis 194780504 K21.9 Hyperlipidemia 03122650 E78.5 Hypothyroidism 94572206 E03.9 Neck pain 00561236 M54.2 Acute sinusitis 69452052 J01.90 HIV screening 515421314 Z11.4 Hepatitis C screening 41 6728447 Z11.59 Body mass index 30+ - obesity 992544035 Z68.37 Postmenopausal state 764 64852 Z78.0 [id number] SANDRA Krause [address] [address] 03/31/2025 07:48:30 03/31/2025 08:37:13 Type 2 diabetes mellitus without complication 643064663 E11.9 Increase Glipizide, Increase Metformin, Increase Rybelsus - patient does not want to have to use injections Acute back pain with sciatica 488341748 M54.41 54402842 [id number] SANDRA Krause [address] [address] 06/16/2025 14:29:07 06/16/2025 15:03:01 Cellulitis of right foot 6645654526 6958552 L03.115 025016 Antibiotic s, ointment as directedKe ep clean and dryStop peroxideRT C if redness spreads, pain is worse, drainage is foul, etc [id number] SANDRA Krause [facility] [address] [place] [address] 06/20/2025 17:11:31 06/20/2025 17:52:26 Cellulitis of right foot 0778181342 3631027 L03.115 590124 RTC if not improving [id number] SNADRA Krause [address] [address] 06/30/2025 07:58:26 06/30/2025 08:45:37 Type 2 diabetes mellitus 73959776 E11.9 [id number] Chill 51444731 R68.83 770805 Acute COVID-19 312024487 8 U07.0 3338116656 Patient positive for PAYZR10Vpm otensive but alert, orientedWi ll hold BP meds (med list printed and these were marked for her)Increa se fluidsStat es her will be home with her all weekend - to ER if weak, faint, lightheade d, etc Essential hypertension 28792174 I10 Hyperlipidemia 16171077 E78.5 Atheroscle rosis of coronary artery without angina pectoris 0000302208 19850 I25.10 Type 2 jorge betes mellitus without complication 848053907 E11.9 Increase Glipizide, Increase Metformin, Increase Rybelsus - patient does not want to have to use injections Hypothyroidism 27758577 E03.9 Gastroesop hageal reflux disease without esophagitis 396400174 K21.9 Allergic rhinitis 588401 04 J30.9 7963692632 [id number] SANDRA Krause [address] [address] 07/07/2025 12:51:00 07/07/2025 13:43:41 Acute COVID-19 3209082141 U07.8 1821836902 This has resolvedHa d hypoglycem ia after taking Paxlovid - it was stopped and she was admitted for observatio n but is doing better Hypoglycem ia due to diabetes mellitus 975575211 E11.649 34871 Low blood pressure 64190 003 I95.9 8402317652 [id number] SANDRA Krause [facility] [address] [place] [address] 07/21/2025 12:54:48 07/21/2025 13:33:02 Cellulitis of right foot 6879791456 1192376 L03.115 154771 New abrasions - keep clean and dry. RTC if not improving. Type 2 jorge betes mellitus without complication 927576329 E11.9 Increase Glipizide, Increase Metformin, Increase Rybelsus - patient does not want to have to use injections [id number] SANDRA Krause [facility] [address] [place] [address] 07/28/2025 12:56:07 07/28/2025 13:33:44 Injury of right foot 794006344 S99.921D 0132660 Cellulitis of right foot 0999959227 3663619 L03.115 Injury of right hand 079 0462111 4988344 S69.91XA [id number] Health Concerns Section Related Observation LastModified by Organization Detai ls LastModified Time None Recorded Concern Status LastModified by Organization Details LastModified Time None Recorded Advance Directives Directive N: Payers Insurance Date Sequence Insurance Name Policy Number Policy Haro Covered Member ID Haro Member ID Guarantor Name 12/30/2024 [place] Bonnie Jess [id number] Nyiri Jess 06/30/2025 [place] [employer] - [facility] Miladysiri P Jess [id number] Nyiri Jess 08/03/2025 1 [employer] (MEDICARE REPLACEMENT/AD VANTAGE - PPO) Miladysiri P Jess [id number] Miladysiri Jess 01/02/2025 SLIDING FEE SCHEDULE - DISCOUNT [...] the other wound heal. SANDRA Krause [address] [place], [address], [employer] 06/20/2025 17:51:23 06/30/2025 text/html ROS as noted in the HPI Patient has had fever, chills, malaise, body aches X 3-4 days. Denies ear pain, sore throat, vomiting or diarrhea. Has been seen for infection in right foot after having blister bust, but that is much better. SANDRA Krause [address] [place], [address], [employer] 06/30/2025 11:58:33 07/07/2025 text/html ROS as noted [...] is also still improving. SANDRA Krause [address] [place], [address], [employer] 07/10/2025 10:18:45 07/21/2025 text/html ROS as noted [...] a history of diabetes. SANDRA Krause [address] [place], [address], [employer] 07/24/2025 11:43:59 07/28/2025 text/html ROS as noted in the HPI Patient presents to follow up on right foot. She had a poorly healing wound on her right foot that was getting better. She fell last week and scraped the skin off of her toes. They are still sore and swollen. Right middle finger is also sore and swollen. She is diabetic. SANDRA Krause [address] [place] [address], [address], [facility] [employer] 07/28/2025 14:28:33 OBGyn Episode No OBEpisode recorded.
[2025-11-24 08:03] LABS: Hematocrit 38.6 % (37.0-47.0); Hemoglobin 12.7 g/dL (12.2-16.2); Immature Granulocytes % 0.5 %; Mean Corpuscular HGB Conc 32.9 g/dL (31.8-35.4); Mean Corpuscular Hemoglobin 27.2 pg (27.0-31.2); Mean Corpuscular Volume 82.7 fl (81-99); Nucleated Red Blood Cells % 0 %; Platelet Count 157 K/mm3 (142-424); Red Blood Count 4.67 M/mm3 (4.20-5.40); Red Cell Distribution Width-SD 49.3 fL; White Blood Count 6.6 K/mm3 (4.8-10.8)
[2025-11-24 08:42] LABS: Chloride 106 mmol/L (98-107)
[2025-11-24 08:43] LABS: Potassium 4.1 mmoL/L (3.5-5.1); Sodium 139 mmol/L (136-145)
[2025-11-24 08:46] LABS: Anion Gap 16.1 mEq/L (5-15); Blood Urea Nitrogen 40 mg/dl (7-17); Calcium 10.0 mg/dl (8.4-10.2); Carbon Dioxide 21 mmol/L (22.0-30.0); Creatinine,Serum 1.20 mg/dl (0.52-1.04); Estimated Glomerular Filt Rate 45 ml/min (>60); GFR (African American) 54 ML/MIN (>60); Glucose 174 mg/dl (74-100)
== END 2025-11-24 23:59 | disposition home or self-care (01) ==
LOC: LAB 07:17
PROVIDERS: PCP Physician Assistant; Visit Provider Internal Medicine
DX: I25.10 Atherosclerotic heart disease of native coronary artery without angina pectoris (principal)
CPT/HCPCS: 36415; 80048; 85025